=== PATIENT | female | born 1945 | race Hispanic/Latino ===

== ENCOUNTER 2016-10-04 01:47 | Inpatient (IN) | payer MEDICARE ==
[2016-10-04 01:48] VITALS: BMI 47.2
[2016-10-04] MEDS ORDERED: Aspirin 325 mg EC Tablets PO STA (02:29)
[2016-10-04 02:43] LABS: BASO % 0.3 % (0.0-2.0); EOS # 0.1 K/uL (0.0-0.7); EOS % 0.4 % (0.0-4.0); HEMATOCRIT 43.8 % (34.0-47.0); LYMPH # 3.6 K/uL (1.0-4.3); LYMPH % 29.1 % (20.0-40.0); MEAN CORPUSCULAR HEMOGLOBIN 26.1 pg (27.0-31.0); MEAN CORPUSCULAR HGB CONC 31.1 g/dL (33.0-37.0); MONO # 1.3 K/uL (0.0-0.8); MONO % 10.6 % (0.0-10.0); NRBC % 0.7 % (0.0-2.0); WHITE BLOOD COUNT 12.4 K/uL (4.8-10.8)
[2016-10-04] MEDS ORDERED: Midazolam 2 MG/2 ML VIAL ONE (02:49)
[2016-10-04] MEDS ORDERED: Iodixanol 320 MG/ML 100 ML BOTTLE IV ONE (02:50)
[2016-10-04 02:52] LABS: POTASSIUM 4.1 mmol/L (3.6-5.2)
[2016-10-04 02:54] LABS: BILIRUBIN,TOTAL 1.2 mg/dL (0.2-1.3); TOTAL PROTEIN 6.6 g/dL (6.3-8.3)
[2016-10-04 02:58] LABS: ALB/GLOB RATIO 1.1 (1.0-2.1)
[2016-10-04] MEDS ORDERED: Amiodarone 150mg/3 ml vial ONE ×2 (03:03→03:22)
[2016-10-04 03:16] LABS: CALCIUM 14.7 mg/dl (8.6-10.4)
[2016-10-04 03:26] LABS: INR 1.1
--- NOTE | 2016-10-04 03:47 | CP.PCM.PN ---
<Ciara Tidwell DO - Last Filed: 10/04/16 03:40> Subjective - Date & Time of Evaluation Date of Evaluation: 10/04/16 Time of Evaluation: 03:41 - Subjective Subjective: CODE HEART: Patient is a 71 year old female with PMHx of uterine cancer, left breast tumor, hypercalcemia on sensipar, DM, CHF, A.fib, HTN, HLD, DVT/ PE s/p IVC filter placement sent from [facility] for altered mental status and low BP. Patient was brought by ALS to [facility] where Code Heart was activated. Patient received 150mg amiodarone over 10 minutes and was cardioverted twice due to reported a.flutter on EKG in the field. EKG in the ER showed new LBBB compared to prior. Patient was recently hospitalized at [facility] in 08/2016 and had catheterization with bare metal stent placement on 09/01/16. Last echo 08/12/16 showed EF 53%, moderate LVH, normal LV function. Patient was brought to hoisting laborer with director rehabilitation program Dr. Santana. Non-obstructive coronaries were seen on cath. Patient was given additional 150mg amiodarone in hoisting laborer. Patient transferred to ICU s/p cath. ROS unobtainable. PE prior to cath: diaphoretic, shallow breathing with O2 sat 99-100% on non- rebreather, rales heard bilaterally on pulmonary exam, left breast tumor noted, AICD left chest, heart tachycardic, +S1, S2, normal bowel sounds, mild bilateral lower extremity edema Meds per custodial record: losartan 100mg, effient 100mg, sensipar 30mg, metformin 500mg BID, lasix 20mg BID, sotalol 80mg BID, diltiazem 240mg ER, ASA 81mg daily, duoneb q6, atorvastatin 40mg, mucinex, pulmicort q12, omeprazole 20mg, meclizine 25mg q8, promethazine, Eliquis 5mg Objective - Vital Signs/Intake and Output Vital Signs (last 24 hours): Temp Pulse Resp BP Pulse Ox 98 F 127 H 26 H 109/75 100 10/04/16 01:57 10/04/16 03:34 10/04/16 03:34 10/04/16 03:34 10/04/16 03:34 - Medications Medications: Current Medications Heparin Sodium/Sodium Chloride (Heparin 31342 Units/250ml 1/2 Normal Saline) 250 mls @ 9.072 mls/hr IV .Q0M STA; 10 UNITS/KG/HR PRN Reason: Protocol Stop: 10/05/16 06:02 - Labs Labs: 10/04/16 02:39 10/04/16 02:39 PT 12.7 SECONDS (9.7-12.2) H 10/04/16 02:39 INR 1.1 10/04/16 02:39 APTT 122 SECONDS (21-34) H* 10/04/16 02:39 <Ascencion Mederos P - Last Filed: 10/17/16 20:12> Objective - Vital Signs/Intake and Output Vital Signs (last 24 hours): Temp Pulse Resp BP Pulse Ox 97.9 F 88 42 H 93/61 L 94 L 10/06/16 16:00 10/06/16 19:02 10/06/16 19:02 10/06/16 19:02 10/06/16 15:35 - Labs Labs: 10/06/16 06:06 10/06/16 06:06 PT 11.9 SECONDS (9.7-12.2) 10/04/16 08:26 INR 1.1 10/04/16 08:26 APTT 36 SECONDS (21-34) H D 10/04/16 17:33 Attending/Attestation - Attestation I have personally seen and examined this patient.: Yes I have fully participated in the care of the patient.: Yes I have reviewed all pertinent clinical information, including history, physical exam and plan: Yes
[2016-10-04] MEDS: Sodium Chloride 0.9% 1,000 ML IV SCH ×3 (04:33→17:18)
[2016-10-04] MEDS ORDERED: Sodium Chloride 0.9% 500 ML IV ONE (04:41)
[2016-10-04] MEDS: Heparin25000 units/250ml 1/2NS 250 ML IV STA ×2 (05:02→10:55)
[2016-10-04 05:35] LABS: ABG ALLEN TEST POS; CARBOXYHEMOGLOBIN 1.9 % (0.5-1.5); DRAW SITE RT RDIAL; METHEMOGLOBIN 1.1 % (0.0-3.0)
--- NOTE | 2016-10-04 06:24 | C.PDOC ---
History Of Present Illness 71 year old female patient presents to the ED via ALS from her [facility] after being found to have a change in mental status today. ALS notes patient was cardioverted twice and was gave patient 150 mg Amiodarone. Pt denies fever, chills, nausea, headaches, dizziness, or any other complaints. Chief Complaint (Nursing): Chest Pain History/Exam Limitations: None Onset/Duration Of Symptoms: Hrs Current Symptoms Are (Timing): Still Present Severity: Mild Recent travel outside of the [place]: No Associated Symptoms: denies: Fever, Chills Past Medical History Reviewed: Historical Data, Nursing Documentation, Vital Signs Vital Signs: Last Vital Signs Temp 97.5 F L 10/06/16 08:00 Pulse 111 H 10/06/16 08:13 Resp 42 H 10/06/16 08:13 BP 108/57 L 10/06/16 09:08 Pulse Ox 93 L 10/06/16 08:13 - Medical History PMH: Arthritis (knees), Atrial Fibrillation, CAD, Cardia Arrhythmia, CHF, HTN, Hypercholesterolemia, Peripheral Edema (ble +1) Denies: Depression, Chronic Kidney Disease Surgical History: Pacemaker (10 yrs ago [email or web address]) - [employer] Procedures ASSISTANCE WITH RESPIRATORY VENTILATION, <24 HRS, CPAP (01/08/16) AUTOMATIC IMPLANT CARDIOVERTER/DEFIBRILLATOR (AICD) CHECK (11/20/13) DILATION OF 1 COR ART WITH INTRALUM DEV, PERC APPROACH (08/25/16) EXCISION OF LEFT BREAST, PERCUTANEOUS APPROACH, DIAGNOSTIC (08/13/16) EXCISION OF LUMBAR VERTEBRA, PERCUTANEOUS APPROACH, DIAGN (08/25/16) FLUOROSCOPY OF LEFT HEART USING LOW OSMOLAR CONTRAST (08/25/16) FLUOROSCOPY OF MULT COR ART USING L OSM CONTRAST (08/25/16) INJECT ANTICOAGULANT (06/14/14) INTRODUCE OF OTH THERAP SUBST INTO RESP TRACT, VIA OPENING (08/25/16) INTRODUCE OTH THERAP SUBST IN PERIPH VEIN, PERC (01/08/16) INTRODUCE PLATELET INHIBITOR IN PERIPH VEIN, PERC (08/25/16) MEASURE OF CARDIAC SAMPL & PRESSURE, L HEART, PERC APPROACH (08/25/16) OCCUPATIONAL THERAPY (06/18/14) PACKED CELL TRANSFUSION (12/01/14) PHYSICAL THERAPY NEC (06/18/14) SERUM TRANSFUSION NEC (12/01/14) Family History: States: Unknown Family Hx - Social History Hx Tobacco Use: No Hx Alcohol Use: No Hx Substance Use: No - Immunization History Hx Tetanus Toxoid Vaccination: No Hx Influenza Vaccination: Yes Hx Pneumococcal Vaccination: Yes Review Of Systems Except As Marked, All Systems Reviewed And Found Negative. Constitutional: Negative for: Fever, Chills Gastrointestinal: Negative for: Nausea Neurological: Positive for: Altered Mental Status. Negative for: Headache, Dizziness Physical Exam - Physical Exam Appears: Non-toxic, No Acute Distress, Other (Minimal respondant) Skin: No Warm (Cold to touch), Dry, Diaphoretic Head: Atraumatic, Normacephalic Eye(s): bilateral: Normal Inspection Cardiovascular: Rhythm Regular, No Murmur Respiratory: Rales (Rales at the bases) Extremity: Pedal Edema (Lower extremity edema) ED Course And Treatment - Laboratory Results Result Diagrams: 10/06/16 06:06 10/06/16 06:06 ECG: Interpreted By Me, Viewed By Me ECG Rhythm: L BBB (130) Interpretation Of ECG: Questionable ST elevation in V1 V2 O2 Sat by Pulse Oximetry: 91 (O2 mask) Pulse Ox Interpretation: Abnormal Critical Care Time - Critical Care Note Total Time (in mins): 45 Documented critical care: time excludes all time spent performing seperately billable procedures. Medical Decision Making Medical Decision Making: Plans: -Blood work -EKG -Catheterization -Labs -Betapace -Cardizem -Ecotrin -Effient -Eliquis -[place] -Heparin -Protoninix -Budesonide -IV fluids -Reassess and disposition Intervention powderman called for possible STEMI and code heart was called. Disposition - Disposition Disposition: HOSPITALIZED Disposition Time: 02:50 Condition: CRITICAL - Clinical Impression Clinical Impression: Acute myocardial infarction, Congestive heart failure, Altered mental status - Scribe Statement The provider has reviewed the documentation as recorded by the Scribalexandria Beavers All medical record entries made by the Scribe were at my direction and personally dictated by me. I have reviewed the chart and agree that the record accurately reflects my personal performance of the history, physical exam, medical decision making, and the department course for this patient. I have also personally directed, reviewed, and agree with the discharge instructions and disposition.[email or web address] sanders
[2016-10-04 07:00] LABS: RBC URINE 236 /hpf (0-3); URINE BILIRUBIN NEGATIVE (NEGATIVE); URINE BLOOD NEGATIVE (NEGATIVE); URINE COLOR Amber (YELLOW); URINE GLUCOSE (UA) NORMAL (Normal); URINE KETONE NEGATIVE (NEGATIVE); URINE LEUKOCYTE ESTERASE 3+ Leu/uL (Negative); URINE PROTEIN 2+ mg/dL (NEGATIVE); URINE UROBILINOGEN NORMAL mg/dL (0.2-1.0); WBC CLUMPS MANY /hpf; WBC URINE 1619 /hpf (0-5)
[2016-10-04 07:02] LABS: URINE BACTERIA MOD (<OCC)
[2016-10-04] MEDS: (Novolin R) Insulin Human Regular 100 units/ml vial SC SCH ×3 (07:17→18:21)
--- NOTE | 2016-10-04 08:07 | CARDCATH ---
PROCEDURE DATE: 10/04/2016 The patient is a 71-year-old that presents with altered mental status, hypotension with reported vent ricular tachycardia on the field which may have required shock. She has a history of coronary artery disease and most recently on 09/01/2016, underwent cardiac catheterization which revealed nonobstruct calixto disease elsewhere, but an 80% lesion in the obtuse marginal #1 branch which was treated with a ba re-metal stent. EKG on arrival showed left bundle branch block with reciprocal greater than [address] elevations in all leads and, given the history and presentation acute SC was suspected and patient was brought to the cardiac roofing laborer for angiography and possible intervention. The patient was prepped and draped in the usual sterile fashion for right femoral artery access. Usi ng local lidocaine the right femoral artery was accessed and a 6-Afghan sheath was placed. Standard diagnostic catheters were used to visualize the coronary anatomy with the following results: 1. The left main coronary artery was widely patent. 2. The left anterior descending artery showed diffuse luminal irregularities with no significant obs truction and was normal caliber. 3. The left circumflex artery was a normal caliber vessel and all branches were patent and again see n was a stent in the obtuse marginal artery, which is widely patent. 4. The right coronary artery showed mild to moderate diffuse luminal irregularities and was a small caliber vessel. IMPRESSION: 1. No acute obstruction seen in the coronary vessels. 2. Patent obtuse marginal stent. The patient's rhythm remains in atrial fibrillation with rapid ventricular response and wide complex for which amiodarone boluses were given. Also, noted were multiple device leads in the right ventric le and the right atrium on fluoroscopy. PLAN: The patient will be transferred to ICU for hemodynamic monitoring and ongoing care. Saulo Santana MD cc: [id number] TT: 10/04/2016 08:07:01 nhi
--- NOTE | 2016-10-04 08:29 | HP ---
I saw her in the intensive care unit at [facility]. I was called in the middle the night that s he was in the Emergency Room at [facility] and that she was having difficulty with change in men jacob status and the blood pressure was up and down. She was cardioverted twice, was given amiodarone. She is a little bit confused as I talk to her now. She also went to a code heart where they found the coronaries to be open, and she did very well. Now, she is presently in the intensive care unit w ith change in mentation with an elevated calcium which we know she has. PAST MEDICAL HISTORY: CHF; uterine cancer, status post radiation with lumbar metastasis; pulmonary e mbolus, DVT, status post IVC filter; morbid obesity, atrial fibrillation; cardiomyopathy, status post AICD; hypertension, high cholesterol, nephrolithiasis, NSTEMI, recently discharged from [facility] on 08/24/2016. She was also here in [facility] on 08/25/2016 with chest pain, generalized weakness and shortness of breath. Then I sent her from the senior care to the hospital for issues. She has NSTEMIs in the past, pneumonias, kidney stones. She already had biopsy for siva ast mass. In the past, she has had elevated LFTs with lipase of 4000 and higher. BNP is 3700. She h as multiple issues as described. Also cardiomyopathy. PAST SURGICAL HISTORY: Hysterectomy, oophorectomy, AICD, placement of an IVC filter. MEDICATIONS: She is on nystatin, Lasix, Lipitor, valsartan, Eliquis, DuoNeb, sotalol, aspirin, Cardi zem, Pulmicort, clonidine, fentanyl patch. ALLERGIES: SHE IS ALLERGIC TO FISH AND PENICILLIN. SOCIAL HISTORY: She is a former smoker, quit 40 years ago. No alcohol, no drugs. FAMILY HISTORY: Hypertension, diabetes in the family. REVIEW OF SYSTEMS: She is a little bit out of it at this time. It is difficult to get much pertinen t information, but no acute change in vision or hearing. At this present time, no chest pain or shor tness of breath, no abdominal pain. She is uncomfortable in the intensive care unit. No extremity i ssues. No discussion of numbness or tingling or dizziness or vertigo. PHYSICAL EXAMINATION: VITAL SIGNS: Range from 98 temp, 127 pulse, 26 respiratory rate, 109/75 blood pressure, 100 pulse ox . HEENT: Head is atraumatic, normocephalic. Extraocular muscles are intact. Pupils equal, round, marleny ctive to light. Throat is dry. NECK: Supple. HEART: Regular rate and quite tachycardic. LUNGS: Decreased breath sounds, poor inspiration, but clear to auscultation. No wheezes, no rhonchi , no rales. ABDOMEN: Morbidly obese, soft, nontender, positive bowel sounds. She is status post cardiac cathete rization, has to lie flat. EXTREMITIES: With trace edema. SKIN: For the most part is intact. She has groin bandage on secondary to the catheterization. NEUROLOGIC: She is alert, but not oriented x 3. LABORATORY DATA: We have a 142 sodium, potassium 4.1, BUN is 55, creatinine 2.1, GFR is 23, sugar is 91, calcium is up to 14.7. She is on Sensipar. I will call in renal for her elevated BUN and creat inine and elevated calcium. AST is 71, ALT is 143, alkaline phosphatase 132. Troponin is 0.36; I wi ll call in cardiology. Total protein 6.6. She has a 1.1 INR, a 12.4 white count; I called in infect ious disease to make sure we are not missing an infection. Hemoglobin is 13.6, hematocrit is 43.8 an d platelets are 239. Chest x-ray is pending. She is in the intensive care unit, status post cardiac code heart called, cardiac catheterization wit h open coronaries. She has widened V1, V2 on electrocardiogram. She is on multiple medications at t his time: Dextrose, lactobacillus, sotalol, diltiazem, aspirin, Effient, Eliquis, heparin, Miacalcin , Novolin, Protonix. She was given amiodarone or earlier. I called in cardiology, renal and infecti ous disease. Will check her labs tomorrow. Continue with aggressive intensive care unit care. Morro Polanco DO cc: [id number] TT: 10/04/2016 08:29:26 mn
[2016-10-04 08:31] LABS: BASO # 0.1 K/uL (0.0-0.2); BASO % 0.7 % (0.0-2.0); EOS % 0.2 % (0.0-4.0); HEMATOCRIT 43.9 % (34.0-47.0); LYMPH # 3.5 K/uL (1.0-4.3); LYMPH % 28.2 % (20.0-40.0); MEAN CELL VOLUME 83.7 fL (81.0-99.0); MEAN CORPUSCULAR HEMOGLOBIN 26.4 pg (27.0-31.0); MEAN CORPUSCULAR HGB CONC 31.5 g/dL (33.0-37.0); MONO # 1.4 K/uL (0.0-0.8); MONO % 11.6 % (0.0-10.0); NRBC % 0.8 % (0.0-2.0); RED CELL DISTRIBUTION WIDTH 18.7 % (11.5-14.5); WHITE BLOOD COUNT 12.3 K/uL (4.8-10.8)
[2016-10-04 08:39] LABS: INR 1.1
[2016-10-04 08:40] LABS: POTASSIUM 4.2 mmol/L (3.6-5.2)
[2016-10-04 08:42] LABS: BILIRUBIN,TOTAL 1.3 mg/dL (0.2-1.3); PHOSPHOROUS 5.5 mg/dL (2.5-4.5); TOTAL PROTEIN 6.8 g/dL (6.3-8.3)
[2016-10-04 08:43] LABS: MAGNESIUM 2.5 mg/dL (1.6-2.3)
[2016-10-04 09:16] LABS: CALCIUM 14.9 mg/dl (8.6-10.4); TROPONIN I 0.842 ng/mL (0.00-0.120)
[2016-10-04] MEDS ORDERED: diltiaZEM 240 mg/24 Hours CD Cap PO SCH (10:00)
[2016-10-04] MEDS ORDERED: Pantoprazole 40 mg EC Tab PO SCH (10:00)
[2016-10-04] MEDS: Calcitonin 200 Int Units/Inh Nasal Spray (3.7 ml) NS SCH (10:15)
--- NOTE | 2016-10-04 10:44 | CP.PCM.HP ---
Past Patient History - Infectious Disease Hx of Infectious Diseases: None - Tetanus Immunizations Tetanus Immunization: Up to Date - Past Social History Smoking Status: Never Smoked - CARDIAC Hx Atrial Fibrillation: Yes Hx Cardia Arrhythmia: Yes Hx Congestive Heart Failure: Yes Hx Hypercholesterolemia: Yes Hx Hypertension: Yes Hx Pacemaker: Yes (10 yrs ago [employer]) Hx Peripheral Edema: Yes (ble +1) - PULMONARY Hx Respiratory Disorders: Yes (PE) - NEUROLOGICAL Hx Neurological Disorder: No - HEENT Hx HEENT Problems: No - RENAL Hx Chronic Kidney Disease: No - ENDOCRINE/METABOLIC Hx Endocrine Disorders: No - HEMATOLOGICAL/ONCOLOGICAL Hx Blood Transfusions: No Hx Blood Transfusion Reaction: No Other/Comment: LEFT BREAST CA - INTEGUMENTARY Hx Dermatological Problems: No - MUSCULOSKELETAL/RHEUMATOLOGICAL Hx Arthritis: Yes (knees) - GASTROINTESTINAL Hx Gastrointestinal Disorders: No Hx Liver Failure: Yes - GENITOURINARY/GYNECOLOGICAL Hx Genitourinary Disorders: No Hx Uterine Cancer: Yes Other/Comment: LEFT BREAST CA ,, - PSYCHIATRIC Hx Depression: No Hx Substance Use: No - SURGICAL HISTORY Hx Surgeries: Yes - ANESTHESIA Hx Anesthesia: Yes Hx Anesthesia Reactions: Yes Hx Malignant Hyperthermia: No Meds Allergies/Adverse Reactions: Allergies Allergy/AdvReac Type Severity Reaction Status Date / Time FISH Allergy Severe ANAPHYLAXIS Verified 10/04/16 01:55 Penicillins Allergy ANAPHYLAXIS Verified 10/04/16 01:55 Results - Vital Signs Recent Vital Signs: Last Vital Signs Temp 97.5 F L 10/04/16 04:00 Pulse 100 H 10/04/16 07:00 Resp 26 H 10/04/16 07:00 BP 110/69 10/04/16 07:00 Pulse Ox 91 L 10/04/16 06:48 - Labs Result Diagrams: 10/04/16 08:26 10/04/16 08:26 Labs: Laboratory Results - last 24 hr 10/04/16 10/04/16 10/04/16 02:39 05:14 06:40 WBC 12.4 H RBC 5.22 H Hgb 13.6 Hct 43.8 MCV 84.0 MCH 26.1 L MCHC 31.1 L RDW 18.0 H Plt Count 239 MPV 10.0 Neut % (Auto) 59.6 Lymph % (Auto) 29.1 [place] % (Auto) 10.6 H Eos % (Auto) 0.4 Baso % (Auto) 0.3 Neut # 7.4 H Lymph # 3.6 [place] # 1.3 H Eos # 0.1 Baso # 0.0 PT 12.7 H INR 1.1 APTT 122 H* Puncture Site Rt rdial pCO2 41 pO2 85 HCO3 25.3 ABG pH 7.40 ABG Total CO2 26.7 ABG O2 Saturation 97.9 ABG Base Excess 0.5 ABG Hemoglobin 12.5 ABG Carboxyhemoglobin 1.9 H POC ABG HHb (Measured) 2.0 ABG Methemoglobin 1.1 Yoan Test Pos A-a O2 Difference 113.0 Respiratory Index 1.3 Hgb O2 Saturation 95.0 Liter Flow 8.0 FiO2 35.0 Crit Value Called To Devon kemp md Crit Value Called By R alert Crit Value Read Back Y Blood Gas Notified Time 538 Sodium 142 Potassium 4.1 Chloride 100 Carbon Dioxide 25 Anion Gap 21 H BUN 55 H Creatinine 2.1 H Est GFR ( Amer) 28 Est GFR (Non-Af Amer) 23 POC Glucose (mg/dL) Random Glucose 91 Lactic Acid Calcium 14.7 H* Phosphorus Magnesium Total Bilirubin 1.2 AST 71 H ALT 143 H Alkaline Phosphatase 132 H Total Creatine Kinase 47 CK-MB (Mass) 4.90 H Troponin I Troponin I, Quant 0.3610 H* NT-Pro-B Natriuret Pep 5010 H Total Protein 6.6 Albumin 3.4 L Globulin 3.2 Albumin/Globulin Ratio 1.1 Urine Color Becky Urine Clarity Turbid Urine pH 7.0 Ur Specific [place] 1.027 Urine Protein 2+ H Urine Glucose (UA) Normal Urine Ketones Negative Urine Blood Negative Urine Nitrate Negative Urine Bilirubin Negative Urine Urobilinogen Normal Ur Leukocyte Esterase 3+ H Urine WBC (Auto) 1619 H Urine RBC (Auto) 236 H Urine WBC Clumps (Auto) Many H Ur Squamous Epith Cells 4 Amorphous Sediment Moderate H Urine Bacteria Mod H 10/04/16 10/04/16 07:11 08:26 WBC 12.3 H RBC 5.24 H Hgb 13.8 Hct 43.9 MCV 83.7 MCH 26.4 L MCHC 31.5 L RDW 18.7 H Plt Count 243 MPV 10.0 Neut % (Auto) 59.3 Lymph % (Auto) 28.2 [place] % (Auto) 11.6 H Eos % (Auto) 0.2 Baso % (Auto) 0.7 Neut # 7.3 H Lymph # 3.5 [place] # 1.4 H Eos # 0.0 Baso # 0.1 PT 11.9 INR 1.1 APTT 26 D Puncture Site pCO2 pO2 HCO3 ABG pH ABG Total CO2 ABG O2 Saturation ABG Base Excess ABG Hemoglobin ABG Carboxyhemoglobin POC ABG HHb (Measured) ABG Methemoglobin Yoan Test A-a O2 Difference Respiratory Index Hgb O2 Saturation Liter Flow FiO2 Crit Value Called To Crit Value Called By Crit Value Read Back Blood Gas Notified Time Sodium 141 Potassium 4.2 Chloride 99 Carbon Dioxide 27 Anion Gap 19 BUN 55 H Creatinine 2.2 H Est GFR ( Amer) 26 Est GFR (Non-Af Amer) 22 POC Glucose (mg/dL) 92 Random Glucose 81 Lactic Acid 2.5 H Calcium 14.9 H* Phosphorus 5.5 H Magnesium 2.5 H Total Bilirubin 1.3 AST 72 H ALT 137 H Alkaline Phosphatase 136 H Total Creatine Kinase CK-MB (Mass) Troponin I 0.8420 H* Troponin I, Quant NT-Pro-B Natriuret Pep Total Protein 6.8 Albumin 3.4 L Globulin 3.4 Albumin/Globulin Ratio 1.0 Urine Color Urine Clarity Urine pH Ur Specific [place] Urine Protein Urine Glucose (UA) Urine Ketones Urine Blood Urine Nitrate Urine Bilirubin Urine Urobilinogen Ur Leukocyte Esterase Urine WBC (Auto) Urine RBC (Auto) Urine WBC Clumps (Auto) Ur Squamous Epith Cells Amorphous Sediment Urine Bacteria
[2016-10-04] MEDS: Lactobacillus Acidophilus 500 MU Cap PO SCH (10:46)
--- NOTE | 2016-10-04 10:58 | RAD ---
HISTORY: CARDIAC ARRYTHMIA . Technique: Single view portable semi erect @ 02:13. COMPARISON: No prior. FINDINGS: LUNGS: Bilateral infiltrates right greater than left etiology uncertain but likely cardiogenic pulmonary edema. PLEURA: No significant pleural effusion identified, no pneumothorax apparent. CARDIOVASCULAR: Cardiomegaly, CHF. Position/ configuration of pacemaker Satisfactory. OSSEOUS STRUCTURES: No significant abnormalities. VISUALIZED UPPER ABDOMEN: Normal. OTHER FINDINGS: None. IMPRESSION: Cardiomegaly/mild CHF.
--- NOTE | 2016-10-04 12:00 | CP.PCM.CON ---
History of Present Illness - History of Present Illness History of Present Illness: 71 year old female sent from [facility] for altered mental status and low BP. Patient was brought by ALS to [facility] where Code Heart was activated. Patient was cardioverted twice due to reported a.flutter on EKG in the field. Patient was recently hospitalized at [facility] in 08/2016 and had catheterization with bare metal stent placement on 09/01/16. Last echo 08/12/16 showed EF 53%, moderate LVH, normal LV function. Patient was brought to slab tripper with assembling machine operator Dr. Santana. Non-obstructive coronaries were seen on cath. Patient was given additional 150mg amiodarone in slab tripper. Patient transferred to ICU s/p cath. ID CONSULT CALLED FOR LEUKOCYTOSIS SEPTIC WORK UP ORDERED PT HAS ABNORMAL U/A ELEVATED TROPONINS ALLERGIC TO PCN PMH :uterine cancer, left breast tumor, hypercalcemia on sensipar, DM, CHF, A.fib, HTN, HLD, DVT/ PE s/p IVC filter placement Meds per [facility] record: losartan 100mg, effient 100mg, sensipar 30mg, metformin 500mg BID, lasix 20mg BID, sotalol 80mg BID, diltiazem 240mg ER, ASA 81mg daily, duoneb q6, atorvastatin 40mg, mucinex, pulmicort q12, omeprazole 20mg, meclizine 25mg q8, promethazine, Eliquis 5mg Review of Systems - Review of Systems Systems not reviewed;Unavailable: Altered Mental Status Past Patient History - Infectious Disease Hx of Infectious Diseases: None - Tetanus Immunizations Tetanus Immunization: Up to Date - Past Social History Smoking Status: Never Smoked - CARDIAC Hx Atrial Fibrillation: Yes Hx Cardia Arrhythmia: Yes Hx Congestive Heart Failure: Yes Hx Hypercholesterolemia: Yes Hx Hypertension: Yes Hx Pacemaker: Yes (10 yrs ago medtronic) Hx Peripheral Edema: Yes (ble +1) - PULMONARY Hx Respiratory Disorders: Yes (PE) - NEUROLOGICAL Hx Neurological Disorder: No - HEENT Hx HEENT Problems: No - RENAL Hx Chronic Kidney Disease: No - ENDOCRINE/METABOLIC Hx Endocrine Disorders: No - HEMATOLOGICAL/ONCOLOGICAL Hx Blood Transfusions: No Hx Blood Transfusion Reaction: No Other/Comment: LEFT BREAST CA - INTEGUMENTARY Hx Dermatological Problems: No - MUSCULOSKELETAL/RHEUMATOLOGICAL Hx Arthritis: Yes (knees) - GASTROINTESTINAL Hx Gastrointestinal Disorders: No Hx Liver Failure: Yes - GENITOURINARY/GYNECOLOGICAL Hx Genitourinary Disorders: No Hx Uterine Cancer: Yes Other/Comment: LEFT BREAST CA ,, - PSYCHIATRIC Hx Depression: No Hx Substance Use: No - SURGICAL HISTORY Hx Surgeries: Yes - ANESTHESIA Hx Anesthesia: Yes Hx Anesthesia Reactions: Yes Hx Malignant Hyperthermia: No Meds Allergies/Adverse Reactions: Allergies Allergy/AdvReac Type Severity Reaction Status Date / Time FISH Allergy Severe ANAPHYLAXIS Verified 10/04/16 01:55 Penicillins Allergy ANAPHYLAXIS Verified 10/04/16 01:55 - Medications Medications: Current Medications Apixaban (Eliquis) 5 mg PO BID [facility] Aspirin (Ecotrin) 81 mg PO DAILY [facility] Budesonide (Pulmicort Respules) 0.5 mg IH RQ12 [facility] Calcitonin [place] (Miacalcin) 200 iu NS DAILY [facility] Last Admin: 10/04/16 10:15 Dose: 1 spr Diltiazem HCl (Cardizem Cd) 240 mg PO DAILY [facility] Last Admin: 10/04/16 10:47 Dose: Not Given Heparin Sodium/Sodium Chloride (Heparin 14896 Units/250ml 1/2 Normal Saline) 250 mls @ 9.072 mls/hr IV .Q0M STA; 10 UNITS/KG/HR PRN Reason: Protocol Stop: 10/05/16 06:02 Last Admin: 10/04/16 10:55 Dose: 9.072 mls/hr Sodium Chloride (Sodium Chloride 0.9%) 1,000 mls @ 150 mls/hr IV .Q6H40M NIK Last Admin: 10/04/16 10:54 Dose: 150 mls/hr Amiodarone HCl 900 mg/ (Dextrose) 500 mls @ 16.66 mls/hr IV .Q24H NIK; 0.5 MG/ MIN PRN Reason: Protocol Stop: 10/05/16 04:30 Last Admin: 10/04/16 11:01 Dose: 16.66 mls/hr Insulin Human Regular (Novolin R) 0 unit SC ACHS NIK PRN Reason: Protocol Last Admin: 10/04/16 07:17 Dose: Not Given Lactobacillus Acidophilus (Bacid Acidophilus) 1 cap PO DAILY [facility] Last Admin: 10/04/16 10:46 Dose: Not Given Pantoprazole Sodium (Protonix Ec Tab) 40 mg PO DAILY [facility] Prasugrel (Effient) 10 mg PO DAILY [facility] Last Admin: 10/04/16 10:47 Dose: Not Given Sotalol HCl (Betapace) 80 mg PO BID [facility] Last Admin: 10/04/16 10:47 Dose: Not Given Physical Exam - Constitutional Appears: Confused, Chronically Ill - Head Exam Head Exam: NORMOCEPHALIC - Eye Exam Eye Exam: absent: Scleral icterus - ENT Exam ENT Exam: Mucous Membranes Dry - Neck Exam Neck exam: Negative for: Lymphadenopathy - Respiratory Exam Respiratory Exam: Decreased Breath Sounds, Rhonchi - Cardiovascular Exam Cardiovascular Exam: REGULAR RHYTHM, +S1, +S2 - GI/Abdominal Exam GI & Abdominal Exam: Diminished Bowel Sounds, Distended, Soft. absent: Tenderness - Rectal Exam Rectal Exam: Deferred - Exam Exam: NORMAL INSPECTION - Extremities Exam Extremities exam: Positive for: pedal edema, pedal pulses present. Negative for : calf tenderness, tenderness - Back Exam Back exam: absent: CVA tenderness (L), CVA tenderness (R) - Neurological Exam Neurological exam: Altered - Psychiatric Exam Psychiatric exam: Depressed - Skin Skin Exam: Dry Results - Vital Signs Recent Vital Signs: Last Vital Signs Temp 97.5 F L 10/04/16 04:00 Pulse 114 H 10/04/16 11:01 Resp 24 10/04/16 11:01 BP 111/66 10/04/16 11:01 Pulse Ox 94 L 10/04/16 11:01 - Labs Result Diagrams: 10/04/16 08:26 10/04/16 08:26 Labs: Laboratory Results - last 24 hr 10/04/16 10/04/16 10/04/16 02:39 05:14 06:40 WBC 12.4 H RBC 5.22 H Hgb 13.6 Hct 43.8 MCV 84.0 MCH 26.1 L MCHC 31.1 L RDW 18.0 H Plt Count 239 MPV 10.0 Neut % (Auto) 59.6 Lymph % (Auto) 29.1 [place] % (Auto) 10.6 H Eos % (Auto) 0.4 Baso % (Auto) 0.3 Neut # 7.4 H Lymph # 3.6 [place] # 1.3 H Eos # 0.1 Baso # 0.0 PT 12.7 H INR 1.1 APTT 122 H* Puncture Site Rt rdial pCO2 41 pO2 85 HCO3 25.3 ABG pH 7.40 ABG Total CO2 26.7 ABG O2 Saturation 97.9 ABG Base Excess 0.5 ABG Hemoglobin 12.5 ABG Carboxyhemoglobin 1.9 H POC ABG HHb (Measured) 2.0 ABG Methemoglobin 1.1 Yoan Test Pos A-a O2 Difference 113.0 Respiratory Index 1.3 Hgb O2 Saturation 95.0 Liter Flow 8.0 FiO2 35.0 Crit Value Called To Devon kemp md Crit Value Called By R alert Crit Value Read Back Y Blood Gas Notified Time 538 Sodium 142 Potassium 4.1 Chloride 100 Carbon Dioxide 25 Anion Gap 21 H BUN 55 H Creatinine 2.1 H Est GFR ( Amer) 28 Est GFR (Non-Af Amer) 23 POC Glucose (mg/dL) Random Glucose 91 Lactic Acid Calcium 14.7 H* Phosphorus Magnesium Total Bilirubin 1.2 AST 71 H ALT 143 H Alkaline Phosphatase 132 H Total Creatine Kinase 47 CK-MB (Mass) 4.90 H Troponin I Troponin I, Quant 0.3610 H* NT-Pro-B Natriuret Pep 5010 H Total Protein 6.6 Albumin 3.4 L Globulin 3.2 Albumin/Globulin Ratio 1.1 Urine Color Becky Urine Clarity Turbid Urine pH 7.0 Ur Specific [place] 1.027 Urine Protein 2+ H Urine Glucose (UA) Normal Urine Ketones Negative Urine Blood Negative Urine Nitrate Negative Urine Bilirubin Negative Urine Urobilinogen Normal Ur Leukocyte Esterase 3+ H Urine WBC (Auto) 1619 H Urine RBC (Auto) 236 H Urine WBC Clumps (Auto) Many H Ur Squamous Epith Cells 4 Amorphous Sediment Moderate H Urine Bacteria Mod H 10/04/16 10/04/16 07:11 08:26 WBC 12.3 H RBC 5.24 H Hgb 13.8 Hct 43.9 MCV 83.7 MCH 26.4 L MCHC 31.5 L RDW 18.7 H Plt Count 243 MPV 10.0 Neut % (Auto) 59.3 Lymph % (Auto) 28.2 [place] % (Auto) 11.6 H Eos % (Auto) 0.2 Baso % (Auto) 0.7 Neut # 7.3 H Lymph # 3.5 [place] # 1.4 H Eos # 0.0 Baso # 0.1 PT 11.9 INR 1.1 APTT 26 D Puncture Site pCO2 pO2 HCO3 ABG pH ABG Total CO2 ABG O2 Saturation ABG Base Excess ABG Hemoglobin ABG Carboxyhemoglobin POC ABG HHb (Measured) ABG Methemoglobin Yoan Test A-a O2 Difference Respiratory Index Hgb O2 Saturation Liter Flow FiO2 Crit Value Called To Crit Value Called By Crit Value Read Back Blood Gas Notified Time Sodium 141 Potassium 4.2 Chloride 99 Carbon Dioxide 27 Anion Gap 19 BUN 55 H Creatinine 2.2 H Est GFR ( Amer) 26 Est GFR (Non-Af Amer) 22 POC Glucose (mg/dL) 92 Random Glucose 81 Lactic Acid 2.5 H Calcium 14.9 H* Phosphorus 5.5 H Magnesium 2.5 H Total Bilirubin 1.3 AST 72 H ALT 137 H Alkaline Phosphatase 136 H Total Creatine Kinase CK-MB (Mass) Troponin I 0.8420 H* Troponin I, Quant NT-Pro-B Natriuret Pep Total Protein 6.8 Albumin 3.4 L Globulin 3.4 Albumin/Globulin Ratio 1.0 Urine Color Urine Clarity Urine pH Ur Specific [place] Urine Protein Urine Glucose (UA) Urine Ketones Urine Blood Urine Nitrate Urine Bilirubin Urine Urobilinogen Ur Leukocyte Esterase Urine WBC (Auto) Urine RBC (Auto) Urine WBC Clumps (Auto) Ur Squamous Epith Cells Amorphous Sediment Urine Bacteria Assessment & Plan (1) Congestive heart failure Status: Acute (2) Hypercalcemia Status: Acute (3) Primary hyperparathyroidism Status: Acute (4) UTI (urinary tract infection) Status: Acute - Assessment and Plan (Free Text) Assessment: UTI R/O SYSTEMIC INFECTION CHF NSTEMI ALLERGY TO PCN START AVELOX AWAIT CULTURES Plan: START AZACTAM AND GIVE ONE DOSE VANCO PENDING CULTURES
[2016-10-04] MEDS ORDERED: Vancomycin 1 gm/NS 200 ml 200 ML IVPB STA (12:15)
--- NOTE | 2016-10-04 12:50 | CARD ---
APPROVED REPORT EKG Measurement Heart [id number] <Conclusion> Wide-complex tachycardia, cannot rule out V. tach. "slow V. tach" Left bundle branch block Abnormal ECG
--- NOTE | 2016-10-04 12:58 | CP.PCM.CON ---
History of Present Illness - History of Present Illness History of Present Illness: pt seen and examined, full consult is dictated # 1. jenny 2. hypercalcemia 3. AMS 4. UTI 5. left breast CA 6. NSTEMI, s/p cardiac cath c/w non obstructiv coronaries continue ivf ns at 150 ml/hr continue calcitonin iv abx a sper ID check u/s of RUQ r/o acue blake add lasix 40 mg ivp bid after well hydration over all prognosis is guarded Past Patient History - Infectious Disease Hx of Infectious Diseases: None - Tetanus Immunizations Tetanus Immunization: Up to Date - Past Social History Smoking Status: Never Smoked - CARDIAC Hx Atrial Fibrillation: Yes Hx Cardia Arrhythmia: Yes Hx Congestive Heart Failure: Yes Hx Hypercholesterolemia: Yes Hx Hypertension: Yes Hx Pacemaker: Yes (10 yrs ago medtronic) Hx Peripheral Edema: Yes (ble +1) - PULMONARY Hx Respiratory Disorders: Yes (PE) - NEUROLOGICAL Hx Neurological Disorder: No - HEENT Hx HEENT Problems: No - RENAL Hx Chronic Kidney Disease: No - ENDOCRINE/METABOLIC Hx Endocrine Disorders: No - HEMATOLOGICAL/ONCOLOGICAL Hx Blood Transfusions: No Hx Blood Transfusion Reaction: No Other/Comment: LEFT BREAST CA - INTEGUMENTARY Hx Dermatological Problems: No - MUSCULOSKELETAL/RHEUMATOLOGICAL Hx Arthritis: Yes (knees) - GASTROINTESTINAL Hx Gastrointestinal Disorders: No Hx Liver Failure: Yes - GENITOURINARY/GYNECOLOGICAL Hx Genitourinary Disorders: No Hx Uterine Cancer: Yes Other/Comment: LEFT BREAST CA ,, - PSYCHIATRIC Hx Depression: No Hx Substance Use: No - SURGICAL HISTORY Hx Surgeries: Yes - ANESTHESIA Hx Anesthesia: Yes Hx Anesthesia Reactions: Yes Hx Malignant Hyperthermia: No Meds Allergies/Adverse Reactions: Allergies Allergy/AdvReac Type Severity Reaction Status Date / Time FISH Allergy Severe ANAPHYLAXIS Verified 10/04/16 01:55 Penicillins Allergy ANAPHYLAXIS Verified 10/04/16 01:55 - Medications Medications: Current Medications Apixaban (Eliquis) 5 mg PO BID [facility] Last Admin: 10/04/16 12:18 Dose: Not Given Aspirin (Ecotrin) 81 mg PO DAILY [facility] Last Admin: 10/04/16 12:17 Dose: Not Given Budesonide (Pulmicort Respules) 0.5 mg IH RQ12 [facility] Calcitonin [place] (Miacalcin) 200 iu NS DAILY [facility] Last Admin: 10/04/16 10:15 Dose: 1 spr Diltiazem HCl (Cardizem Cd) 240 mg PO DAILY [facility] Last Admin: 10/04/16 10:47 Dose: Not Given Heparin Sodium/Sodium Chloride (Heparin 94619 Units/250ml 1/2 Normal Saline) 250 mls @ 9.072 mls/hr IV .Q0M STA; 10 UNITS/KG/HR PRN Reason: Protocol Stop: 10/05/16 06:02 Last Admin: 10/04/16 10:55 Dose: 9.072 mls/hr Sodium Chloride (Sodium Chloride 0.9%) 1,000 mls @ 150 mls/hr IV .Q6H40M NIK Last Admin: 10/04/16 10:54 Dose: 150 mls/hr Amiodarone HCl 900 mg/ (Dextrose) 500 mls @ 16.66 mls/hr IV .Q24H NIK; 0.5 MG/ MIN PRN Reason: Protocol Stop: 10/05/16 04:30 Last Admin: 10/04/16 11:01 Dose: 16.66 mls/hr Aztreonam 1 gm/ Sodium (Chloride) 100 mls @ 200 mls/hr IVPB Q8H NIK Vancomycin/Sodium Chloride (Vancocin) 200 mls @ 133.333 mls/hr IVPB STAT STA Stop: 10/04/16 13:44 Insulin Human Regular (Novolin R) 0 unit SC ACHS NIK PRN Reason: Protocol Last Admin: 10/04/16 07:17 Dose: Not Given Lactobacillus Acidophilus (Bacid Acidophilus) 1 cap PO DAILY [facility] Last Admin: 10/04/16 10:46 Dose: Not Given Pantoprazole Sodium (Protonix Ec Tab) 40 mg PO DAILY [facility] Last Admin: 10/04/16 12:18 Dose: Not Given Prasugrel (Effient) 10 mg PO DAILY [facility] Last Admin: 10/04/16 10:47 Dose: Not Given Sotalol HCl (Betapace) 80 mg PO BID [facility] Last Admin: 10/04/16 10:47 Dose: Not Given Results - Vital Signs Recent Vital Signs: Last Vital Signs Temp 97.5 F L 10/04/16 04:00 Pulse 114 H 10/04/16 11:01 Resp 24 10/04/16 11:01 BP 111/66 10/04/16 11:01 Pulse Ox 94 L 10/04/16 11:01 - Labs Result Diagrams: 10/04/16 08:26 10/04/16 08:26 Labs: Laboratory Results - last 24 hr 10/04/16 10/04/16 10/04/16 02:39 05:14 06:40 WBC 12.4 H RBC 5.22 H Hgb 13.6 Hct 43.8 MCV 84.0 MCH 26.1 L MCHC 31.1 L RDW 18.0 H Plt Count 239 MPV 10.0 Neut % (Auto) 59.6 Lymph % (Auto) 29.1 [place] % (Auto) 10.6 H Eos % (Auto) 0.4 Baso % (Auto) 0.3 Neut # 7.4 H Lymph # 3.6 [place] # 1.3 H Eos # 0.1 Baso # 0.0 PT 12.7 H INR 1.1 APTT 122 H* Puncture Site Rt rdial pCO2 41 pO2 85 HCO3 25.3 ABG pH 7.40 ABG Total CO2 26.7 ABG O2 Saturation 97.9 ABG Base Excess 0.5 ABG Hemoglobin 12.5 ABG Carboxyhemoglobin 1.9 H POC ABG HHb (Measured) 2.0 ABG Methemoglobin 1.1 Yoan Test Pos A-a O2 Difference 113.0 Respiratory Index 1.3 Hgb O2 Saturation 95.0 Liter Flow 8.0 FiO2 35.0 Crit Value Called To Devon kemp md Crit Value Called By R alert Crit Value Read Back Y Blood Gas Notified Time 538 Sodium 142 Potassium 4.1 Chloride 100 Carbon Dioxide 25 Anion Gap 21 H BUN 55 H Creatinine 2.1 H Est GFR ( Amer) 28 Est GFR (Non-Af Amer) 23 POC Glucose (mg/dL) Random Glucose 91 Lactic Acid Calcium 14.7 H* Phosphorus Magnesium Total Bilirubin 1.2 AST 71 H ALT 143 H Alkaline Phosphatase 132 H Total Creatine Kinase 47 CK-MB (Mass) 4.90 H Troponin I Troponin I, Quant 0.3610 H* NT-Pro-B Natriuret Pep 5010 H Total Protein 6.6 Albumin 3.4 L Globulin 3.2 Albumin/Globulin Ratio 1.1 Urine Color Becky Urine Clarity Turbid Urine pH 7.0 Ur Specific [place] 1.027 Urine Protein 2+ H Urine Glucose (UA) Normal Urine Ketones Negative Urine Blood Negative Urine Nitrate Negative Urine Bilirubin Negative Urine Urobilinogen Normal Ur Leukocyte Esterase 3+ H Urine WBC (Auto) 1619 H Urine RBC (Auto) 236 H Urine WBC Clumps (Auto) Many H Ur Squamous Epith Cells 4 Amorphous Sediment Moderate H Urine Bacteria Mod H 10/04/16 10/04/16 10/04/16 07:11 08:26 11:31 WBC 12.3 H RBC 5.24 H Hgb 13.8 Hct 43.9 MCV 83.7 MCH 26.4 L MCHC 31.5 L RDW 18.7 H Plt Count 243 MPV 10.0 Neut % (Auto) 59.3 Lymph % (Auto) 28.2 [place] % (Auto) 11.6 H Eos % (Auto) 0.2 Baso % (Auto) 0.7 Neut # 7.3 H Lymph # 3.5 [place] # 1.4 H Eos # 0.0 Baso # 0.1 PT 11.9 INR 1.1 APTT 26 D Puncture Site pCO2 pO2 HCO3 ABG pH ABG Total CO2 ABG O2 Saturation ABG Base Excess ABG Hemoglobin ABG Carboxyhemoglobin POC ABG HHb (Measured) ABG Methemoglobin Yoan Test A-a O2 Difference Respiratory Index Hgb O2 Saturation Liter Flow FiO2 Crit Value Called To Crit Value Called By Crit Value Read Back Blood Gas Notified Time Sodium 141 Potassium 4.2 Chloride 99 Carbon Dioxide 27 Anion Gap 19 BUN 55 H Creatinine 2.2 H Est GFR ( Amer) 26 Est GFR (Non-Af Amer) 22 POC Glucose (mg/dL) 92 86 Random Glucose 81 Lactic Acid 2.5 H Calcium 14.9 H* Phosphorus 5.5 H Magnesium 2.5 H Total Bilirubin 1.3 AST 72 H ALT 137 H Alkaline Phosphatase 136 H Total Creatine Kinase CK-MB (Mass) Troponin I 0.8420 H* Troponin I, Quant NT-Pro-B Natriuret Pep Total Protein 6.8 Albumin 3.4 L Globulin 3.4 Albumin/Globulin Ratio 1.0 Urine Color Urine Clarity Urine pH Ur Specific [place] Urine Protein Urine Glucose (UA) Urine Ketones Urine Blood Urine Nitrate Urine Bilirubin Urine Urobilinogen Ur Leukocyte Esterase Urine WBC (Auto) Urine RBC (Auto) Urine WBC Clumps (Auto) Ur Squamous Epith Cells Amorphous Sediment Urine Bacteria
[2016-10-04] MEDS: Budesonide 0.5 mg/2 ml Inhal Susp UD IH SCH ×2 (13:35→19:26)
[2016-10-04] MEDS ORDERED: Aztreonam 1 GM in Sodium Chloride 0.9% 100 ML IVPB SCH (14:00)
[2016-10-04 15:37] LABS: BASO # 0.1 K/uL (0.0-0.2); EOS % 0.1 % (0.0-4.0); HEMATOCRIT 40.1 % (34.0-47.0); LYMPH # 3.6 K/uL (1.0-4.3); LYMPH % 29.4 % (20.0-40.0); MEAN CELL VOLUME 84.9 fL (81.0-99.0); MEAN CORPUSCULAR HEMOGLOBIN 26.3 pg (27.0-31.0); MEAN PLATELET VOLUME 9.9 fL (7.2-11.7); MONO # 1.6 K/uL (0.0-0.8); NRBC % 0.8 % (0.0-2.0); RED CELL DISTRIBUTION WIDTH 17.9 % (11.5-14.5); WHITE BLOOD COUNT 12.4 K/uL (4.8-10.8)
--- NOTE | 2016-10-04 15:40 | CP.PCM.CON ---
History of Present Illness - History of Present Illness History of Present Illness: PGY-1 consult for ICU, Dr. Long CC: AMS/Hypotension HPI: Patient is a 71 year old female with PMHx of uterine cancer, left breast tumor, hypercalcemia on sensipar, DM, CHF, A.fib, HTN, HLD, DVT/ PE s/p IVC filter placement, morbid obesity, sent from [facility] for altered mental status and hypotension. Patient was brought by ALS to [facility] where Code Heart was activated. Patient EKG in the field showed a-flutter and pt was given 150mg amiodarone over 10 minutes and was cardioverted twice. EKG in the ER showed new LBBB compared to prior. Patient was recently hospitalized at [facility] in 08/2016 and had catheterization with bare metal stent placement on 09/01/16. Patient was brought to laboratory veterinarian with apiculture teacher Dr. Santana. Non-obstructive coronaries were seen on cath. Patient was given additional 150mg amiodarone in laboratory veterinarian. Patient transferred to ICU s/p cath. ROS unobtainable. Last echo performed on 08/12/16 showed EF 53%, moderate LVH, normal LV function. PMD: Dr. Morro Polanco PMHx: see above PSHx: Hysterectomy, oopherectomy, AICD, IVC filter Meds per [facility] record: Losartan 100mg, effient 100mg, sensipar 30mg, metformin 500mg BID, lasix 20mg BID, sotalol 80mg BID, diltiazem 240mg ER, ASA 81mg daily, duoneb q6h, atorvastatin 40mg, mucinex, pulmicort q12, omeprazole 20mg, meclizine 25mg q8, Promethazine, Eliquis 5mg Allergies: Fish, Penicillin (Anaphylaxis) SHx: Quit smoking 40 years ago. Family denies alcohol, drug abuse Family hx: HTN, DM Review of Systems - Review of Systems Systems not reviewed;Unavailable: Altered Mental Status Past Patient History - Infectious Disease Hx of Infectious Diseases: None - Tetanus Immunizations Tetanus Immunization: Up to Date - Past Social History Smoking Status: Former Smoker Alcohol: None Drugs: Denies - CARDIAC Hx Atrial Fibrillation: Yes Hx Cardia Arrhythmia: Yes Hx Congestive Heart Failure: Yes Hx Hypercholesterolemia: Yes Hx Hypertension: Yes Hx Pacemaker: Yes (10 yrs ago medtronic) Hx Peripheral Edema: Yes (ble +1) - PULMONARY Hx Respiratory Disorders: Yes (PE) - NEUROLOGICAL Hx Neurological Disorder: No - HEENT Hx HEENT Problems: No - RENAL Hx Chronic Kidney Disease: No - ENDOCRINE/METABOLIC Hx Endocrine Disorders: No - HEMATOLOGICAL/ONCOLOGICAL Hx Blood Transfusions: No Hx Blood Transfusion Reaction: No Other/Comment: LEFT BREAST CA - INTEGUMENTARY Hx Dermatological Problems: No - MUSCULOSKELETAL/RHEUMATOLOGICAL Hx Arthritis: Yes (knees) - GASTROINTESTINAL Hx Gastrointestinal Disorders: No Hx Liver Failure: Yes - GENITOURINARY/GYNECOLOGICAL Hx Genitourinary Disorders: No Hx Uterine Cancer: Yes Other/Comment: LEFT BREAST CA ,, - PSYCHIATRIC Hx Depression: No Hx Substance Use: No - SURGICAL HISTORY Hx Surgeries: Yes - ANESTHESIA Hx Anesthesia: Yes Hx Anesthesia Reactions: Yes Hx Malignant Hyperthermia: No Meds Allergies/Adverse Reactions: Allergies Allergy/AdvReac Type Severity Reaction Status Date / Time FISH Allergy Severe ANAPHYLAXIS Verified 10/04/16 01:55 Penicillins Allergy ANAPHYLAXIS Verified 10/04/16 01:55 - Medications Medications: Current Medications Apixaban (Eliquis) 5 mg PO BID [facility] Last Admin: 10/04/16 12:18 Dose: Not Given Aspirin (Ecotrin) 81 mg PO DAILY [facility] Last Admin: 10/04/16 12:17 Dose: Not Given Budesonide (Pulmicort Respules) 0.5 mg IH RQ12 [facility] Last Admin: 10/04/16 13:35 Dose: 0.5 mg Calcitonin [place] (Miacalcin) 200 iu NS DAILY [facility] Last Admin: 10/04/16 10:15 Dose: 1 spr Diltiazem HCl (Cardizem Cd) 240 mg PO DAILY [facility] Last Admin: 10/04/16 10:47 Dose: Not Given Heparin Sodium/Sodium Chloride (Heparin 76625 Units/250ml 1/2 Normal Saline) 250 mls @ 9.072 mls/hr IV .Q0M STA; 10 UNITS/KG/HR PRN Reason: Protocol Stop: 10/05/16 06:02 Last Admin: 10/04/16 10:55 Dose: 9.072 mls/hr Sodium Chloride (Sodium Chloride 0.9%) 1,000 mls @ 150 mls/hr IV .Q6H40M [facility] Last Admin: 10/04/16 10:54 Dose: 150 mls/hr Amiodarone HCl 900 mg/ (Dextrose) 500 mls @ 16.66 mls/hr IV .Q24H NIK; 0.5 MG/ MIN PRN Reason: Protocol Stop: 10/05/16 04:30 Last Admin: 10/04/16 11:01 Dose: 16.66 mls/hr Aztreonam 1 gm/ Sodium (Chloride) 100 mls @ 200 mls/hr IVPB Q8H [facility] Insulin Human Regular (Novolin R) 0 unit SC ACHS NIK PRN Reason: Protocol Last Admin: 10/04/16 13:50 Dose: Not Given Lactobacillus Acidophilus (Bacid Acidophilus) 1 cap PO DAILY [facility] Last Admin: 10/04/16 10:46 Dose: Not Given Pantoprazole Sodium (Protonix Ec Tab) 40 mg PO DAILY [facility] Last Admin: 10/04/16 12:18 Dose: Not Given Prasugrel (Effient) 10 mg PO DAILY [facility] Last Admin: 10/04/16 10:47 Dose: Not Given Sotalol HCl (Betapace) 80 mg PO BID [facility] Last Admin: 10/04/16 10:47 Dose: Not Given Physical Exam - Constitutional Appears: Confused, Chronically Ill - Head Exam Head Exam: ATRAUMATIC, NORMAL INSPECTION, NORMOCEPHALIC - Eye Exam Eye Exam: EOMI. absent: Scleral icterus Pupil Exam: PERRL - ENT Exam ENT Exam: Mucous Membranes Dry - Neck Exam Neck exam: Negative for: Lymphadenopathy - Respiratory Exam Respiratory Exam: Decreased Breath Sounds, Rhonchi - Cardiovascular Exam Cardiovascular Exam: REGULAR RHYTHM, +S1, +S2 - GI/Abdominal Exam GI & Abdominal Exam: Diminished Bowel Sounds, Distended, Soft. absent: Rigid - Extremities Exam Extremities exam: Positive for: pedal edema, pedal pulses present - Neurological Exam Neurological exam: Alert - Skin Skin Exam: Dry, Normal Color, Warm Results - Vital Signs Recent Vital Signs: Last Vital Signs Temp 98.0 F 10/04/16 12:00 Pulse 123 H 10/04/16 13:34 Resp 33 H 10/04/16 13:34 BP 116/77 10/04/16 13:34 Pulse Ox 94 L 10/04/16 13:34 - Labs Result Diagrams: 10/04/16 15:34 10/04/16 15:34 Labs: Laboratory Results - last 24 hr 10/04/16 10/04/16 10/04/16 02:39 05:14 06:40 WBC 12.4 H RBC 5.22 H Hgb 13.6 Hct 43.8 MCV 84.0 MCH 26.1 L MCHC 31.1 L RDW 18.0 H Plt Count 239 MPV 10.0 Neut % (Auto) 59.6 Lymph % (Auto) 29.1 Craven % (Auto) 10.6 H Eos % (Auto) 0.4 Baso % (Auto) 0.3 Neut # 7.4 H Lymph # 3.6 Craven # 1.3 H Eos # 0.1 Baso # 0.0 PT 12.7 H INR 1.1 APTT 122 H* Puncture Site Rt rdial pCO2 41 pO2 85 HCO3 25.3 ABG pH 7.40 ABG Total CO2 26.7 ABG O2 Saturation 97.9 ABG Base Excess 0.5 ABG Hemoglobin 12.5 ABG Carboxyhemoglobin 1.9 H POC ABG HHb (Measured) 2.0 ABG Methemoglobin 1.1 Yoan Test Pos A-a O2 Difference 113.0 Respiratory Index 1.3 Hgb O2 Saturation 95.0 Liter Flow 8.0 FiO2 35.0 Crit Value Called To Devon kemp md Crit Value Called By R alert Crit Value Read Back Y Blood Gas Notified Time 538 Sodium 142 Potassium 4.1 Chloride 100 Carbon Dioxide 25 Anion Gap 21 H BUN 55 H Creatinine 2.1 H Est GFR ( Amer) 28 Est GFR (Non-Af Amer) 23 POC Glucose (mg/dL) Random Glucose 91 Lactic Acid Calcium 14.7 H* Phosphorus Magnesium Total Bilirubin 1.2 AST 71 H ALT 143 H Alkaline Phosphatase 132 H Total Creatine Kinase 47 CK-MB (Mass) 4.90 H Troponin I Troponin I, Quant 0.3610 H* NT-Pro-B Natriuret Pep 5010 H Total Protein 6.6 Albumin 3.4 L Globulin 3.2 Albumin/Globulin Ratio 1.1 Urine Color Becky Urine Clarity Turbid Urine pH 7.0 Ur Specific [place] 1.027 Urine Protein 2+ H Urine Glucose (UA) Normal Urine Ketones Negative Urine Blood Negative Urine Nitrate Negative Urine Bilirubin Negative Urine Urobilinogen Normal Ur Leukocyte Esterase 3+ H Urine WBC (Auto) 1619 H Urine RBC (Auto) 236 H Urine WBC Clumps (Auto) Many H Ur Squamous Epith Cells 4 Amorphous Sediment Moderate H Urine Bacteria Mod H 10/04/16 10/04/16 10/04/16 07:11 08:26 11:31 WBC 12.3 H RBC 5.24 H Hgb 13.8 Hct 43.9 MCV 83.7 MCH 26.4 L MCHC 31.5 L RDW 18.7 H Plt Count 243 MPV 10.0 Neut % (Auto) 59.3 Lymph % (Auto) 28.2 Craven % (Auto) 11.6 H Eos % (Auto) 0.2 Baso % (Auto) 0.7 Neut # 7.3 H Lymph # 3.5 Craven # 1.4 H Eos # 0.0 Baso # 0.1 PT 11.9 INR 1.1 APTT 26 D Puncture Site pCO2 pO2 HCO3 ABG pH ABG Total CO2 ABG O2 Saturation ABG Base Excess ABG Hemoglobin ABG Carboxyhemoglobin POC ABG HHb (Measured) ABG Methemoglobin Yoan Test A-a O2 Difference Respiratory Index Hgb O2 Saturation Liter Flow FiO2 Crit Value Called To Crit Value Called By Crit Value Read Back Blood Gas Notified Time Sodium 141 Potassium 4.2 Chloride 99 Carbon Dioxide 27 Anion Gap 19 BUN 55 H Creatinine 2.2 H Est GFR ( Amer) 26 Est GFR (Non-Af Amer) 22 POC Glucose (mg/dL) 92 86 Random Glucose 81 Lactic Acid 2.5 H Calcium 14.9 H* Phosphorus 5.5 H Magnesium 2.5 H Total Bilirubin 1.3 AST 72 H ALT 137 H Alkaline Phosphatase 136 H Total Creatine Kinase CK-MB (Mass) Troponin I 0.8420 H* Troponin I, Quant NT-Pro-B Natriuret Pep Total Protein 6.8 Albumin 3.4 L Globulin 3.4 Albumin/Globulin Ratio 1.0 Urine Color Urine Clarity Urine pH Ur Specific [place] Urine Protein Urine Glucose (UA) Urine Ketones Urine Blood Urine Nitrate Urine Bilirubin Urine Urobilinogen Ur Leukocyte Esterase Urine WBC (Auto) Urine RBC (Auto) Urine WBC Clumps (Auto) Ur Squamous Epith Cells Amorphous Sediment Urine Bacteria Assessment & Plan - Assessment and Plan (Free Text) Assessment: 71 F female with PMHx significant for uterine CA, mets to left breast/ bone, hypercalcemia, DM CHF, Afib, HTN, HLD, DVT/PE, who is s/p cardiac cath. Cath showed no coronary blockages. Plan: Neuro: Altered mental status - son reports as of noon yesterday pt was AAO x 3 Now pt oriented to person only Neurochecks q6H f/u CT head to eval for mets Cardio: Consulted Dr Tenorio - f/u reccs Consulted Dr. Francois - will interrogate device Cardiac Cath, by Dr. Rocha, showed no coronary blockages Troponin I & II - elevated but downtrending (0.361, 0.842, 0.4970) EKG: (field: aflutter - 150mg amiodarone; cardioverted twice). EKG in ED: new LBBB compared to prior. Recently hospitalization at [facility] (08/2016). Cardiac catheterization with bare metal stent placement on 09/01/16. Currently Afib w. RVR Hx of NSTEMIs per PMD Dr. Polanco AICD in left chest BNP: 5010 Eliquis 5mg PO BID ASA 81mg PO Daily Amiodarone drip Heparin Drip discontinued Cardizem 240mg PO daily Pulm: Pt on 7L O2; O2 sat 95% Pulmicort capsules 0.5 mg IH RQ12 Endo: Diabetes Sliding scale - Novolin R Accucheck q6H Maintain Euglycemia GI: NPO diet For NG tube @ 8pm oon 10/04 Transaminitis: LFTs 71/143, Alk phos 132 on presentation - decreased on PM labs: 65/119, Alk phos decreased to 120 - f/u US abdomen to r/o cholecystitis : UTI: UA (10/04/16) 2+ protein, 3+ LE, 1619 WBC, RBC 236, WBC clumps Many, Amorphous sediment, Bacteria Moderate Monitor I/Os Renal: Acute Renal failure Dr. Cabrera consulted - IVF @ 150 mls/hr - recommend RUQ US r/o acute blake - Lasix 40mg IVP BID after hydration BUN/Cr: 55/2.2 Monitor I/Os Daily CMP Hem/Onc: Pt with hx of uterine CA w. mets to Left breast, bone, lung - Pt recently had biopsy for breast mass - Breast CA: hormone positive, her [address] Schultz consulted - Start Pamidronate Hypercalcemia: 14.9 @ presentation, 13.9 on PM labs - Pt on sensipar 30mg PO BID as OPDX - Calcitonin 200 iu NS Daily Leukocytosis: WBC 12.4 on admission BRYAN Guzmán, consulted - Start Azactam 1 gm IV Q12H (renally dosed) - Vancomycin 1 gm IV ONE TIME DOSE - f/u Random Vanco level H&H stable - Type and screen Abnormal Coag PT 12.7, INR 1.1. APTT 122 Daily CBC ID: Leukocytosis: WBC: 12.4 on admission, 12.6 on afternoon labs BRYAN Guzmán, consulted - Start Azactam 1 gm IV Q12H (renally dosed) - Vancomycin 1 gm IV ONE TIME DOSE - f/u Random Vanco level - f/u blood and urine cx Daily CBC Prophylaxis: GI: Protonix 40mg IV Daily DVT: contraindicated due to previous placement of IVC filter
[2016-10-04 15:46] LABS: POTASSIUM 3.8 mmol/L (3.6-5.2)
[2016-10-04 15:48] LABS: BILIRUBIN,TOTAL 1.3 mg/dL (0.2-1.3)
[2016-10-04 15:49] LABS: PHOSPHOROUS 4.6 mg/dL (2.5-4.5); TOTAL PROTEIN 6.2 g/dL (6.3-8.3)
[2016-10-04 15:50] LABS: MAGNESIUM 2.3 mg/dL (1.6-2.3)
[2016-10-04 16:10] LABS: CALCIUM 13.9 mg/dl (8.6-10.4)
[2016-10-04 16:11] LABS: TROPONIN I 0.497 ng/mL (0.00-0.120)
--- NOTE | 2016-10-04 16:38 | RAD ---
HISTORY: Central line placement. Technique: Single view portable semi erect @ 15:50. COMPARISON: October 04, 2016. Study performed 02:13. FINDINGS: LUNGS: Stable infiltrates PLEURA: No significant pleural effusion identified, no pneumothorax apparent. CARDIOVASCULAR: Cardiomegaly. No evidence of acute, significant cardiovascular disease. Position/ configuration of pacemaker Satisfactory. OSSEOUS STRUCTURES: No significant abnormalities. VISUALIZED UPPER ABDOMEN: Normal. OTHER FINDINGS: Venous access catheter inserted via a left internal jugular approach identified. The tip is at the confluence of the left subclavian vein and the SVC. No pneumothorax identified. IMPRESSION: Satisfactory position of recently placed venous access catheter. No adverse findings/no pneumothorax. Otherwise no interval change.
[2016-10-04] MEDS ORDERED: Zoledronic Acid 4 mg/100 ml Inj(Zometa) IV ONE ×2 (16:58→17:00)
--- NOTE | 2016-10-04 17:12 | CON ---
DATE: 10/04/2016 The patient is located in ICU bed 9. Requested by Dr[address] Morro Polanco. REASON FOR RENAL CONSULTATION: Acute renal failure, hypercalcemia. The patient is an 71-year-old obese female with a past medical history significant for hypertension, questionable diabetes, CAD, cardiac arrhythmia, CHF, cardiomyopathy with LV function about 35%, and DVT, PE status post IVC filter, and arthritis, and status post AICD placement, who was recently discharged from the [facility]. The patient was also found to have a left breast mass status post biopsy of the mass consistent with breast cancer, recently [facility]. From there, the patient was sent to the Emergency Room, for, altered mental status. The patient was cardioverted twice and also received amiodarone 150 mg. This patient underwent cardiac catheterization. code heart was activated and the patient underwent cardiac cath, and found to have nonobstructive coronary disease. The patient is very drowsy. Opens eyes to deep painful stimuli. Not in distress, on nasal cannula. Unable to get much history from the patient. Chart reviewed and history obtained from the review of the medical record and the EMR. PAST MEDICAL HISTORY: significant for osteoarthritis of knees, AFib, CAD, cardiac arrhythmia, CHF, poor LV function, ejection fraction about 35%; status post stent placement and CHF, hypertension, hypercholesterolemia, bilateral lower extremity edema, a DVT, and PE, and also history of uterine CA, and mets to the spine. PAST SURGICAL HISTORY: Status post pacemaker placement about 10 years ago. ALLERGIES: TO FISH AND PENICILLIN. FAMILY HISTORY: Not significant. SOCIAL HISTORY: No smoking, no alcohol, or drug abuse. IMMUNIZATION HISTORY: Tetanus Vaccine -- no, and influenza vaccine -- yes. Pneumococcal Vaccine: Yes. CURRENT MEDICATIONS: Include as follows: Amiodarone 900 mg in 500 mL at 16.6 mL per hour, Azactam 1 g q. 8 hours, Bacid 1 capsule p.o. daily, and sotalol 80 mg p.o. b.i.d., Cardizem 240 mg p.o. daily, and Ecotrin 81 mg daily, and Effient 10 mg p.o. daily, and Eliquis 5 mg p.o. b.i.d., and IV heparin at 9 mL per hour, and Miacalcin 200 international units subQ, and Novolin R for sliding scale, and Protonix 40 mg p.o. daily, and Pulmicort inhaler q. 12 hours, and IV fluids of normal saline at 150 mL per hour, and vancomycin 1 g IV piggyback x 1 dose. FAMILY HISTORY: Not significant. REVIEW OF SYSTEMS: Significant for altered mental status, AFib with rapid ventricular response, and all other review of systems are reviewed and are negative. VITAL SIGNS ON PHYSICAL EXAMINATION: As far as blood pressure, 111/66; pulse 114, respirations 24, and saturation 94%, and temperature is 97.5. HENT AND PHYSICAL EXAMINATION: The patient apparently is a 71-year-old obese female, well built, well nourished, not in acute distress. HENT: Pupils normal, reactive to light and accommodation. Conjunctivae pink, sclerae anicteric. Tongue is dry, and trachea is midline. LUNGS: Symmetric on both sides. Bilateral breath sounds present. CARDIOVASCULAR: [place] in the 5th intercostal space midclavicular line. S1, S2 audible. Irregularly irregular, tachycardic. Left breast lump present. ABDOMEN: Normal in appearance. Soft, tympanic. [id number]-hl-[id number] right upper quadrant tenderness present. No guarding, no rigidity. Bowel sounds present. No hepatosplenomegaly. No abdominal bruits. CENTRAL NERVOUS SYSTEM: The patient is drowsy. Opens eyes to painful stimuli. EXTREMITIES: No cyanosis, no clubbing, no edema. I'S AND O'S SINCE ADMISSION: Intake is 1049 and output is 130 mL, and positive 900 mL. LABORATORY DATA: Includes as follows as of 10/04/2016: WBC 12.3, hemoglobin 13.8, hematocrit is 43.9, platelets 243. PT 11.9 and PTT 26. Sodium 141, potassium 4.2, chloride 99, CO2 of 27, BUN 55, creatinine 2.2, glucose 81, calcium of 14.9, the lactic acid is 2.5. Phosphorus 5.5, magnesium 2.0, total bili 1.3. AST 72, ALT 137, alkaline phos is 136, and CPK of 47. Troponin 0.0361 and 0.842, and proBNP 5010, and total protein 6.8, albumin is 3.4. Urine Analysis: Becky, turbid; pH 7, specific gravity 1.027, protein 2+, glucose normal, ketones negative, blood negative, nitrites negative, bilirubin negative, urobilinogen normal, leukocyte esterase 3+, WBCs 1619, RBC 236, bacteria moderate, amorphous sediment moderate, and WBC clumps moderate. THE OTHER LABORATORY DATA: Chest x-ray as of 10/04/2016: Cardiomegaly, mild CHF. Cardiac Cath Report Impression: No acute obstruction seen in the coronary vessels, and patent obtuse marginal stent. REVIEW OF THE OTHER REPORTS FROM THE PREVIOUS ADMISSION, [facility]: Surgical pathology report from 09/03/2016: The biopsy of lytic L4 vertebral body mass: Metastatic carcinoma compatible with breast primary. Left breast mass trocar needle biopsy as of 08/13/2016: Impression: Invasive ductal carcinoma. In summary, the patient is a 71-year-old very obese female with a history of multiple medical problems: Hypertension, coronary artery disease, history of uterine CA, left breast tumor, diabetes, CHF, AFib, hypertension, hyperlipidemia, DVT, PE status post IVC filter, status post AICD in the left subclavian region, status post biopsy of the L4 lytic lesion consistent with metastatic carcinoma, and left breast biopsy consistent with invasive ductal carcinoma, with an ejection fraction about 53% from the last echo on 08/12/2016 , status post CAD and stent placement on 09/11/2016, was [facility] with altered mental status, and status post cardioversion x 2, and status post cardiac cath this morning consistent with nonobstructive coronary disease and elevated troponins, with increased serum calcium, and increased BUN and creatinine. 1. Nonoliguric acute renal failure most likely secondary to intravascular volume depletion. Cannot rule secondary to hypercalcemia and intrarenal vasoconstriction. 2. Hypercalcemia most likely secondary to malignancy. Continue Miacalcin, and continue IV fluids normal saline at 150 mL per hour, and may need to increase Miacalcin. Consider endocrinology or oncology evaluation for better control of the hypercalcemia. 3. Urinary tract infection. 4. Coronary artery disease status post cardiac catheterization, consistent with nonobstructive coronary disease. 5. Atrial fibrillation with rapid ventricular response. Continue IV antibiotics as per the ID recommendations. Will follow with you. Thank you for allowing me to participate in your patient's care, and avoid nephrotoxic agent at this time. Avoid metformin. Augusta Kelley MD cc: [id number] TT: 10/04/2016 17:11:41 Confirmation # [id number] Dictation # [id number]
--- NOTE | 2016-10-04 17:12 | CP.PCM.CON ---
History of Present Illness - History of Present Illness History of Present Illness: Chart reviewed. 71 yo woman admitted from [facility], with AMS, hypotension, found to be hyperccalcemic. She has several comorbidities including CHF, H/O P.E, s/p IVC filter, h/o uterine cancer, recently diagnosed with metastatic hormone positive, [id number] negative breast cancer to the bones, unclear if hormonal therapy or bisphosphonate treatment initiated. Patient currently in ICU Past Patient History - Infectious Disease Hx of Infectious Diseases: None - Tetanus Immunizations Tetanus Immunization: Up to Date - Past Social History Smoking Status: Former Smoker Alcohol: None Drugs: Denies - CARDIAC Hx Atrial Fibrillation: Yes Hx Cardia Arrhythmia: Yes Hx Congestive Heart Failure: Yes Hx Hypercholesterolemia: Yes Hx Hypertension: Yes Hx Pacemaker: Yes (10 yrs ago medtronic) Hx Peripheral Edema: Yes (ble +1) - PULMONARY Hx Respiratory Disorders: Yes (PE) - NEUROLOGICAL Hx Neurological Disorder: No - HEENT Hx HEENT Problems: No - RENAL Hx Chronic Kidney Disease: No - ENDOCRINE/METABOLIC Hx Endocrine Disorders: No - HEMATOLOGICAL/ONCOLOGICAL Hx Blood Transfusions: No Hx Blood Transfusion Reaction: No Other/Comment: LEFT BREAST CA - INTEGUMENTARY Hx Dermatological Problems: No - MUSCULOSKELETAL/RHEUMATOLOGICAL Hx Arthritis: Yes (knees) - GASTROINTESTINAL Hx Gastrointestinal Disorders: No Hx Liver Failure: Yes - GENITOURINARY/GYNECOLOGICAL Hx Genitourinary Disorders: No Hx Uterine Cancer: Yes Other/Comment: LEFT BREAST CA ,, - PSYCHIATRIC Hx Depression: No Hx Substance Use: No - SURGICAL HISTORY Hx Surgeries: Yes - ANESTHESIA Hx Anesthesia: Yes Hx Anesthesia Reactions: Yes Hx Malignant Hyperthermia: No Meds Allergies/Adverse Reactions: Allergies Allergy/AdvReac Type Severity Reaction Status Date / Time FISH Allergy Severe ANAPHYLAXIS Verified 10/04/16 01:55 Penicillins Allergy ANAPHYLAXIS Verified 10/04/16 01:55 - Medications Medications: Current Medications Apixaban (Eliquis) 5 mg PO BID [facility] Last Admin: 10/04/16 12:18 Dose: Not Given Aspirin (Ecotrin) 81 mg PO DAILY [facility] Last Admin: 10/04/16 12:17 Dose: Not Given Budesonide (Pulmicort Respules) 0.5 mg IH RQ12 [facility] Last Admin: 10/04/16 13:35 Dose: 0.5 mg Calcitonin [place] (Miacalcin) 200 iu NS DAILY [facility] Last Admin: 10/04/16 10:15 Dose: 1 spr Diltiazem HCl (Cardizem Cd) 240 mg PO DAILY [facility] Last Admin: 10/04/16 10:47 Dose: Not Given Heparin Sodium/Sodium Chloride (Heparin 49044 Units/250ml 1/2 Normal Saline) 250 mls @ 9.072 mls/hr IV .Q0M STA; 10 UNITS/KG/HR PRN Reason: Protocol Stop: 10/05/16 06:02 Last Admin: 10/04/16 10:55 Dose: 9.072 mls/hr Sodium Chloride (Sodium Chloride 0.9%) 1,000 mls @ 150 mls/hr IV .Q6H40M NIK Last Admin: 10/04/16 10:54 Dose: 150 mls/hr Amiodarone HCl 900 mg/ (Dextrose) 500 mls @ 16.66 mls/hr IV .Q24H NIK; 0.5 MG/ MIN PRN Reason: Protocol Stop: 10/05/16 04:30 Last Admin: 10/04/16 11:01 Dose: 16.66 mls/hr Aztreonam 1 gm/ Sodium (Chloride) 100 mls @ 200 mls/hr IVPB Q12H [facility] Insulin Human Regular (Novolin R) 0 unit SC Q6H NIK PRN Reason: Protocol Lactobacillus Acidophilus (Bacid Acidophilus) 1 cap PO DAILY [facility] Last Admin: 10/04/16 10:46 Dose: Not Given Pantoprazole Sodium (Protonix Inj) 40 mg IVP DAILY [facility] Prasugrel (Effient) 10 mg PO DAILY [facility] Last Admin: 10/04/16 10:47 Dose: Not Given Sotalol HCl (Betapace) 80 mg PO BID [facility] Last Admin: 10/04/16 10:47 Dose: Not Given Zoledronic Acid (Zometa) 4 mg IV ONCE ONE Stop: 10/04/16 17:01 Results - Vital Signs Recent Vital Signs: Last Vital Signs Temp 98.0 F 10/04/16 16:00 Pulse 123 H 10/04/16 13:34 Resp 24 10/04/16 16:00 BP 116/77 10/04/16 13:34 Pulse Ox 96 10/04/16 16:00 - Labs Result Diagrams: 10/04/16 15:34 10/04/16 15:34 Labs: Laboratory Results - last 24 hr 10/04/16 10/04/16 10/04/16 02:39 05:14 06:40 WBC 12.4 H RBC 5.22 H Hgb 13.6 Hct 43.8 MCV 84.0 MCH 26.1 L MCHC 31.1 L RDW 18.0 H Plt Count 239 MPV 10.0 Neut % (Auto) 59.6 Lymph % (Auto) 29.1 [place] % (Auto) 10.6 H Eos % (Auto) 0.4 Baso % (Auto) 0.3 Neut # 7.4 H Lymph # 3.6 [place] # 1.3 H Eos # 0.1 Baso # 0.0 PT 12.7 H INR 1.1 APTT 122 H* Puncture Site Rt rdial pCO2 41 pO2 85 HCO3 25.3 ABG pH 7.40 ABG Total CO2 26.7 ABG O2 Saturation 97.9 ABG Base Excess 0.5 ABG Hemoglobin 12.5 ABG Carboxyhemoglobin 1.9 H POC ABG HHb (Measured) 2.0 ABG Methemoglobin 1.1 Yoan Test Pos A-a O2 Difference 113.0 Respiratory Index 1.3 Hgb O2 Saturation 95.0 Liter Flow 8.0 FiO2 35.0 Crit Value Called To Devon kemp md Crit Value Called By R alert Crit Value Read Back Y Blood Gas Notified Time 538 Sodium 142 Potassium 4.1 Chloride 100 Carbon Dioxide 25 Anion Gap 21 H BUN 55 H Creatinine 2.1 H Est GFR ( Amer) 28 Est GFR (Non-Af Amer) 23 POC Glucose (mg/dL) Random Glucose 91 Lactic Acid Calcium 14.7 H* Phosphorus Magnesium Total Bilirubin 1.2 AST 71 H ALT 143 H Alkaline Phosphatase 132 H Total Creatine Kinase 47 CK-MB (Mass) 4.90 H Troponin I Troponin I, Quant 0.3610 H* NT-Pro-B Natriuret Pep 5010 H Total Protein 6.6 Albumin 3.4 L Globulin 3.2 Albumin/Globulin Ratio 1.1 Procalcitonin Urine Color Becky Urine Clarity Turbid Urine pH 7.0 Ur Specific [place] 1.027 Urine Protein 2+ H Urine Glucose (UA) Normal Urine Ketones Negative Urine Blood Negative Urine Nitrate Negative Urine Bilirubin Negative Urine Urobilinogen Normal Ur Leukocyte Esterase 3+ H Urine WBC (Auto) 1619 H Urine RBC (Auto) 236 H Urine WBC Clumps (Auto) Many H Ur Squamous Epith Cells 4 Amorphous Sediment Moderate H Urine Bacteria Mod H 10/04/16 10/04/16 10/04/16 07:11 08:26 11:31 WBC 12.3 H RBC 5.24 H Hgb 13.8 Hct 43.9 MCV 83.7 MCH 26.4 L MCHC 31.5 L RDW 18.7 H Plt Count 243 MPV 10.0 Neut % (Auto) 59.3 Lymph % (Auto) 28.2 [place] % (Auto) 11.6 H Eos % (Auto) 0.2 Baso % (Auto) 0.7 Neut # 7.3 H Lymph # 3.5 [place] # 1.4 H Eos # 0.0 Baso # 0.1 PT 11.9 INR 1.1 APTT 26 D Puncture Site pCO2 pO2 HCO3 ABG pH ABG Total CO2 ABG O2 Saturation ABG Base Excess ABG Hemoglobin ABG Carboxyhemoglobin POC ABG HHb (Measured) ABG Methemoglobin Yoan Test A-a O2 Difference Respiratory Index Hgb O2 Saturation Liter Flow FiO2 Crit Value Called To Crit Value Called By Crit Value Read Back Blood Gas Notified Time Sodium 141 Potassium 4.2 Chloride 99 Carbon Dioxide 27 Anion Gap 19 BUN 55 H Creatinine 2.2 H Est GFR ( Amer) 26 Est GFR (Non-Af Amer) 22 POC Glucose (mg/dL) 92 86 Random Glucose 81 Lactic Acid 2.5 H Calcium 14.9 H* Phosphorus 5.5 H Magnesium 2.5 H Total Bilirubin 1.3 AST 72 H ALT 137 H Alkaline Phosphatase 136 H Total Creatine Kinase CK-MB (Mass) Troponin I 0.8420 H* Troponin I, Quant NT-Pro-B Natriuret Pep Total Protein 6.8 Albumin 3.4 L Globulin 3.4 Albumin/Globulin Ratio 1.0 Procalcitonin Urine Color Urine Clarity Urine pH Ur Specific [place] Urine Protein Urine Glucose (UA) Urine Ketones Urine Blood Urine Nitrate Urine Bilirubin Urine Urobilinogen Ur Leukocyte Esterase Urine WBC (Auto) Urine RBC (Auto) Urine WBC Clumps (Auto) Ur Squamous Epith Cells Amorphous Sediment Urine Bacteria 10/04/16 15:34 WBC 12.4 H RBC 4.72 Hgb 12.4 Hct 40.1 MCV 84.9 MCH 26.3 L MCHC 31.0 L RDW 17.9 H Plt Count 212 MPV 9.9 Neut % (Auto) 56.5 Lymph % (Auto) 29.4 [place] % (Auto) 13.0 H Eos % (Auto) 0.1 Baso % (Auto) 1.0 Neut # 7.0 Lymph # 3.6 [place] # 1.6 H Eos # 0.0 Baso # 0.1 PT INR APTT Puncture Site pCO2 pO2 HCO3 ABG pH ABG Total CO2 ABG O2 Saturation ABG Base Excess ABG Hemoglobin ABG Carboxyhemoglobin POC ABG HHb (Measured) ABG Methemoglobin Yoan Test A-a O2 Difference Respiratory Index Hgb O2 Saturation Liter Flow FiO2 Crit Value Called To Crit Value Called By Crit Value Read Back Blood Gas Notified Time Sodium 142 Potassium 3.8 Chloride 102 Carbon Dioxide 25 Anion Gap 19 BUN 51 H Creatinine 1.9 H Est GFR ( Amer) 31 Est GFR (Non-Af Amer) 26 POC Glucose (mg/dL) Random Glucose 86 Lactic Acid Calcium 13.9 H* Phosphorus 4.6 H Magnesium 2.3 Total Bilirubin 1.3 AST 65 H ALT 119 H Alkaline Phosphatase 120 Total Creatine Kinase CK-MB (Mass) Troponin I 0.4970 H* Troponin I, Quant NT-Pro-B Natriuret Pep Total Protein 6.2 L Albumin 3.1 L Globulin 3.1 Albumin/Globulin Ratio 1.0 Procalcitonin 0.37 Urine Color Urine Clarity Urine pH Ur Specific [place] Urine Protein Urine Glucose (UA) Urine Ketones Urine Blood Urine Nitrate Urine Bilirubin Urine Urobilinogen Ur Leukocyte Esterase Urine WBC (Auto) Urine RBC (Auto) Urine WBC Clumps (Auto) Ur Squamous Epith Cells Amorphous Sediment Urine Bacteria Assessment & Plan - Assessment and Plan (Free Text) Assessment: Metastatic hormone positive breast cancer to the bones, recently diagnosed, ? treatment not begun yet, new hypercalcemia most likely multifactorial, related to cancer, relative immobility, ?dehydration. Currently on IVF, Calcitonin,. Will add bisphosphonates. When patient improves, discussion regarding hormonal therapy needs to be made( Faslodex versus PO aromatase inhibitor) - Date & Time Date: 10/04/16 Time: 17:21
[2016-10-04] MEDS: Aztreonam 1 GM in Sodium Chloride 0.9% 100 ML IVPB SCH (17:15)
[2016-10-04] MEDS ORDERED: (Novolin R) Insulin Human Regular 100 units/ml vial SC SCH (18:00)
--- NOTE | 2016-10-04 18:25 | CON ---
DATE: 10/04/2016 REASON FOR CONSULTATION: Wide complex tachycardia, as well as paroxysmal atrial fibrillation. The patient is a 71-year-old female who has a history of a uterine cancer with lumbar metastasis, acc ording to the primary physician, and also recent diagnosis with breast cancer. The patient has a his tory of coronary artery disease; underwent stenting to obtuse marginal branch last month at [facility]. She does carry the diagnosis of cardiomyopathy, has an ICD placement. However, her ejectio n fraction was normal at the time of the cardiac catheterization last month. The patient has chronic renal insufficiency. She has an ICD and dual chamber pacemaker placement, and suffers from paroxysm al atrial fibrillation. The patient initially presented because of altered mental status. The patie nt was in rapid atrial fibrillation that required defibrillation twice, and was placed on amiodarone therapy. Code heart was activated and the patient was found to have patent stent in obtuse marginal branch with otherwise unremarkable coronary circulation. The patient does have a history of DVT and pulmonary embolism in the past. The patient has no reported respiratory failure so far. CURRENT MEDICATIONS: Amiodarone infusion, Azactam 1 g intravenous q. 12, Betapace 80 mg twice a day, Cardizem CD 240 mg once a day, Effient 10 mg once a day, Eliquis 5 mg twice a day, intravenous hepar in infusion in a therapeutic regimen, Lasix 20 mg intravenous twice a day, Protonix 40 mg intravenous once a day, normal saline 150 mL an hour. PAST MEDICAL HISTORY: Uterine cancer with lumbar metastasis, breast cancer, paroxysmal atrial fibril lation, ICD placement, chronic renal insufficiency. PHYSICAL EXAMINATION: The patient is an elderly female who is currently lethargic, tachypneic. VITAL SIGNS: Blood pressure 116/77, heart rate 123, temperature 98, respirations 24. HENT: Normocephalic. NECK: No JVD. CHEST: Bilateral rhonchi. HEART: S1, S2, irregular. ABDOMEN: Soft. EXTREMITIES: 1+ pitting edema. LABORATORY DATA: Today's BUN and creatinine are 51 and 1.9 respectively. There is within norm al limits. Calcium is elevated at 13.9. Troponins were 0.842 and 0.497. Both are mildly elevated. Today's PT, PTT, and INR are within normal limits. CBC: WBC is 12.4, hemoglobin 12.4, hematocrit 4 0.1, platelet count 212,000. EKG revealed wide complex tachycardia with left bundle branch block pattern as a rate of 131, possibl e slow ventricular tachycardia. Chest x-ray could not be opened on the [place] database. The offic ial report stated cardiomegaly, mild CHF. ASSESSMENT: 1. Rapid atrial fibrillation. 2. Consider ventricular tachycardia. 3. Coronary artery disease status post coronary stenting last month at [facility]. 4. Paroxysmal atrial fibrillation. 5. Metastatic uterine cancer, and newly diagnosed breast cancer. 6. Hypercalcemia. 7. History of pulmonary embolism and deep vein thrombosis with IVC filter placement. RECOMMENDATIONS: Continue current IV amiodarone. Continue IV Azactam. Continue oral Eliquis, Rand nt, Tracye CD, Betapace . The case was discussed with , the information security risk analyst, who would evaluate the patient now. I recommend obtaining CT scan of the head to rule out cerebral metastasis that may limit the option o f full anticoagulation. The patient will likely need interrogation and reprogramming of the ICD. Ranjith Dougherty MD cc: [id number] TT: 10/04/2016 18:25:08 Confirmation # [id number] Dictation # [id number] nadeem
--- NOTE | 2016-10-04 18:32 | CARD ---
APPROVED REPORT EXAM: Two-dimensional and M-mode echocardiogram with Doppler and color Doppler. Other Information Quality : GoodPoorRhythm : INDICATION Atrial Fibrillation Pulmonary Embolism Congestive Heart Failure RISK FACTORS Hypertension Obesity M-Mode DIMENSIONS Left Atrium (MM)3.50 (2.5-4.0cm)Aortic Root3.30 (2.2-3.7cm) Aortic Cusp Exc.1.98 (1.5-2.0cm) Mitral Valve MV E [id number]/sE/A ratio0.0 TDI E/Lateral E'0.0E/Medial E'0.0 LEFT VENTRICLE The Left Ventricle is moderately dilated. Probable mild to moderate concentric left ventricular hypertrophy. Grossly normal contractility. Undetermined Undetermined RIGHT VENTRICLE The right ventricular systolic function is normal. Linear density anterior to right ventricular free wall of unclear etiology. ATRIA Probably normal size to borderline dilated. The right atrium is not well visualized. AORTIC VALVE The aortic valve is not well visualized. MITRAL VALVE The mitral valve is normal in structure. TRICUSPID VALVE The tricuspid valve is not well visualized. PULMONIC VALVE The pulmonic valve is not well visualized. GREAT VESSELS The IVC is normal in size and collapses >50% with inspiration. <Conclusion> TECHNICALLY VERY DIFFICULT STUDY DUE TO POOR ACOUSTIC WINDOWS. Probable mild to moderate concentric left ventricular hypertrophy. Grossly preserved contractility. The right ventricular systolic function is grossly normal. Linear density anterior to right ventricular free wall of unclear etiology. The mitral valve is normal in structure.
[2016-10-04] MEDS ORDERED: diltiaZEM 240 mg/24 Hours CD Cap PO STA (20:14)
[2016-10-04] MEDS ORDERED: Sotalol 40 mg Tab PO STA (20:14)
[2016-10-05] MEDS: (Novolin R) Insulin Human Regular 100 units/ml vial SC SCH ×4 (00:17→18:09)
[2016-10-05] MEDS: Sodium Chloride 0.9% 1,000 ML IV SCH ×5 (00:20→19:40)
[2016-10-05] MEDS: Aztreonam 1 GM in Sodium Chloride 0.9% 100 ML IVPB SCH ×2 (05:09→17:43)
[2016-10-05 06:25] LABS: HEMATOCRIT 37.7 % (34.0-47.0); MEAN CELL VOLUME 85.1 fL (81.0-99.0); MEAN CORPUSCULAR HEMOGLOBIN 26.4 pg (27.0-31.0); MEAN PLATELET VOLUME 9.5 fL (7.2-11.7); RED CELL DISTRIBUTION WIDTH 18.4 % (11.5-14.5); WHITE BLOOD COUNT 12.3 K/uL (4.8-10.8)
[2016-10-05 06:37] LABS: POTASSIUM 3.6 mmol/L (3.6-5.2)
[2016-10-05 06:39] LABS: BILIRUBIN,TOTAL 0.7 mg/dL (0.2-1.3); TOTAL PROTEIN 5.9 g/dL (6.3-8.3)
[2016-10-05 06:40] LABS: MAGNESIUM 2.2 mg/dL (1.6-2.3); PHOSPHOROUS 4.4 mg/dL (2.5-4.5)
[2016-10-05 06:56] LABS: CALCIUM 14.4 mg/dl (8.6-10.4)
--- NOTE | 2016-10-05 07:31 | PN ---
DATE: 10/05/2016 I saw the patient in the intensive care unit, room 3, with the nurse. She is alert. She is talking. She is still confused. There is an NG tube in her nose. Both her wrists are restrained with mitts. She has multiple issues. When you ask her if she is in any pain, she denies it, so she is in and out of coherence. PHYSICAL EXAMINATION: VITAL SIGNS: 98.7 temp, 66 pulse, 151/65 blood pressure, 27 respiratory rate, 94% O2 sat. HEENT: Head is atraumatic, normocephalic. NG tube in place. Throat is moist. NECK: Supple. HEART: r rate, a little tachy, and irregular. LUNGS: Decreased breath sounds, poor inspiration, fairly clear to auscultation. ABDOMEN: Soft, morbidly obese, nontender, positive bowel sounds. EXTREMITIES: Trace edema. Upper extremities are wrist restrained. MEDICATIONS: She is currently on aztreonam, lactobacillus, Betapace, Cardizem, Ecotrin, Effient, Eliquis, Lasix IV, Miacalcin, Novolin, Protonix, Pulmicort and IV fluids at 150 mL an hour. LABORATORY DATA: She has a 12.4 white count (still elevated), 12.4 hemoglobin, 40.1 hematocrit with 212 platelets. Sodium 142, potassium 3.8, BUN 51, creatinine 1.9 (it is a little bit better than when she came in), sugar was 86, calcium is 13.9 (still quite elevated; it was 14.9 so it is coming down a little bit), phosphorus 4.6, magnesium 2.3. Total bilirubin is 1.3, AST is 65, ALT is 119, alkaline phosphatase 120. Troponin is 0.4, total protein 6.2, procalcitonin 0.37. Urine is moderate bacteria, many white count. She is being seen by numerous physicians: Infectious disease, renal, oncology and cardiac. 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 Will continue with aggressive treatment and care. Check her labs tomorrow. Hopefully, get her off of the wrist restraints. The NG tube to come out when possible, but she is critical with multiple issues. Hopefully, she will respond to treatment and pull through. Morro Polanco DO cc: [id number] TT: 10/05/2016 07:11:58 Confirmation # [id number] Dictation # [id number] nhi NATARAJAN
[2016-10-05] MEDS: Budesonide 0.5 mg/2 ml Inhal Susp UD IH SCH ×2 (07:48→19:37)
[2016-10-05] MEDS: Calcitonin 200 Int Units/Inh Nasal Spray (3.7 ml) NS SCH (10:24)
[2016-10-05] MEDS: Lactobacillus Acidophilus 500 MU Cap PO SCH (10:26)
--- NOTE | 2016-10-05 11:02 | US ---
HISTORY: increased lfts, alk phos; eval for blake COMPARISON: None available TECHNIQUE: Sonographic evaluation of the abdomen. FINDINGS: Incidental note is made of small right pleural effusion. LIVER: Measures 14.9 cm in sagittal dimension. Echogenic liver may be seen in setting of hepatic parenchymal disease or fatty infiltration. No focal hepatic mass identified. The main portal vein appears patent with normal directional flow. No intrahepatic bile duct dilatation. GALLBLADDER: No gallstones. No gallbladder wall thickening. Negative sonographic Patel's sign as assessed by the hearing aid technician. COMMON BILE DUCT: Measures 6 mm. PANCREAS: Not well visualized. RIGHT KIDNEY: Measures 10.3 x 4.9 x 5.0 cm. 2.3 x 1.9 x 1.8 cm cyst. No obstructing calculus or hydronephrosis identified. LEFT KIDNEY: Measures 10.4 x 4.6 x 5.2 cm. 2.0 x 1.3 x 1.5 cm cyst. 1.4 x 1.1 x 1.3 cm non shadowing echogenic lesion within the lower pole left kidney suspected to reflect an angiomyolipoma. No obstructing calculus or hydronephrosis identified. SPLEEN: Not well-visualized. The splenic measurement could not be obtained. AORTA: Limited views appear unremarkable. IVC: Limited views appear unremarkable. OTHER FINDINGS: None. IMPRESSION: Limited study as above. Bilateral upper pole renal cysts. 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 No hydronephrosis or obstructing calculus evident. Echogenic liver may be seen in setting of hepatic parenchymal disease or fatty infiltration. Incidental note is made of small right pleural effusion.
--- NOTE | 2016-10-05 11:29 | CP.CCUPN ---
<Talon Waggoner - Last Filed: 10/05/16 17:07> CCU Subjective - Physician Review Subjective (Free Text): 10/05/16 11:00 Pt seen and examined at bedside. She has improved arousability today, and is able to follow commands. Pt oriented to person only. Because pt still somnolent swallow eval was not performed today. Tube feedings initiated. ROS limited due to pt clinical condition. Palliative consult was called and family meeting resulted in family accepting DNR/DNI. Critical Care Time Spent (in minutes): 40 CCU Objective - Vital Signs / Intake & Output Vital Signs (Last 4 hours): Vital Signs Temp Pulse Resp BP Pulse Ox 10/05/16 10:00 70 28 H 95 10/05/16 09:58 70 34 H 135/61 95 10/05/16 09:43 69 25 H 132/58 L 95 10/05/16 09:24 67 27 H 94/42 L 94 L 10/05/16 09:05 70 26 H 95 10/05/16 09:00 71 25 H 94 L 10/05/16 08:24 80 12 151/80 H 95 10/05/16 08:00 97.7 F 80 13 96 10/05/16 07:24 74 22 143/77 92 L 10/05/16 07:10 75 18 94 L 10/05/16 07:04 77 15 144/63 95 Intake and Output (Last 8hrs): Intake & Output 10/04/16 10/05/16 10/05/16 22:59 06:59 14:59 Intake Total 2270.0 1416.9 630 Output Total 585 495 235 Balance 1685.0 921.9 395 Weight 233 lb 3.2 oz Intake: Intake, IV Amount 2170.0 1416.9 600 Right Hand 36.4 Left Hand 150 Left Proximal Port Hand 16.7 Left Medial Port Internal 116.9 116.9 Jugular Left Proximal Port 1350 1200 600 Internal Jugular Left Distal Port 500 100 LH #18 0 Oral 0 30 Tube Feeding 100 Output: Urine 585 495 235 Urethral ([place]) 585 495 235 Other: # Bowel Movements 0 0 0 - Physical Exam Physical Exam Limitations: Positive for: Altered Mental Status Head: Positive for: Atraumatic, Normocephalic. Negative for: Abrasion, Laceration Pupils: Positive for: PERRL Extroacular Muscles: Positive for: EOMI Conjunctiva: Positive for: Normal Mouth: Positive for: Dry Pharnyx: Positive for: Normal Respiratory/Chest: Positive for: Good Air Exchange, Decreased Breath Sounds. Negative for: Respiratory Distress, Accessory Muscle Use Cardiovascular: Positive for: Irregular Rhythm. Negative for: Murmurs Abdomen: Positive for: Normal Bowel Sounds, Other (morbidly obese). Negative for: Tenderness (no grimacing present), Peritoneal Signs Upper Extremity: Positive for: Normal Inspection, Capillary Refill < 2s. Negative for: Cyanosis, Edema Lower Extremity: Positive for: Edema (Trace, non-pitting) Neurological: Positive for: Other (Pt oriented only to person, aware in hospital , unaware context) Skin: Positive for: Warm, Dry Psychiatric: Positive for: Alert, Oriented x 3 - Medications Active Medications: Active Medications Generic Name Dose Route Start Last Admin Trade Name Freq PRN Reason Stop Dose Admin Amiodarone HCl 200 mg 10/05/16 10:00 10/05/16 10:30 Cordarone PO 200 mg BID NIK Administration Apixaban 5 mg 10/04/16 20:30 10/05/16 10:26 Eliquis PO 5 mg BID NIK Administration Aspirin 81 mg 10/05/16 10:15 10/05/16 10:36 Aspirin Chewable PO 81 mg DAILY NIK Administration Budesonide 0.5 mg 10/04/16 08:00 10/05/16 07:48 Pulmicort Respules IH 0.5 mg RQ12 NIK Administration Calcitonin Mcmillan 200 iu 10/04/16 10:00 10/05/16 10:24 Miacalcin NS 1 spr DAILY NIK Administration Diltiazem HCl 60 mg 10/05/16 10:00 10/05/16 10:27 Cardizem PO 60 mg Q6 NIK Administration Furosemide 20 mg 10/04/16 18:00 10/04/16 18:11 Lasix IVP 20 mg BID NIK Administration Sodium Chloride 1,000 mls @ 150 mls/hr 10/04/16 04:15 10/05/16 07:14 Sodium Chloride 0.9% IV Not Given .Q6H40M NIK Aztreonam 1 gm/ Sodium 100 mls @ 200 mls/hr 10/04/16 18:00 10/05/16 05:09 Chloride IVPB 200 mls/hr Q12H NIK Administration Insulin Human Regular 0 unit 10/04/16 18:00 10/05/16 05:11 Novolin R SC Not Given Q6H [facility] Protocol Lactobacillus Acidophilus 1 cap 10/04/16 10:00 10/05/16 10:26 Bacid Acidophilus PO 1 cap DAILY NIK Administration Pantoprazole Sodium 40 mg 10/04/16 16:45 10/04/16 17:15 Protonix Inj IVP 40 mg DAILY NIK Administration Prasugrel 10 mg 10/04/16 10:00 10/05/16 10:27 Effient PO 10 mg DAILY NIK Administration Sotalol HCl 80 mg 10/04/16 10:00 10/05/16 10:28 Betapace PO 80 mg BID NIK Administration - Patient Studies Lab Studies: Microbiology Studies 10/04/16 Unknown Urine Culture - Preliminary Urine,[place] Gram Negative Solo Lab Studies 10/05/16 10/05/16 10/04/16 Range/Units 06:15 05:08 23:54 WBC 12.3 H (4.8-10.8) K/uL RBC 4.43 (3.80-5.20) Mil/uL Hgb 11.7 (11.0-16.0) g/dL Hct 37.7 (34.0-47.0) % MCV 85.1 (81.0-99.0) fL MCH 26.4 L (27.0-31.0) pg MCHC 31.0 L (33.0-37.0) g/dL RDW 18.4 H (11.5-14.5) % Plt Count 178 (130-400) K/uL MPV 9.5 (7.2-11.7) fL Neut % (Auto) (50.0-75.0) % Lymph % (Auto) (20.0-40.0) % [place] % (Auto) (0.0-10.0) % Eos % (Auto) (0.0-4.0) % Baso % (Auto) (0.0-2.0) % Neut # (1.8-7.0) K/uL Lymph # (1.0-4.3) K/uL [place] # (0.0-0.8) K/uL Eos # (0.0-0.7) K/uL Baso # (0.0-0.2) K/uL APTT (21-34) SECONDS Sodium 145 (132-148) mmol/L Potassium 3.6 (3.6-5.2) mmol/L Chloride 106 (98-107) mmol/L Carbon Dioxide 28 (22-30) mmol/L Anion Gap 15 (10-20) BUN 45 H (7-17) mg/dL Creatinine 1.6 H (0.7-1.2) MG/DL Est GFR ( Amer) 38 Est GFR (Non-Af Amer) 32 POC Glucose (mg/dL) 121 H 79 (65-110) mg/dL Random Glucose 71 (65-105) mg/dL Calcium 14.4 H* (8.6-10.4) mg/dl Phosphorus 4.4 (2.5-4.5) mg/dL Magnesium 2.2 (1.6-2.3) mg/dL Total Bilirubin 0.7 (0.2-1.3) mg/dL AST 67 H (14-36) U/L ALT 107 H (9-52) U/L Alkaline Phosphatase 118 (38-126) U/L Troponin I (0.00-0.120) ng/mL Total Protein 5.9 L (6.3-8.3) g/dL Albumin 2.9 L (3.5-5.0) g/dL Globulin 2.9 (2.2-3.9) gm/dL Albumin/Globulin Ratio 1.0 (1.0-2.1) Procalcitonin (0.19-0.49) NG/ML Random Vancomycin 10.35 ug/mL 10/04/16 10/04/16 10/04/16 Range/Units 18:12 17:33 15:34 WBC 12.4 H (4.8-10.8) K/uL RBC 4.72 (3.80-5.20) Mil/uL Hgb 12.4 (11.0-16.0) g/dL Hct 40.1 (34.0-47.0) % MCV 84.9 (81.0-99.0) fL MCH 26.3 L (27.0-31.0) pg MCHC 31.0 L (33.0-37.0) g/dL RDW 17.9 H (11.5-14.5) % Plt Count 212 (130-400) K/uL MPV 9.9 (7.2-11.7) fL Neut % (Auto) 56.5 (50.0-75.0) % Lymph % (Auto) 29.4 (20.0-40.0) % [place] % (Auto) 13.0 H (0.0-10.0) % Eos % (Auto) 0.1 (0.0-4.0) % Baso % (Auto) 1.0 (0.0-2.0) % Neut # 7.0 (1.8-7.0) K/uL Lymph # 3.6 (1.0-4.3) K/uL [place] # 1.6 H (0.0-0.8) K/uL Eos # 0.0 (0.0-0.7) K/uL Baso # 0.1 (0.0-0.2) K/uL APTT 36 H D (21-34) SECONDS Sodium 142 (132-148) mmol/L Potassium 3.8 (3.6-5.2) mmol/L Chloride 102 (98-107) mmol/L Carbon Dioxide 25 (22-30) mmol/L Anion Gap 19 (10-20) BUN 51 H (7-17) mg/dL Creatinine 1.9 H (0.7-1.2) MG/DL Est GFR ( Amer) 31 Est GFR (Non-Af Amer) 26 POC Glucose (mg/dL) 80 (65-110) mg/dL Random Glucose 86 (65-105) mg/dL Calcium 13.9 H* (8.6-10.4) mg/dl Phosphorus 4.6 H (2.5-4.5) mg/dL Magnesium 2.3 (1.6-2.3) mg/dL Total Bilirubin 1.3 (0.2-1.3) mg/dL AST 65 H (14-36) U/L ALT 119 H (9-52) U/L Alkaline Phosphatase 120 (38-126) U/L Troponin I 0.4970 H* (0.00-0.120) ng/mL Total Protein 6.2 L (6.3-8.3) g/dL Albumin 3.1 L (3.5-5.0) g/dL Globulin 3.1 (2.2-3.9) gm/dL Albumin/Globulin Ratio 1.0 (1.0-2.1) Procalcitonin 0.37 (0.19-0.49) NG/ML Random Vancomycin ug/mL 10/04/16 Range/Units 11:31 WBC (4.8-10.8) K/uL RBC (3.80-5.20) Mil/uL Hgb (11.0-16.0) g/dL Hct (34.0-47.0) % MCV (81.0-99.0) fL MCH (27.0-31.0) pg MCHC (33.0-37.0) g/dL RDW (11.5-14.5) % Plt Count (130-400) K/uL MPV (7.2-11.7) fL Neut % (Auto) (50.0-75.0) % Lymph % (Auto) (20.0-40.0) % [place] % (Auto) (0.0-10.0) % Eos % (Auto) (0.0-4.0) % Baso % (Auto) (0.0-2.0) % Neut # (1.8-7.0) K/uL Lymph # (1.0-4.3) K/uL [place] # (0.0-0.8) K/uL Eos # (0.0-0.7) K/uL Baso # (0.0-0.2) K/uL APTT (21-34) SECONDS Sodium (132-148) mmol/L Potassium (3.6-5.2) mmol/L Chloride (98-107) mmol/L Carbon Dioxide (22-30) mmol/L Anion Gap (10-20) BUN (7-17) mg/dL Creatinine (0.7-1.2) MG/DL Est GFR ( Amer) Est GFR (Non-Af Amer) POC Glucose (mg/dL) 86 (65-110) mg/dL Random Glucose (65-105) mg/dL Calcium (8.6-10.4) mg/dl Phosphorus (2.5-4.5) mg/dL Magnesium (1.6-2.3) mg/dL Total Bilirubin (0.2-1.3) mg/dL AST (14-36) U/L ALT (9-52) U/L Alkaline Phosphatase (38-126) U/L Troponin I (0.00-0.120) ng/mL Total Protein (6.3-8.3) g/dL Albumin (3.5-5.0) g/dL Globulin (2.2-3.9) gm/dL Albumin/Globulin Ratio (1.0-2.1) Procalcitonin (0.19-0.49) NG/ML Random Vancomycin ug/mL Laboratory Results - last 24 hr 10/04/16 10/04/16 10/04/16 11:31 15:34 17:33 WBC 12.4 H RBC 4.72 Hgb 12.4 Hct 40.1 MCV 84.9 MCH 26.3 L MCHC 31.0 L RDW 17.9 H Plt Count 212 MPV 9.9 Neut % (Auto) 56.5 Lymph % (Auto) 29.4 [place] % (Auto) 13.0 H Eos % (Auto) 0.1 Baso % (Auto) 1.0 Neut # 7.0 Lymph # 3.6 [place] # 1.6 H Eos # 0.0 Baso # 0.1 APTT 36 H D Sodium 142 Potassium 3.8 Chloride 102 Carbon Dioxide 25 Anion Gap 19 BUN 51 H Creatinine 1.9 H Est GFR ( Amer) 31 Est GFR (Non-Af Amer) 26 POC Glucose (mg/dL) 86 Random Glucose 86 Calcium 13.9 H* Phosphorus 4.6 H Magnesium 2.3 Total Bilirubin 1.3 AST 65 H ALT 119 H Alkaline Phosphatase 120 Troponin I 0.4970 H* Total Protein 6.2 L Albumin 3.1 L Globulin 3.1 Albumin/Globulin Ratio 1.0 Procalcitonin 0.37 Random Vancomycin 10/04/16 10/04/16 10/05/16 18:12 23:54 05:08 WBC RBC Hgb Hct MCV MCH MCHC RDW Plt Count MPV Neut % (Auto) Lymph % (Auto) [place] % (Auto) Eos % (Auto) Baso % (Auto) Neut # Lymph # [place] # Eos # Baso # APTT Sodium Potassium Chloride Carbon Dioxide Anion Gap BUN Creatinine Est GFR ( Amer) Est GFR (Non-Af Amer) POC Glucose (mg/dL) 80 79 121 H Random Glucose Calcium Phosphorus Magnesium Total Bilirubin AST ALT Alkaline Phosphatase Troponin I Total Protein Albumin Globulin Albumin/Globulin Ratio Procalcitonin Random Vancomycin 10/05/16 06:15 WBC 12.3 H RBC 4.43 Hgb 11.7 Hct 37.7 MCV 85.1 MCH 26.4 L MCHC 31.0 L RDW 18.4 H Plt Count 178 MPV 9.5 Neut % (Auto) Lymph % (Auto) [place] % (Auto) Eos % (Auto) Baso % (Auto) Neut # Lymph # [place] # Eos # Baso # APTT Sodium 145 Potassium 3.6 Chloride 106 Carbon Dioxide 28 Anion Gap 15 BUN 45 H Creatinine 1.6 H Est GFR ( Amer) 38 Est GFR (Non-Af Amer) 32 POC Glucose (mg/dL) Random Glucose 71 Calcium 14.4 H* Phosphorus 4.4 Magnesium 2.2 Total Bilirubin 0.7 AST 67 H ALT 107 H Alkaline Phosphatase 118 Troponin I Total Protein 5.9 L Albumin 2.9 L Globulin 2.9 Albumin/Globulin Ratio 1.0 Procalcitonin Random Vancomycin 10.35 Fingerstick Blood Sugar Results: 79 Review of Systems - Review of Systems Systems not reviewed;Unavailable: Altered Mental Status Assessment/Plan - Assessment and Plan (Free Text) Assessment: 71 F female with PMHx significant for uterine CA, mets to left breast/ bone, hypercalcemia, DM CHF, Afib, HTN, HLD, DVT/PE, who is s/p cardiac cath. Cath showed no coronary blockages. CT head showed questionable mets to brain. Plan: Neuro: Altered mental status - son reports as of noon 10/03 pt was AAO x 3 Now pt oriented to person only, unaware of context of admission Neurochecks q6H CT head (10/04/16): Questionable mets to brain (wet read, f/u official read) Cardio: Consulted Dr Tenorio - Continue Amiodarone, Eliquis, Effient, Cardizem, Betaspace Consulted Dr. Francois - will interrogate device and reprogram if needed Cardiac Cath, by Dr. Rocha, showed no coronary blockages Troponin I, II, III - elevated but downtrending (0.361, 0.842, 0.4970) EKG: (field: aflutter - 150mg amiodarone; cardioverted twice). EKG in ED: new LBBB compared to prior. Recently hospitalization at [facility] (08/2016). Cardiac catheterization with bare metal stent placement on 09/01/16. Hx of Afib - CHADS2 score: 3 pts (CHF, HTN, DM; High risk ~6% risk of event per year if no coumadin) - HAS-BLED score: 2pts (Age >65, Antiplatelet agents, Risk of major bleed ~ 5.8% ) Hx of NSTEMIs per PMD Dr. Polanco AICD in left chest BNP: 5010 Eliquis 5mg PO BID Effient 10mg PO daily ASA 81mg PO Daily Amiodarone 200mg PO BID Cardizem 60mg PO q6h Pulm: Pt on 7L O2; O2 sat 95% Pulmicort capsules 0.5 mg IH RQ12 Endo: Diabetes Sliding scale - Novolin R Accucheck q6H Maintain Euglycemia GI: NG tube placed - start tube feedings Diabetisource Transaminitis: LFTs/Alk phos, elevated but stable - US abdomen (10/05/16): B/l renal cysts. 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 No hydro or obstructing calculus. Echogenic liver. Incidental small right pleural effusion (see full report) : UTI: UA (10/04/16) 2+ protein, 3+ LE, 1619 WBC, RBC 236, WBC clumps Many, Amorphous sediment, Bacteria Moderate Monitor I/Os Renal: Acute Renal failure Dr. Cabrera consulted - NS @ 150 mls/hr - continue IVF and Lasix BUN/Cr: 51/1.9 today, improved from presentation Monitor I/Os Daily CMP Hem/Onc: Pt with hx of uterine CA w. mets to Left breast, bone, lung - Pt recently had biopsy for breast mass - Breast CA: hormone positive, her [address] Schultz consulted Hypercalcemia: 14.9 @ presentation, 14.4 this AM - Continue Pamidronate - Continue Calcitonin 200 iu NS Daily Leukocytosis: WBC 12.3, stable but elevated Dr. Mack, ID, consulted - Continue Azactam 1 gm IV Q12H (renally dosed) - Vancomycin 1 gm IV ONE TIME DOSE - Random Vanco level: 10.35 H&H stable - Type and screen Abnormal Coag - improved today PT 11.9, INR 1.1, PTT 26 Daily CBC ID: Leukocytosis: WBC: 12.4 on admission, 12.[address] Mack, ID, consulted - Start Azactam 1 gm IV Q12H (renally dosed) - Vancomycin 1 gm IV ONE TIME DOSE - Random Vanco level 10.35 - urine cx: Gram negative solo - f/u blood cx Daily CBC Prophylaxis: GI: Protonix 40mg IV Daily DVT: contraindicated due to previous placement of IVC filter Palliative consult: POLST form signed DNR/DNI <Bertin Woodruff - Last Filed: 10/05/16 18:49> CCU Objective - Vital Signs / Intake & Output Vital Signs (Last 4 hours): Vital Signs Temp Pulse Resp BP Pulse Ox 10/05/16 18:00 68 33 H 96 10/05/16 17:43 115/56 L 10/05/16 17:38 115/56 L 10/05/16 17:12 65 33 H 129/60 95 10/05/16 17:00 69 30 H 96 10/05/16 16:49 67 36 H 95 10/05/16 16:12 63 32 H 128/52 L 97 10/05/16 16:00 97.6 F 62 32 H 95 10/05/16 15:49 64 32 H 97 10/05/16 15:13 65 19 132/49 L 95 10/05/16 15:00 65 27 H 94 L Intake and Output (Last 8hrs): Intake & Output 10/05/16 10/05/16 10/05/16 06:59 14:59 22:59 Intake Total 1416.9 1510 870 Output Total 495 395 400 Balance 921.9 1115 470 Weight 233 lb 3.2 oz Intake: Intake, IV Amount 1416.9 1200 600 Left Medial Port Internal 116.9 Jugular Left Proximal Port 1200 1200 600 Internal Jugular Left Distal Port 100 Oral 280 150 Tube Feeding 30 120 Output: Urine 495 395 400 Urethral ([place]) 495 395 400 Other: # Bowel Movements 0 0 0 - Medications Active Medications: Active Medications Generic Name Dose Route Start Last Admin Trade Name Freq PRN Reason Stop Dose Admin Amiodarone HCl 200 mg 10/05/16 10:00 10/05/16 17:44 Cordarone PO 200 mg BID NIK Administration Apixaban 5 mg 10/04/16 20:30 10/05/16 17:45 Eliquis PO 5 mg BID NIK Administration Aspirin 81 mg 10/05/16 10:15 10/05/16 10:36 Aspirin Chewable PO 81 mg DAILY NIK Administration Budesonide 0.5 mg 10/04/16 08:00 10/05/16 07:48 Pulmicort Respules IH 0.5 mg RQ12 NIK Administration Calcitonin Mcmillan 200 iu 10/04/16 10:00 10/05/16 10:24 Miacalcin NS 1 spr DAILY NIK Administration Diltiazem HCl 60 mg 10/05/16 10:00 10/05/16 17:44 Cardizem PO 60 mg Q6 NIK Administration Furosemide 40 mg 10/05/16 18:19 Lasix IVP BID NIK Sodium Chloride 1,000 mls @ 150 mls/hr 10/04/16 04:15 10/05/16 13:38 Sodium Chloride 0.9% IV Not Given .Q6H40M NIK Aztreonam 1 gm/ Sodium 100 mls @ 200 mls/hr 10/04/16 18:00 10/05/16 17:43 Chloride IVPB 200 mls/hr Q12H NIK Administration Insulin Human Regular 0 unit 10/04/16 18:00 10/05/16 18:09 Novolin R SC Not Given Q6H [facility] Protocol Lactobacillus Acidophilus 1 cap 10/04/16 10:00 10/05/16 10:26 Bacid Acidophilus PO 1 cap DAILY NIK Administration Pantoprazole Sodium 40 mg 10/04/16 16:45 10/05/16 09:55 Protonix Inj IVP 40 mg DAILY NIK Administration Prasugrel 10 mg 10/04/16 10:00 10/05/16 10:27 Effient PO 10 mg DAILY NIK Administration Sotalol HCl 80 mg 10/04/16 10:00 10/05/16 17:44 Betapace PO 80 mg BID NIK Administration - Patient Studies Lab Studies: Microbiology Studies 10/04/16 10:45 Blood Culture - Preliminary Blood NO GROWTH AFTER 24 HOURS 10/04/16 Unknown Urine Culture - Preliminary Urine,[place] Gram Negative Solo Lab Studies 10/05/16 10/05/16 10/05/16 Range/Units 17:47 12:23 11:58 WBC (4.8-10.8) K/uL RBC (3.80-5.20) Mil/uL Hgb (11.0-16.0) g/dL Hct (34.0-47.0) % MCV (81.0-99.0) fL MCH (27.0-31.0) pg MCHC (33.0-37.0) g/dL RDW (11.5-14.5) % Plt Count (130-400) K/uL MPV (7.2-11.7) fL Sodium (132-148) mmol/L Potassium (3.6-5.2) mmol/L Chloride (98-107) mmol/L Carbon Dioxide (22-30) mmol/L Anion Gap (10-20) BUN (7-17) mg/dL Creatinine (0.7-1.2) MG/DL Est GFR ( Amer) Est GFR (Non-Af Amer) POC Glucose (mg/dL) 76 213 H 65 (65-110) mg/dL Random Glucose (65-105) mg/dL Calcium (8.6-10.4) mg/dl Phosphorus (2.5-4.5) mg/dL Magnesium (1.6-2.3) mg/dL Total Bilirubin (0.2-1.3) mg/dL AST (14-36) U/L ALT (9-52) U/L Alkaline Phosphatase (38-126) U/L Total Protein (6.3-8.3) g/dL Albumin (3.5-5.0) g/dL Globulin (2.2-3.9) gm/dL Albumin/Globulin Ratio (1.0-2.1) Random Vancomycin ug/mL 10/05/16 10/05/16 10/04/16 Range/Units 06:15 05:08 23:54 WBC 12.3 H (4.8-10.8) K/uL RBC 4.43 (3.80-5.20) Mil/uL Hgb 11.7 (11.0-16.0) g/dL Hct 37.7 (34.0-47.0) % MCV 85.1 (81.0-99.0) fL MCH 26.4 L (27.0-31.0) pg MCHC 31.0 L (33.0-37.0) g/dL RDW 18.4 H (11.5-14.5) % Plt Count 178 (130-400) K/uL MPV 9.5 (7.2-11.7) fL Sodium 145 (132-148) mmol/L Potassium 3.6 (3.6-5.2) mmol/L Chloride 106 (98-107) mmol/L Carbon Dioxide 28 (22-30) mmol/L Anion Gap 15 (10-20) BUN 45 H (7-17) mg/dL Creatinine 1.6 H (0.7-1.2) MG/DL Est GFR ( Amer) 38 Est GFR (Non-Af Amer) 32 POC Glucose (mg/dL) 121 H 79 (65-110) mg/dL Random Glucose 71 (65-105) mg/dL Calcium 14.4 H* (8.6-10.4) mg/dl Phosphorus 4.4 (2.5-4.5) mg/dL Magnesium 2.2 (1.6-2.3) mg/dL Total Bilirubin 0.7 (0.2-1.3) mg/dL AST 67 H (14-36) U/L ALT 107 H (9-52) U/L Alkaline Phosphatase 118 (38-126) U/L Total Protein 5.9 L (6.3-8.3) g/dL Albumin 2.9 L (3.5-5.0) g/dL Globulin 2.9 (2.2-3.9) gm/dL Albumin/Globulin Ratio 1.0 (1.0-2.1) Random Vancomycin 10.35 ug/mL Laboratory Results - last 24 hr 10/04/16 10/05/16 10/05/16 23:54 05:08 06:15 WBC 12.3 H RBC 4.43 Hgb 11.7 Hct 37.7 MCV 85.1 MCH 26.4 L MCHC 31.0 L RDW 18.4 H Plt Count 178 MPV 9.5 Sodium 145 Potassium 3.6 Chloride 106 Carbon Dioxide 28 Anion Gap 15 BUN 45 H Creatinine 1.6 H Est GFR ( Amer) 38 Est GFR (Non-Af Amer) 32 POC Glucose (mg/dL) 79 121 H Random Glucose 71 Calcium 14.4 H* Phosphorus 4.4 Magnesium 2.2 Total Bilirubin 0.7 AST 67 H ALT 107 H Alkaline Phosphatase 118 Total Protein 5.9 L Albumin 2.9 L Globulin 2.9 Albumin/Globulin Ratio 1.0 Random Vancomycin 10.35 10/05/16 10/05/16 10/05/16 11:58 12:23 17:47 WBC RBC Hgb Hct MCV MCH MCHC RDW Plt Count MPV Sodium Potassium Chloride Carbon Dioxide Anion Gap BUN Creatinine Est GFR ( Amer) Est GFR (Non-Af Amer) POC Glucose (mg/dL) 65 213 H 76 Random Glucose Calcium Phosphorus Magnesium Total Bilirubin AST ALT Alkaline Phosphatase Total Protein Albumin Globulin Albumin/Globulin Ratio Random Vancomycin Attending/Attestation - Attestation I have personally seen and examined this patient.: Yes I have fully participated in the care of the patient.: Yes I have reviewed all pertinent clinical information: Yes Notes (Text): 10/05/16 18:48 Patient seen and examined in the intensive care unit. Case discussed with staff in the morning rounds. family signed DNR/DNI Continue present treatment for now
[2016-10-05] MEDS ORDERED: Dextrose 50% SYRINGE Inj (50 ml) IV ONE (11:59)
[2016-10-05] MEDS ORDERED: Dextrose 50% SYRINGE Inj (50 ml) ONE (12:06)
--- NOTE | 2016-10-05 12:15 | CP.PCM.PN ---
Subjective - Date & Time of Evaluation Date of Evaluation: 10/05/16 Time of Evaluation: 12:13 - Subjective Subjective: pt seen and examined, follow up consult is dictated #[id number] 1. uti 2. jenny 3. hypercalcemia 4. cad s/p cath 5. AMS, improving 6. Sterrett static breast ca s/p Aredia 60 mg ivpb continue ivf NS and lasix continue iv abx Objective - Vital Signs/Intake and Output Vital Signs (last 24 hours): Temp Pulse Resp BP Pulse Ox 97.7 F 70 28 H 135/61 95 10/05/16 08:00 10/05/16 10:00 10/05/16 10:00 10/05/16 09:58 10/05/16 10:00 Intake and Output: 10/05/16 10/05/16 06:59 18:59 Intake Total 2183.7 630 Output Total 810 235 Balance 1373.7 395 - Medications Medications: Current Medications Amiodarone HCl (Cordarone) 200 mg PO BID [facility] Last Admin: 10/05/16 10:30 Dose: 200 mg Apixaban (Eliquis) 5 mg PO BID [facility] Last Admin: 10/05/16 10:26 Dose: 5 mg Aspirin (Aspirin Chewable) 81 mg PO DAILY [facility] Last Admin: 10/05/16 10:36 Dose: 81 mg Budesonide (Pulmicort Respules) 0.5 mg IH RQ12 [facility] Last Admin: 10/05/16 07:48 Dose: 0.5 mg Calcitonin [place] (Miacalcin) 200 iu NS DAILY [facility] Last Admin: 10/05/16 10:24 Dose: 1 spr Diltiazem HCl (Cardizem) 60 mg PO Q6 [facility] Last Admin: 10/05/16 10:27 Dose: 60 mg Furosemide (Lasix) 20 mg IVP BID [facility] Last Admin: 10/05/16 09:55 Dose: 20 mg Sodium Chloride (Sodium Chloride 0.9%) 1,000 mls @ 150 mls/hr IV .Q6H40M [facility] Last Admin: 10/05/16 07:14 Dose: Not Given Aztreonam 1 gm/ Sodium (Chloride) 100 mls @ 200 mls/hr IVPB Q12H [facility] Last Admin: 10/05/16 05:09 Dose: 200 mls/hr Insulin Human Regular (Novolin R) 0 unit SC Q6H [facility] PRN Reason: Protocol Last Admin: 10/05/16 05:11 Dose: Not Given Lactobacillus Acidophilus (Bacid Acidophilus) 1 cap PO DAILY [facility] Last Admin: 10/05/16 10:26 Dose: 1 cap Pantoprazole Sodium (Protonix Inj) 40 mg IVP DAILY [facility] Last Admin: 10/05/16 09:55 Dose: 40 mg Prasugrel (Effient) 10 mg PO DAILY [facility] Last Admin: 10/05/16 10:27 Dose: 10 mg Sotalol HCl (Betapace) 80 mg PO BID [facility] Last Admin: 10/05/16 10:28 Dose: 80 mg - Labs Labs: 10/05/16 06:15 10/05/16 06:15 PT 11.9 SECONDS (9.7-12.2) 10/04/16 08:26 INR 1.1 10/04/16 08:26 APTT 36 SECONDS (21-34) H D 10/04/16 17:33
--- NOTE | 2016-10-05 12:40 | CP.PCM.CON ---
History of Present Illness - History of Present Illness History of Present Illness: Palliative consult requested by Rosaline Lilly reason; Goals of care, metastatic disease Patient is a 71 yo female admitted from [place] with AMS and unsteady BP. Cardioversion was performed X 2 and Amiodorone was given on the field. Patient was admitted to the hospital for further treatment. Hypercalcemia was detected, Ca > 15, and Calcitonin Tx initiated. troponin was elevated at 0.4970, cardioloy consult called.The Ct head for suspension of brain mets was done and result is pending. Patient is S/P Code heart admitted to ICU. 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 Hx: , lives at home , has two sons, admitted from [facility]. Hx: unknown Review of Systems - Review of Systems Systems not reviewed;Unavailable: Altered Mental Status Past Patient History - Infectious Disease Hx of Infectious Diseases: None - Tetanus Immunizations Tetanus Immunization: Up to Date - Past Social History Smoking Status: Former Smoker Alcohol: None Drugs: Denies - CARDIAC Hx Atrial Fibrillation: Yes Hx Cardia Arrhythmia: Yes Hx Congestive Heart Failure: Yes Hx Hypercholesterolemia: Yes Hx Hypertension: Yes Hx Pacemaker: Yes (10 yrs ago medtronic) Hx Peripheral Edema: Yes (ble +1) - PULMONARY Hx Respiratory Disorders: Yes (PE) - NEUROLOGICAL Hx Neurological Disorder: No - HEENT Hx HEENT Problems: No - RENAL Hx Chronic Kidney Disease: No - ENDOCRINE/METABOLIC Hx Endocrine Disorders: No - HEMATOLOGICAL/ONCOLOGICAL Hx Blood Transfusions: No Hx Blood Transfusion Reaction: No Other/Comment: LEFT BREAST CA - INTEGUMENTARY Hx Dermatological Problems: No - MUSCULOSKELETAL/RHEUMATOLOGICAL Hx Arthritis: Yes (knees) - GASTROINTESTINAL Hx Gastrointestinal Disorders: No Hx Liver Failure: Yes - GENITOURINARY/GYNECOLOGICAL Hx Genitourinary Disorders: No Hx Uterine Cancer: Yes Other/Comment: LEFT BREAST CA ,, - PSYCHIATRIC Hx Depression: No Hx Substance Use: No - SURGICAL HISTORY Hx Surgeries: Yes - ANESTHESIA Hx Anesthesia: Yes Hx Anesthesia Reactions: Yes Hx Malignant Hyperthermia: No Meds Allergies/Adverse Reactions: Allergies Allergy/AdvReac Type Severity Reaction Status Date / Time FISH Allergy Severe ANAPHYLAXIS Verified 10/04/16 01:55 Penicillins Allergy ANAPHYLAXIS Verified 10/04/16 01:55 - Medications Medications: Current Medications Amiodarone HCl (Cordarone) 200 mg PO BID [facility] Last Admin: 10/05/16 10:30 Dose: 200 mg Apixaban (Eliquis) 5 mg PO BID [facility] Last Admin: 10/05/16 10:26 Dose: 5 mg Aspirin (Aspirin Chewable) 81 mg PO DAILY [facility] Last Admin: 10/05/16 10:36 Dose: 81 mg Budesonide (Pulmicort Respules) 0.5 mg IH RQ12 [facility] Last Admin: 10/05/16 07:48 Dose: 0.5 mg Calcitonin [place] (Miacalcin) 200 iu NS DAILY [facility] Last Admin: 10/05/16 10:24 Dose: 1 spr Diltiazem HCl (Cardizem) 60 mg PO Q6 [facility] Last Admin: 10/05/16 12:16 Dose: 60 mg Furosemide (Lasix) 20 mg IVP BID [facility] Last Admin: 10/05/16 09:55 Dose: 20 mg Sodium Chloride (Sodium Chloride 0.9%) 1,000 mls @ 150 mls/hr IV .Q6H40M [facility] Last Admin: 10/05/16 12:17 Dose: 150 mls/hr Aztreonam 1 gm/ Sodium (Chloride) 100 mls @ 200 mls/hr IVPB Q12H [facility] Last Admin: 10/05/16 05:09 Dose: 200 mls/hr Insulin Human Regular (Novolin R) 0 unit SC Q6H [facility] PRN Reason: Protocol Last Admin: 10/05/16 12:13 Dose: Not Given Lactobacillus Acidophilus (Bacid Acidophilus) 1 cap PO DAILY [facility] Last Admin: 10/05/16 10:26 Dose: 1 cap Pantoprazole Sodium (Protonix Inj) 40 mg IVP DAILY [facility] Last Admin: 10/05/16 09:55 Dose: 40 mg Prasugrel (Effient) 10 mg PO DAILY [facility] Last Admin: 10/05/16 10:27 Dose: 10 mg Sotalol HCl (Betapace) 80 mg PO BID [facility] Last Admin: 10/05/16 10:28 Dose: 80 mg Physical Exam - Constitutional Appears: Chronically Ill - Head Exam Head Exam: ATRAUMATIC - Eye Exam Eye Exam: Normal appearance Pupil Exam: NORMAL ACCOMODATION - ENT Exam ENT Exam: Mucous Membranes Dry - Neck Exam Neck exam: Positive for: Normal Inspection Additional comments: NGT, off suction - Respiratory Exam Respiratory Exam: Decreased Breath Sounds - Cardiovascular Exam Cardiovascular Exam: Tachycardia - GI/Abdominal Exam GI & Abdominal Exam: Normal Bowel Sounds - Rectal Exam Rectal Exam: Deferred - Exam Additional comments: [place] - Extremities Exam Extremities exam: Positive for: normal inspection - Back Exam Back exam: NORMAL INSPECTION - Neurological Exam Neurological exam: Alert, Altered - Psychiatric Exam Psychiatric exam: Flat Affect - Skin Skin Exam: Normal Color Results - Vital Signs Recent Vital Signs: Last Vital Signs Temp 97.7 F 10/05/16 08:00 Pulse 70 10/05/16 10:00 Resp 28 H 10/05/16 10:00 BP 135/61 10/05/16 09:58 Pulse Ox 95 10/05/16 10:00 - Labs Result Diagrams: 10/05/16 06:15 10/05/16 06:15 Labs: Laboratory Results - last 24 hr 10/04/16 10/04/16 10/04/16 15:34 17:33 18:12 WBC 12.4 H RBC 4.72 Hgb 12.4 Hct 40.1 MCV 84.9 MCH 26.3 L MCHC 31.0 L RDW 17.9 H Plt Count 212 MPV 9.9 Neut % (Auto) 56.5 Lymph % (Auto) 29.4 [place] % (Auto) 13.0 H Eos % (Auto) 0.1 Baso % (Auto) 1.0 Neut # 7.0 Lymph # 3.6 [place] # 1.6 H Eos # 0.0 Baso # 0.1 APTT 36 H D Sodium 142 Potassium 3.8 Chloride 102 Carbon Dioxide 25 Anion Gap 19 BUN 51 H Creatinine 1.9 H Est GFR ( Amer) 31 Est GFR (Non-Af Amer) 26 POC Glucose (mg/dL) 80 Random Glucose 86 Calcium 13.9 H* Phosphorus 4.6 H Magnesium 2.3 Total Bilirubin 1.3 AST 65 H ALT 119 H Alkaline Phosphatase 120 Troponin I 0.4970 H* Total Protein 6.2 L Albumin 3.1 L Globulin 3.1 Albumin/Globulin Ratio 1.0 Procalcitonin 0.37 Random Vancomycin 10/04/16 10/05/16 10/05/16 23:54 05:08 06:15 WBC 12.3 H RBC 4.43 Hgb 11.7 Hct 37.7 MCV 85.1 MCH 26.4 L MCHC 31.0 L RDW 18.4 H Plt Count 178 MPV 9.5 Neut % (Auto) Lymph % (Auto) [place] % (Auto) Eos % (Auto) Baso % (Auto) Neut # Lymph # [place] # Eos # Baso # APTT Sodium 145 Potassium 3.6 Chloride 106 Carbon Dioxide 28 Anion Gap 15 BUN 45 H Creatinine 1.6 H Est GFR ( Amer) 38 Est GFR (Non-Af Amer) 32 POC Glucose (mg/dL) 79 121 H Random Glucose 71 Calcium 14.4 H* Phosphorus 4.4 Magnesium 2.2 Total Bilirubin 0.7 AST 67 H ALT 107 H Alkaline Phosphatase 118 Troponin I Total Protein 5.9 L Albumin 2.9 L Globulin 2.9 Albumin/Globulin Ratio 1.0 Procalcitonin Random Vancomycin 10.35 10/05/16 11:58 WBC RBC Hgb Hct MCV MCH MCHC RDW Plt Count MPV Neut % (Auto) Lymph % (Auto) [place] % (Auto) Eos % (Auto) Baso % (Auto) Neut # Lymph # [place] # Eos # Baso # APTT Sodium Potassium Chloride Carbon Dioxide Anion Gap BUN Creatinine Est GFR ( Amer) Est GFR (Non-Af Amer) POC Glucose (mg/dL) 65 Random Glucose Calcium Phosphorus Magnesium Total Bilirubin AST ALT Alkaline Phosphatase Troponin I Total Protein Albumin Globulin Albumin/Globulin Ratio Procalcitonin Random Vancomycin Assessment & Plan - Assessment and Plan (Free Text) Plan: Palliative consult. Code status, Full Code. No advance directive on the chart. ROS unobtainable due to AMS. PS 10% I reviewed medical records, all diagnostic studies, examined and interviewed patient in the bed. Interview was limited due to AMS. Case was discussed with Doctor Waggoner and patient's son Sedrick, over the phone. Family meeting was scheduled for 1 pm today. Patient is alert, altered and lethargic. Patient opens her eyes to voice and tries to answer questions. Speech is unclear and slurred. Patient is unable to communicate her needs. Breath sounds are clear. Patient is a mouth breather. Oral mucousa very dry. Patient is tachypnic, RR 28. BP 135/61, HR 70. Patient is on cardiac management; Sotolol, cardizem, cardorone. The hypercalcemia, which is most likely due to bone mets, is treated with Calcitonin. Patient was found with UTI , gram - rods and Azactam IV is on board. BUN and [employer] are elevated. Patient is on IV hydration. NGT is clamped. Impression * This is a very sick lady with complex past medical hx requiring complex decision making * Patient is unable to participate in goals of care discussion due to AMS * Quality of life is very much negatively impacted by the metastatic disease Suggestion * Symptomatic treatment * Quality of life issues and aggressiveness of further treatment will be discussed today with patient's two sons. I will update my notes after the family meeting. Thank you for consulting palliative care.
--- NOTE | 2016-10-05 18:07 | CP.PCM.CON ---
<Sarabjit Ellis - Last Filed: 10/06/16 07:07> History of Present Illness - History of Present Illness History of Present Illness: Cardiology Consultation Note Dr. Francois CC: AMS/Hypotension HPI: This is a 71 year old female with PMH of uterine cancer, left breast tumor , hypercalcemia on sensipar, DM, CHF, A.fib, HTN, HLD, DVT/ PE s/p IVC filter placement, morbid obesity, presenting for cardiac evaluation from group home due to altered mental status and hypotension. Code heart was activated upon arrival to [facility]. Initial EKG by EMS showed a-flutter and pt was given 150mg amiodarone over 10 minutes and was cardioverted twice. Repeat EKG in the ER showed new LBBB compared to prior. Patient was recently hospitalized at [facility] in 08/2016 and had catheterization with bare metal stent placement on 09/01/16. Patient was brought to lab aide with wire mesh knitter Dr. Santana. Non-obstructive coronaries were seen on cath. Patient was given additional 150mg amiodarone in lab aide. Patient awake, but maintains incomprehensible speech. Unknown baseline. PMD: Dr. Morro Polanco PMH: uterine cancer, left breast tumor, hypercalcemia on sensipar, DM, CHF, A.fib, HTN, HLD, DVT/ PE s/p IVC filter placement, morbid obesity PSH: Hysterectomy, oopherectomy, AICD, IVC filter Allergies: Fish, Penicillin (Anaphylaxis) SHx: Quit smoking 40 years ago. Family denies alcohol, drug abuse Family hx: HTN, DM Review of Systems - Review of Systems Systems not reviewed;Unavailable: Altered Mental Status Past Patient History - Infectious Disease Hx of Infectious Diseases: None - Tetanus Immunizations Tetanus Immunization: Up to Date - Past Social History Smoking Status: Former Smoker Alcohol: None Drugs: Denies - CARDIAC Hx Atrial Fibrillation: Yes Hx Cardia Arrhythmia: Yes Hx Congestive Heart Failure: Yes Hx Hypercholesterolemia: Yes Hx Hypertension: Yes Hx Pacemaker: Yes (10 yrs ago medtronic) Hx Peripheral Edema: Yes (ble +1) - PULMONARY Hx Respiratory Disorders: Yes (PE) - NEUROLOGICAL Hx Neurological Disorder: No - HEENT Hx HEENT Problems: No - RENAL Hx Chronic Kidney Disease: No - ENDOCRINE/METABOLIC Hx Endocrine Disorders: No - HEMATOLOGICAL/ONCOLOGICAL Hx Blood Transfusions: No Hx Blood Transfusion Reaction: No Other/Comment: LEFT BREAST CA - INTEGUMENTARY Hx Dermatological Problems: No - MUSCULOSKELETAL/RHEUMATOLOGICAL Hx Arthritis: Yes (knees) - GASTROINTESTINAL Hx Gastrointestinal Disorders: No Hx Liver Failure: Yes - GENITOURINARY/GYNECOLOGICAL Hx Genitourinary Disorders: No Hx Uterine Cancer: Yes Other/Comment: LEFT BREAST CA ,, - PSYCHIATRIC Hx Depression: No Hx Substance Use: No - SURGICAL HISTORY Hx Surgeries: Yes - ANESTHESIA Hx Anesthesia: Yes Hx Anesthesia Reactions: Yes Hx Malignant Hyperthermia: No Meds Allergies/Adverse Reactions: Allergies Allergy/AdvReac Type Severity Reaction Status Date / Time FISH Allergy Severe ANAPHYLAXIS Verified 10/04/16 01:55 Penicillins Allergy ANAPHYLAXIS Verified 10/04/16 01:55 - Medications Medications: Current Medications Amiodarone HCl (Cordarone) 200 mg PO BID [facility] Last Admin: 10/05/16 17:44 Dose: 200 mg Apixaban (Eliquis) 5 mg PO BID [facility] Last Admin: 10/05/16 17:45 Dose: 5 mg Aspirin (Aspirin Chewable) 81 mg PO DAILY [facility] Last Admin: 10/05/16 10:36 Dose: 81 mg Budesonide (Pulmicort Respules) 0.5 mg IH RQ12 [facility] Last Admin: 10/05/16 07:48 Dose: 0.5 mg Calcitonin [place] (Miacalcin) 200 iu NS DAILY [facility] Last Admin: 10/05/16 10:24 Dose: 1 spr Diltiazem HCl (Cardizem) 60 mg PO Q6 [facility] Last Admin: 10/05/16 17:44 Dose: 60 mg Furosemide (Lasix) 20 mg IVP BID [facility] Last Admin: 10/05/16 17:43 Dose: 20 mg Sodium Chloride (Sodium Chloride 0.9%) 1,000 mls @ 150 mls/hr IV .Q6H40M [facility] Last Admin: 10/05/16 13:38 Dose: Not Given Aztreonam 1 gm/ Sodium (Chloride) 100 mls @ 200 mls/hr IVPB Q12H [facility] Last Admin: 10/05/16 17:43 Dose: 200 mls/hr Insulin Human Regular (Novolin R) 0 unit SC Q6H [facility] PRN Reason: Protocol Last Admin: 10/05/16 12:13 Dose: Not Given Lactobacillus Acidophilus (Bacid Acidophilus) 1 cap PO DAILY [facility] Last Admin: 10/05/16 10:26 Dose: 1 cap Pantoprazole Sodium (Protonix Inj) 40 mg IVP DAILY [facility] Last Admin: 10/05/16 09:55 Dose: 40 mg Prasugrel (Effient) 10 mg PO DAILY [facility] Last Admin: 10/05/16 10:27 Dose: 10 mg Sotalol HCl (Betapace) 80 mg PO BID [facility] Last Admin: 10/05/16 17:44 Dose: 80 mg Physical Exam - Constitutional Appears: Confused, Chronically Ill - Head Exam Head Exam: ATRAUMATIC, NORMAL INSPECTION, NORMOCEPHALIC - Eye Exam Eye Exam: EOMI - ENT Exam ENT Exam: Mucous Membranes Moist - Neck Exam Neck exam: Positive for: Normal Inspection. Negative for: Lymphadenopathy - Respiratory Exam Respiratory Exam: Clear to Auscultation Bilateral, NORMAL BREATHING PATTERN. absent: Rhonchi, Wheezes - Cardiovascular Exam Cardiovascular Exam: REGULAR RHYTHM, RRR, +S1, +S2. absent: Diastolic murmur, Systolic Murmur - GI/Abdominal Exam GI & Abdominal Exam: Normal Bowel Sounds, Soft. absent: Tenderness - Extremities Exam Extremities exam: Positive for: normal inspection - Neurological Exam Neurological exam: Alert, Altered - Skin Skin Exam: Dry, Intact, Normal Color, Warm Results - Vital Signs Recent Vital Signs: Last Vital Signs Temp 97.6 F 10/05/16 16:00 Pulse 63 10/05/16 16:12 Resp 32 H 10/05/16 16:12 BP 115/56 L 10/05/16 17:43 Pulse Ox 97 10/05/16 16:12 - Labs Result Diagrams: 10/06/16 06:06 10/06/16 06:06 Labs: Laboratory Results - last 24 hr 10/04/16 10/04/16 10/05/16 18:12 23:54 05:08 WBC RBC Hgb Hct MCV MCH MCHC RDW Plt Count MPV Sodium Potassium Chloride Carbon Dioxide Anion Gap BUN Creatinine Est GFR ( Amer) Est GFR (Non-Af Amer) POC Glucose (mg/dL) 80 79 121 H Random Glucose Calcium Phosphorus Magnesium Total Bilirubin AST ALT Alkaline Phosphatase Total Protein Albumin Globulin Albumin/Globulin Ratio Random Vancomycin 10/05/16 10/05/16 10/05/16 06:15 11:58 12:23 WBC 12.3 H RBC 4.43 Hgb 11.7 Hct 37.7 MCV 85.1 MCH 26.4 L MCHC 31.0 L RDW 18.4 H Plt Count 178 MPV 9.5 Sodium 145 Potassium 3.6 Chloride 106 Carbon Dioxide 28 Anion Gap 15 BUN 45 H Creatinine 1.6 H Est GFR ( Amer) 38 Est GFR (Non-Af Amer) 32 POC Glucose (mg/dL) 65 213 H Random Glucose 71 Calcium 14.4 H* Phosphorus 4.4 Magnesium 2.2 Total Bilirubin 0.7 AST 67 H ALT 107 H Alkaline Phosphatase 118 Total Protein 5.9 L Albumin 2.9 L Globulin 2.9 Albumin/Globulin Ratio 1.0 Random Vancomycin 10.35 10/05/16 17:47 WBC RBC Hgb Hct MCV MCH MCHC RDW Plt Count MPV Sodium Potassium Chloride Carbon Dioxide Anion Gap BUN Creatinine Est GFR ( Amer) Est GFR (Non-Af Amer) POC Glucose (mg/dL) 76 Random Glucose Calcium Phosphorus Magnesium Total Bilirubin AST ALT Alkaline Phosphatase Total Protein Albumin Globulin Albumin/Globulin Ratio Random Vancomycin Assessment & Plan (1) Congestive heart failure Status: h (2) Rapid atrial fibrillation Status: h (3) Primary hyperparathyroidism Status: h (4) AICD (automatic cardioverter/defibrillator) present Status: h - Assessment and Plan (Free Text) Plan: 1.) A-fib - ICD present- will interrogate device - continue amiodarone 200mg po bid - continue eliquis 5mg po bid - contoinue aspirin 81mg po daily - continue cardizem 60mg po q6 - continue lasix 20mg IV bid - continue prasugrel 10mg po daily - maintain supine posture for the first 4 hours s/p cath - cath site inspection q2 - hemodynamically stable currently - medical management per the intensive care team Case discussed with Dr. Alessandro Ellis PGY1 - Date & Time Date: 10/05/16 Time: 18:09 <Theo Francois - Last Filed: 11/08/16 10:25> Results - Vital Signs Recent Vital Signs: Last Vital Signs Temp 97.9 F 10/06/16 16:00 Pulse 88 10/06/16 19:02 Resp 42 H 10/06/16 19:02 BP 93/61 L 10/06/16 19:02 Pulse Ox 94 L 10/06/16 15:35 - Labs Result Diagrams: 10/06/16 06:06 10/06/16 06:06 Attending/Attestation - Attestation I have personally seen and examined this patient.: Yes I have fully participated in the care of the patient.: Yes I have reviewed all pertinent clinical information: Yes Notes (Text): 11/08/16 10:25 Pt will need icd interrogated continue amiodorone
--- NOTE | 2016-10-05 18:42 | PN ---
DATE: 10/05/2016 SUBJECTIVE: The patient is lethargic and tachypneic and she has converted to sinus rhythm. PHYSICAL EXAMINATION: VITAL SIGNS: Blood pressure 115/56, heart rate 68, temperature 97.6, respiration 32. HEENT: No icterus or pallor. NECK: No JVD. CHEST: Diffuse bilateral rhonchi. HEART: S1, S2 regular. EXTREMITIES: 2+ pitting edema. LABORATORIES: Today's SMA-7 is within normal limits, except for BUN and creatinine of 45 and 1.6. T daniel's calcium is 14.4, hemoglobin and hematocrit 11.7 and 37.7. White count 12.3, platelet count __ ___. Abdominal ultrasound: Bilateral upper renal cysts, no hydronephrosis or obstructing calc ulus, echogenic liver seen in the setting of hepatic parenchymal disease, incidentally a small right pleural effusion. Head CT scan report is still pending. ASSESSMENT: 1. Paroxysmal atrial fibrillation; however, slow V-tach cannot be completely ruled out. 2. Coronary artery disease with recent coronary stenting last month at [facility]. 3. Metastatic uterine cancer. 4. History of deep venous thrombosis and pulmonary embolism, status post inferior vena cava filter p lacement. 5. Chronic renal insufficiency. 6. Hypercalcemia. RECOMMENDATIONS: Continue aspirin 81 mg once a day, Betapace at 80 mg twice a day, Cardizem 60 mg q. 6 hours, amiodarone 200 mg twice a day, Eliquis 5 mg twice a day, normal saline 150 mL an hour. Inc rease Lasix to 40 mg intravenously twice a day. Ranjith Dougherty MD cc: [id number] TT: 10/05/2016 18:41:58 Confirmation # [id number] Dictation # [id number] mn
--- NOTE | 2016-10-05 22:53 | PN ---
DATE: 10/05/2016 LOCATION: The patient is located in ICU bed 9. REQUESTING PHYSICIAN: Dr. Morro Polanco. REASON FOR RENAL CONSULTATION: Acute renal failure, hyperkalemia and hypercalcemia. HISTORY OF PRESENT ILLNESS: The patient is a 71-year-old obese female with a history of longstanding hypertension, diabetes, uterine CA, CHF, AICD, status post stent placement, who was found to have a breast mass, status post biopsy of the lump and also biopsy of the vertebra consistent with metastatic carcinoma of the spine, mostly the breast as the primary source and biopsy of the breast consistent with invasive ductal carcinoma. The patient was recently admitted to the custodial from the [facility] and then brought to the [facility] with altered mental status and elevated troponins , status post cardiac catheterization, found to have nonobstructive coronary disease and altered mental status. The patient was monitored in ICU. The patient is also found to have severe hypercalcemia on admission, started on IV fluids and calcitonin. The patient is slightly better now, response to verbal stimuli, following simple commands and not in distress. PHYSICAL EXAMINATION: VITAL SIGNS: As follows: Blood pressure 132/58, pulse 69, respirations about 25, and temperature 97.7. Her I's and O's in the last 24 hours, intake is 5130 and output is 1415. GENERAL: The patient is a 71-year-old female, obese. HEENT: Pupils normal, reactive to light and accommodation. Conjunctivae are pink. Sclerae anicteric and tongue is not dry. NECK: No thyroid enlargement. LUNGS: Symmetric on both sides. Bilateral breath sounds present. No crackles. CARDIOVASCULAR: S1 apex in the fifth intercostal space midclavicular line. S1 and S2 audible. No murmur or gallop. The patient has a pacemaker in the left subclavian region. The patient has a left breast lump present. ABDOMEN: Normal in appearance, soft, tympanic. No guarding, no rigidity. No hepatosplenomegaly. CENTRAL NERVOUS SYSTEM: The patient is drowsy, arousable, following simple commands today and oriented x 2. Cranial nerves II-XII grossly intact. Sensory and motor system is within normal limits. EXTREMITIES: No cyanosis, no clubbing, no edema. CURRENT MEDICATIONS: Include as follows: Aspirin 81 mg daily, and Azactam 1 gram every 12 hours, Bacid 1 capsule p.o. daily and Sotalol 80 mg p.o. b.i.d., Cardizem 60 mg p.o. q. 6 hours and Effient 10 mg p.o. daily, Eliquis 5 mg p.o. b.i.d., Lasix 40 mg IV b.i.d. and Miacalcin 200 units subcutaneously daily, Protonix 40 mg IV daily, Pulmicort 0.5 mg inhaler q. 12 hours and IV fluids, normal saline at 150 mL per hour. LABORATORY DATA: Include as follows: As of 10/05/2016, WBC 12.3, hemoglobin 11.7, hematocrit 37.7, platelet 178. Sodium 145, potassium 3.6, chloride 106, CO2 28, BUN 45, creatinine 1.6, and glucose 71, calcium 14.4, phosphorus 4.4, magnesium 2.2, total bilirubin 0.7, AST 67, ALT 107, alkaline phosphatase is 118 , total protein 5.9, albumin is 2.9. Vancomycin 10.3 and blood culture x 2 negative day 1 and urine culture is positive for gram-negative rods. Identification and sensitivity is pending. SUMMARY: The patient is a 71-year-old elderly obese female with hypertension, diabetes, coronary artery disease status post pacemaker, uterine cancer and vertebral mass positive for metastatic disease and left breast cancer. Was admitted with altered mental status and elevated troponins, status post cardiac catheterization consistent with nonobstructive coronary disease with elevated calcium level and also increased BUN and creatinine. 1. Nonoliguric acute renal failure, most likely secondary to intravascular volume depletion and poor p.o. intake. 2. Dehydration. 3. Hypercalcemia, most likely secondary to metastatic breast cancer. 4. Urinary tract infection. 5. Altered mental status, improving, rule out metastasis to the brain. PLAN: Continue IV fluids at 150 mL per hour and consider Lasix once patient is well hydrated and status post ADD 60 mg IV piggyback x 1 yesterday. Continue to monitor calcium levels. Will follow with you. Thank you for allowing me to participate in your patient's care. Overall, prognosis is very poor. The patient is a DNR and DNI. Augusta Kelley MD cc: [id number] TT: 10/05/2016 22:52:36 Confirmation # [id number] Dictation # [id number] mn [id number]
[2016-10-06] MEDS: (Novolin R) Insulin Human Regular 100 units/ml vial SC SCH ×4 (00:20→18:05)
[2016-10-06] MEDS: Sodium Chloride 0.9% 1,000 ML IV SCH ×3 (01:55→10:25)
[2016-10-06] MEDS: Aztreonam 1 GM in Sodium Chloride 0.9% 100 ML IVPB SCH ×2 (05:50→18:01)
[2016-10-06 06:23] LABS: HEMATOCRIT 35.8 % (34.0-47.0); MEAN CORPUSCULAR HEMOGLOBIN 26.7 pg (27.0-31.0); RED CELL DISTRIBUTION WIDTH 18.9 % (11.5-14.5); WHITE BLOOD COUNT 10.8 K/uL (4.8-10.8)
[2016-10-06 06:42] LABS: POTASSIUM 3.4 mmol/L (3.6-5.2)
[2016-10-06 06:44] LABS: ALB/GLOB RATIO 0.9 (1.0-2.1); BILIRUBIN,TOTAL 0.3 mg/dL (0.2-1.3); TOTAL PROTEIN 5.6 g/dL (6.3-8.3)
[2016-10-06 06:45] LABS: CALCIUM 12.8 mg/dl (8.6-10.4); MAGNESIUM 1.9 mg/dL (1.6-2.3); PHOSPHOROUS 2.3 mg/dL (2.5-4.5)
[2016-10-06] MEDS ORDERED: Potassium Chloride 20 mEq 100 ML IVPB ONE (07:29)
[2016-10-06] MEDS: Budesonide 0.5 mg/2 ml Inhal Susp UD IH SCH (07:34)
--- NOTE | 2016-10-06 08:16 | PN ---
DATE: 10/06/2016 I saw the patient in the intensive care unit. Her hands are in mittens and she is sort of restrained a little bit from pulling out tubes. She is alert, a little incoherent. No apparent distress or pain. The monitor shows AFib in the 100s. She is on Cardizem p.o. for that. Will see what cardiology wants to do. PHYSICAL EXAMINATION: VITAL SIGNS: Right now are 106 pulse, 131/69 blood pressure, 97 temperature, 30 respiratory rate, 93% O2 sat on oxygen. HEENT: Head is atraumatic, normocephalic. She does not look at you when you talk to her; she is all over, definitely distracted. Maybe brain mets versus metabolic encephalopathy. Throat is dry. NECK: Supple. HEART: Irregular rate and tachycardic. LUNGS: Decreased breath sounds, poor inspiration, but clear for the most part. No wheezes, no rhonchi and rales. ABDOMEN: Morbidly obese. No apparent tenderness. Decreased bowel sounds. EXTREMITIES: Upper extremities are in mittens and restrained. Lower extremities have trace edema. MEDICATIONS: She is currently on aspirin, aztreonam, Bacid, Betapace, Cardizem , Cordarone, Effient, Eliquis, Lasix, Miacalcin, Novolin insulin, Protonix, Pulmicort and IV fluids. LABORATORY DATA: She has a 145 sodium, potassium 3.6, BUN 45, creatinine 1.6. Last sugar was 124, calcium 14.4, phosphorus 4.4, magnesium 2.2. AST is 67, ALT is 107, alkaline phosphatase 118. White count is down to 10.8 (this is the best it has been), 11.1 hemoglobin, 35.8 hematocrit with 165 platelets. She is being seen by numerous physicians: Renal, cardiology, oncology/ hematology and infectious disease. She has numerous problems. 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 Multiple treatments for her. A CAT scan of the head that was done 2 days ago has not been reported yet; I would like to get that result. Will check her labs tomorrow. I reached out to family; they did not call me back. She is now a DNR though, which is good. Will continue with aggressive treatment and care.She will stay in the Intensive care unit and has a very poor prognosis. Morro Polanco DO cc: [id number] TT: 10/06/2016 08:16:22 Confirmation # [id number] Dictation # [id number] mn [id number]
--- NOTE | 2016-10-06 08:23 | CP.CCUPN ---
Addendum entered and electronically signed by Talon Waggoner DO 10/06/16 12:04: TLC in place in left IJ. Kept in place for move to floor due to continued poor IV access. Original Note: <Talon Waggoner - Last Filed: 10/06/16 10:55> CCU Subjective - Physician Review Subjective (Free Text): 10/06/16 08:20 Pt seen and examined at bedside. Nursing reports pt returned to [facility] overnight. Pt oriented to person only, and is wearing mitten restraints. She is tolerating tube feedings. ROS limited due to pt clinical condition, but shakes head 'no' when asked if in any pain. She will be transferred to med/surg floor today. Critical Care Time Spent (in minutes): 45 CCU Objective - Vital Signs / Intake & Output Vital Signs (Last 4 hours): Vital Signs Pulse Resp BP Pulse Ox 10/06/16 07:13 95 H 17 118/59 L 93 L 10/06/16 06:12 106 H 30 H 131/69 93 L 10/06/16 05:13 122/66 Intake and Output (Last 8hrs): Intake & Output 10/05/16 10/06/16 10/06/16 22:59 06:59 14:59 Intake Total 1630 1840 200 Output Total 885 440 50 Balance 745 1400 150 Weight 241 lb 8 oz Intake: Intake, IV Amount 1200 1150 150 Left Proximal Port 1200 1150 150 Internal Jugular Oral 150 Tube Feeding 280 390 50 Other 300 Output: Urine 885 440 50 Urethral (Lobato) 885 440 50 Other: # Bowel Movements 0 - Physical Exam Head: Positive for: Atraumatic, Normocephalic. Negative for: Abrasion, Laceration Pupils: Positive for: PERRL Extroacular Muscles: Positive for: EOMI Conjunctiva: Positive for: Normal Mouth: Positive for: Dry Pharnyx: Positive for: Normal Respiratory/Chest: Positive for: Good Air Exchange, Decreased Breath Sounds. Negative for: Respiratory Distress, Accessory Muscle Use Cardiovascular: Positive for: Irregular Rhythm. Negative for: Murmurs Abdomen: Positive for: Normal Bowel Sounds, Other (morbidly obese). Negative for: Tenderness (no grimacing present), Peritoneal Signs Upper Extremity: Positive for: Normal Inspection, Capillary Refill < 2s. Negative for: Cyanosis, Edema Lower Extremity: Positive for: Edema (Trace, non-pitting) Neurological: Positive for: Other (Pt oriented only to person, aware in hospital , unaware context) Skin: Positive for: Warm, Dry Psychiatric: Positive for: Alert, Oriented x 3 - Medications Active Medications: Active Medications Generic Name Dose Route Start Last Admin Trade Name Freq PRN Reason Stop Dose Admin Amiodarone HCl 200 mg 10/05/16 10:00 10/05/16 17:44 Cordarone PO 200 mg BID NIK Administration Apixaban 5 mg 10/04/16 20:30 10/05/16 17:45 Eliquis PO 5 mg BID NIK Administration Aspirin 81 mg 10/05/16 10:15 10/05/16 10:36 Aspirin Chewable PO 81 mg DAILY NIK Administration Budesonide 0.5 mg 10/04/16 08:00 10/06/16 07:34 Pulmicort Respules IH 0.5 mg RQ12 NIK Administration Calcitonin [place] 200 iu 10/04/16 10:00 10/05/16 10:24 Miacalcin NS 1 spr DAILY NIK Administration Diltiazem HCl 60 mg 10/05/16 10:00 10/06/16 05:50 Cardizem PO 60 mg Q6 NIK Administration Furosemide 40 mg 10/05/16 18:19 Lasix IVP BID NIK Sodium Chloride 1,000 mls @ 150 mls/hr 10/04/16 04:15 10/06/16 07:55 Sodium Chloride 0.9% IV 150 mls/hr .Q6H40M NIK Administration Aztreonam 1 gm/ Sodium 100 mls @ 200 mls/hr 10/04/16 18:00 10/06/16 05:50 Chloride IVPB 200 mls/hr Q12H NIK Administration Potassium Chloride 100 mls @ 50 mls/hr 10/06/16 07:29 10/06/16 07:52 Potassium Chloride 20 Meq/100 Ml IVPB 10/06/16 09:28 50 mls/hr ONCE ONE Administration Insulin Human Regular 0 unit 10/04/16 18:00 10/06/16 05:51 Novolin R SC Not Given Q6H NIK Protocol Lactobacillus Acidophilus 1 cap 10/04/16 10:00 10/05/16 10:26 Bacid Acidophilus PO 1 cap DAILY NIK Administration Pantoprazole Sodium 40 mg 10/04/16 16:45 10/05/16 09:55 Protonix Inj IVP 40 mg DAILY NIK Administration Prasugrel 10 mg 10/04/16 10:00 10/05/16 10:27 Effient PO 10 mg DAILY NIK Administration Sotalol HCl 80 mg 10/04/16 10:00 10/05/16 17:44 Betapace PO 80 mg BID NIK Administration - Patient Studies Lab Studies: Microbiology Studies 10/04/16 10:45 Blood Culture - Preliminary Blood NO GROWTH AFTER 24 HOURS 10/04/16 Unknown Urine Culture - Preliminary Urine,Lobato Gram Negative Solo Lab Studies 10/06/16 10/06/16 10/06/16 Range/Units 06:06 05:33 00:05 WBC 10.8 (4.8-10.8) K/uL RBC 4.17 (3.80-5.20) Mil/uL Hgb 11.1 (11.0-16.0) g/dL Hct 35.8 (34.0-47.0) % MCV 86.0 (81.0-99.0) fL MCH 26.7 L (27.0-31.0) pg MCHC 31.0 L (33.0-37.0) g/dL RDW 18.9 H (11.5-14.5) % Plt Count 165 (130-400) K/uL MPV 10.0 (7.2-11.7) fL Sodium 148 (132-148) mmol/L Potassium 3.4 L (3.6-5.2) mmol/L Chloride 114 H (98-107) mmol/L Carbon Dioxide 27 (22-30) mmol/L Anion Gap 10 (10-20) BUN 34 H (7-17) mg/dL Creatinine 1.2 (0.7-1.2) MG/DL Est GFR ( Amer) 53 Est GFR (Non-Af Amer) 44 POC Glucose (mg/dL) 124 H 88 (65-110) mg/dL Random Glucose 94 (65-105) mg/dL Calcium 12.8 H (8.6-10.4) mg/dl Phosphorus 2.3 L (2.5-4.5) mg/dL Magnesium 1.9 (1.6-2.3) mg/dL Total Bilirubin 0.3 (0.2-1.3) mg/dL AST 63 H (14-36) U/L ALT 87 H (9-52) U/L Alkaline Phosphatase 135 H (38-126) U/L Total Protein 5.6 L (6.3-8.3) g/dL Albumin 2.6 L (3.5-5.0) g/dL Globulin 3.0 (2.2-3.9) gm/dL Albumin/Globulin Ratio 0.9 L (1.0-2.1) 10/05/16 10/05/16 10/05/16 Range/Units 17:47 12:23 11:58 WBC (4.8-10.8) K/uL RBC (3.80-5.20) Mil/uL Hgb (11.0-16.0) g/dL Hct (34.0-47.0) % MCV (81.0-99.0) fL MCH (27.0-31.0) pg MCHC (33.0-37.0) g/dL RDW (11.5-14.5) % Plt Count (130-400) K/uL MPV (7.2-11.7) fL Sodium (132-148) mmol/L Potassium (3.6-5.2) mmol/L Chloride (98-107) mmol/L Carbon Dioxide (22-30) mmol/L Anion Gap (10-20) BUN (7-17) mg/dL Creatinine (0.7-1.2) MG/DL Est GFR ( Amer) Est GFR (Non-Af Amer) POC Glucose (mg/dL) 76 213 H 65 (65-110) mg/dL Random Glucose (65-105) mg/dL Calcium (8.6-10.4) mg/dl Phosphorus (2.5-4.5) mg/dL Magnesium (1.6-2.3) mg/dL Total Bilirubin (0.2-1.3) mg/dL AST (14-36) U/L ALT (9-52) U/L Alkaline Phosphatase (38-126) U/L Total Protein (6.3-8.3) g/dL Albumin (3.5-5.0) g/dL Globulin (2.2-3.9) gm/dL Albumin/Globulin Ratio (1.0-2.1) Laboratory Results - last 24 hr 10/05/16 10/05/16 10/05/16 11:58 12:23 17:47 WBC RBC Hgb Hct MCV MCH MCHC RDW Plt Count MPV Sodium Potassium Chloride Carbon Dioxide Anion Gap BUN Creatinine Est GFR ( Amer) Est GFR (Non-Af Amer) POC Glucose (mg/dL) 65 213 H 76 Random Glucose Calcium Phosphorus Magnesium Total Bilirubin AST ALT Alkaline Phosphatase Total Protein Albumin Globulin Albumin/Globulin Ratio 10/06/16 10/06/16 10/06/16 00:05 05:33 06:06 WBC 10.8 RBC 4.17 Hgb 11.1 Hct 35.8 MCV 86.0 MCH 26.7 L MCHC 31.0 L RDW 18.9 H Plt Count 165 MPV 10.0 Sodium 148 Potassium 3.4 L Chloride 114 H Carbon Dioxide 27 Anion Gap 10 BUN 34 H Creatinine 1.2 Est GFR ( Amer) 53 Est GFR (Non-Af Amer) 44 POC Glucose (mg/dL) 88 124 H Random Glucose 94 Calcium 12.8 H Phosphorus 2.3 L Magnesium 1.9 Total Bilirubin 0.3 AST 63 H ALT 87 H Alkaline Phosphatase 135 H Total Protein 5.6 L Albumin 2.6 L Globulin 3.0 Albumin/Globulin Ratio 0.9 L Fingerstick Blood Sugar Results: 124 Review of Systems - Review of Systems Systems not reviewed;Unavailable: Altered Mental Status Assessment/Plan - Assessment and Plan (Free Text) Assessment: 71 F female with PMHx significant for uterine CA, mets to left breast/ bone, hypercalcemia, DM CHF, Afib, HTN, HLD, DVT/PE, who is s/p cardiac cath. Cath showed no coronary blockages. CT head showed questionable mets to brain. Plan: Neuro: Altered mental status - Pt oriented to person only, unaware of context of admission Neurochecks q6H CT head (10/04/16): Questionable mets to brain (wet read, f/u official read) Cardio: Troponin I, II, III - elevated but downtrended (0.361, 0.842, 0.4970) EKG (10/04): (field: aflutter - 150mg amiodarone; cardioverted twice). EKG in ED : new LBBB compared to prior. Recently hospitalization at [facility] (08/2016). Cardiac catheterization with bare metal stent placement on 09/01/16. Cardiac Cath (10/04/16): by Dr. Rocha, showed no coronary blockages Consulted Dr Tenorio - Continue Amiodarone, Eliquis, Effient, Cardizem, Betaspace Consulted Dr. Francois - will interrogate device and reprogram if needed ECHO (10/04/16): Technically limited. Mild to moderate concentric LVH. Preserved contractility. Right ventricular systolic fxn grossly normal. Linear density anterior to right ventricular free wall of unclear etiology. Mitral valve has normal structure (see full report). Rapid Afib overnight - CHADS2 score: 3 pts (CHF, HTN, DM; High risk ~6% risk of event per year if no coumadin) - HAS-BLED score: 2pts (Age >65, Antiplatelet agents, Risk of major bleed ~ 5.8% ) Hx of NSTEMIs per PMD Dr. Polanco AICD in left chest Eliquis 5mg PO BID Effient 10mg PO daily ASA 81mg PO Daily Amiodarone 200mg PO BID Cardizem 60mg PO q6h Pulm: Pt on 4L O2; O2 sat 94% Abdominal breathing with tachypnea Pulmicort capsules 0.5 mg IH RQ12 Endo: Diabetes Sliding scale - Novolin R Accucheck q6H Maintain Euglycemia GI: NG tube placed - start tube feedings Diabetisource, Goal: 50 - 150cc free water flush q6h Transaminitis: LFTs/Alk phos, elevated but stable - US abdomen (10/05/16): B/l renal cysts. 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 No hydro or obstructing calculus. Echogenic liver. Incidental small right pleural effusion (see full report) : UTI: UA (10/04/16) 2+ protein, 3+ LE, 1619 WBC, RBC 236, WBC clumps Many, Amorphous sediment, Bacteria Moderate Monitor I/Os Renal: Acute Renal failure Dr. Kelley consulted - NS decreased to 100 mls/hr - increase Lasix to 40mg IV BID BUN/Cr: 34/1.2, improving from admission Monitor I/Os Daily CMP Hem/Onc: Pt with hx of uterine CA w. mets to Left breast, bone, lung - Breast CA: hormone positive, her [address] Schultz consulted Hypercalcemia - believed secondary to metastatic breast CA - 14.9 @ presentation, improved this AM 12.8 - Continue Pamidronate - Continue Calcitonin [address] Mack, ID, consulted - Continue Azactam (Day 3, started 10/04/16) 1 gm IV Q12H (renally dosed) H&H stable - Type and screen Daily CBC ID: Leukocytosis: resolved Dr. Mack, ID, consulted - Continue Azactam 1 gm IV Q12H (renally dosed) - Random Vanco level 10.35 - urine cx (10/04/16): Gram negative solo, proteus mirabilis - sensitive to Azactam - blood cx (10/04/16): No Growth for 24 hrs x 2 Daily CBC Prophylaxis: GI: Protonix 40mg IV Daily DVT: contraindicated due to previous placement of IVC filter Palliative consult: POLST form signed DNR/DNI <Bertin Woodruff - Last Filed: 10/06/16 17:21> CCU Objective - Vital Signs / Intake & Output Vital Signs (Last 4 hours): Vital Signs Temp Pulse Resp BP Pulse Ox 10/06/16 16:49 99 H 10/06/16 15:35 97.9 F 99 H 24 137/76 94 L Intake and Output (Last 8hrs): Intake & Output 10/06/16 10/06/16 10/06/16 06:59 14:59 22:59 Intake Total 1840 1830 Output Total 440 140 Balance 1400 1690 Weight 241 lb 8 oz Intake: Intake, IV Amount 1150 1100 Left Proximal Port 1150 450 Internal Jugular Left Distal Port 100 Left Proximal Port 550 Oral 330 Tube Feeding 390 400 Other 300 Output: Urine 440 140 Urethral (Lobato) 440 140 Other: # Voids Urethral ([place]obato) 100 # Bowel Movements 0 - Medications Active Medications: Active Medications Generic Name Dose Route Start Last Admin Trade Name Freq PRN Reason Stop Dose Admin Amiodarone HCl 200 mg 10/05/16 10:00 10/06/16 09:23 Cordarone PO 200 mg BID NIK Administration Apixaban 5 mg 10/04/16 20:30 10/06/16 09:23 Eliquis PO 5 mg BID NIK Administration Aspirin 81 mg 10/05/16 10:15 10/06/16 09:23 Aspirin Chewable PO 81 mg DAILY NIK Administration Budesonide 0.5 mg 10/04/16 08:00 10/06/16 07:34 Pulmicort Respules IH 0.5 mg RQ12 NIK Administration Calcitonin [place] 200 iu 10/04/16 10:00 10/06/16 09:23 Miacalcin NS 1 spr DAILY NIK Administration Diltiazem HCl 60 mg 10/05/16 10:00 10/06/16 11:02 Cardizem PO 60 mg Q6 NIK Administration Furosemide 40 mg 10/05/16 18:19 10/06/16 09:08 Lasix IVP 40 mg BID NIK Administration Aztreonam 1 gm/ Sodium 100 mls @ 200 mls/hr 10/04/16 18:00 10/06/16 05:50 Chloride IVPB 200 mls/hr Q12H NIK Administration Sodium Chloride 1,000 mls @ 100 mls/hr 10/06/16 10:39 10/06/16 10:58 Sodium Chloride 0.9% IV 100 mls/hr .Q10H NIK Administration Insulin Human Regular 0 unit 10/04/16 18:00 10/06/16 11:41 Novolin R SC Not Given Q6H [facility] Protocol Lactobacillus Acidophilus 1 cap 10/04/16 10:00 10/06/16 09:21 Bacid Acidophilus PO 1 cap DAILY NIK Administration Metoprolol Tartrate 2.5 mg 10/06/16 16:34 Lopressor IVP 10/06/16 16:35 BID ONE Pantoprazole Sodium 40 mg 10/04/16 16:45 10/06/16 09:08 Protonix Inj IVP 40 mg DAILY NIK Administration Prasugrel 10 mg 10/04/16 10:00 10/06/16 09:22 Effient PO 10 mg DAILY NIK Administration Sotalol HCl 80 mg 10/04/16 10:00 10/06/16 09:23 Betapace PO 80 mg BID NIK Administration - Patient Studies Lab Studies: Microbiology Studies 10/04/16 10:45 Blood Culture - Preliminary Blood NO GROWTH AFTER 48 HOURS 10/04/16 Unknown Urine Culture - Final Urine,Lobato Proteus Mirabilis 10/04/16 04:43 MRSA Culture (Admit) - Final Nose MRSA NOT DETECTED Lab Studies 10/06/16 10/06/16 10/06/16 Range/Units 11:32 06:06 05:33 WBC 10.8 (4.8-10.8) K/uL RBC 4.17 (3.80-5.20) Mil/uL Hgb 11.1 (11.0-16.0) g/dL Hct 35.8 (34.0-47.0) % MCV 86.0 (81.0-99.0) fL MCH 26.7 L (27.0-31.0) pg MCHC 31.0 L (33.0-37.0) g/dL RDW 18.9 H (11.5-14.5) % Plt Count 165 (130-400) K/uL MPV 10.0 (7.2-11.7) fL Sodium 148 (132-148) mmol/L Potassium 3.4 L (3.6-5.2) mmol/L Chloride 114 H (98-107) mmol/L Carbon Dioxide 27 (22-30) mmol/L Anion Gap 10 (10-20) BUN 34 H (7-17) mg/dL Creatinine 1.2 (0.7-1.2) MG/DL Est GFR ( Amer) 53 Est GFR (Non-Af Amer) 44 POC Glucose (mg/dL) 117 H 124 H (65-110) mg/dL Random Glucose 94 (65-105) mg/dL Calcium 12.8 H (8.6-10.4) mg/dl Phosphorus 2.3 L (2.5-4.5) mg/dL Magnesium 1.9 (1.6-2.3) mg/dL Total Bilirubin 0.3 (0.2-1.3) mg/dL AST 63 H (14-36) U/L ALT 87 H (9-52) U/L Alkaline Phosphatase 135 H (38-126) U/L Total Protein 5.6 L (6.3-8.3) g/dL Albumin 2.6 L (3.5-5.0) g/dL Globulin 3.0 (2.2-3.9) gm/dL Albumin/Globulin Ratio 0.9 L (1.0-2.1) 10/06/16 10/05/16 Range/Units 00:05 17:47 WBC (4.8-10.8) K/uL RBC (3.80-5.20) Mil/uL Hgb (11.0-16.0) g/dL Hct (34.0-47.0) % MCV (81.0-99.0) fL MCH (27.0-31.0) pg MCHC (33.0-37.0) g/dL RDW (11.5-14.5) % Plt Count (130-400) K/uL MPV (7.2-11.7) fL Sodium (132-148) mmol/L Potassium (3.6-5.2) mmol/L Chloride (98-107) mmol/L Carbon Dioxide (22-30) mmol/L Anion Gap (10-20) BUN (7-17) mg/dL Creatinine (0.7-1.2) MG/DL Est GFR ( Amer) Est GFR (Non-Af Amer) POC Glucose (mg/dL) 88 76 (65-110) mg/dL Random Glucose (65-105) mg/dL Calcium (8.6-10.4) mg/dl Phosphorus (2.5-4.5) mg/dL Magnesium (1.6-2.3) mg/dL Total Bilirubin (0.2-1.3) mg/dL AST (14-36) U/L ALT (9-52) U/L Alkaline Phosphatase (38-126) U/L Total Protein (6.3-8.3) g/dL Albumin (3.5-5.0) g/dL Globulin (2.2-3.9) gm/dL Albumin/Globulin Ratio (1.0-2.1) Laboratory Results - last 24 hr 10/05/16 04 04 17:47 00:05 05:33 WBC RBC Hgb Hct MCV MCH MCHC RDW Plt Count MPV Sodium Potassium Chloride Carbon Dioxide Anion Gap BUN Creatinine Est GFR ( Amer) Est GFR (Non-Af Amer) POC Glucose (mg/dL) 76 88 124 H Random Glucose Calcium Phosphorus Magnesium Total Bilirubin AST ALT Alkaline Phosphatase Total Protein Albumin Globulin Albumin/Globulin Ratio 10/06/16 10/06/16 06:06 11:32 WBC 10.8 RBC 4.17 Hgb 11.1 Hct 35.8 MCV 86.0 MCH 26.7 L MCHC 31.0 L RDW 18.9 H Plt Count 165 MPV 10.0 Sodium 148 Potassium 3.4 L Chloride 114 H Carbon Dioxide 27 Anion Gap 10 BUN 34 H Creatinine 1.2 Est GFR ( Amer) 53 Est GFR (Non-Af Amer) 44 POC Glucose (mg/dL) 117 H Random Glucose 94 Calcium 12.8 H Phosphorus 2.3 L Magnesium 1.9 Total Bilirubin 0.3 AST 63 H ALT 87 H Alkaline Phosphatase 135 H Total Protein 5.6 L Albumin 2.6 L Globulin 3.0 Albumin/Globulin Ratio 0.9 L Attending/Attestation - Attestation I have personally seen and examined this patient.: Yes I have fully participated in the care of the patient.: Yes I have reviewed all pertinent clinical information: Yes Notes (Text): 10/06/16 17:20 patient seen and examined in the intensive care unit. Case discussed with house staff in the morning rounds. 71 F female with PMHx significant for uterine CA, mets to left breast/ bone, hypercalcemia, DM CHF, Afib, HTN, HLD, DVT/PE, who is s/p cardiac cath. Cath showed no coronary blockages. CT head showed questionable mets to brain. Patient DNR/DNI Continue present treatment as per cardiology Transfer to floor
[2016-10-06] MEDS: Lactobacillus Acidophilus 500 MU Cap PO SCH (09:21)
[2016-10-06] MEDS: Calcitonin 200 Int Units/Inh Nasal Spray (3.7 ml) NS SCH (09:23)
--- NOTE | 2016-10-06 09:56 | CP.PCM.PN ---
<Sarabjit Ellis - Last Filed: 10/06/16 16:36> Subjective - Date & Time of Evaluation Date of Evaluation: 10/06/16 Time of Evaluation: 09:53 - Subjective Subjective: Cardiology Progress Note Dr. Francois Patient seen and examined at the bedside. The patient is in no acute distress. No acute events overnight. The nursing staff reports no issues. The patient remains incomprehensible. Patient has soft restrains on B/L hands. ROS unobtainable due to condition. Objective - Vital Signs/Intake and Output Vital Signs (last 24 hours): Temp Pulse Resp BP Pulse Ox 97.5 F L 111 H 42 H 115/66 91 L 10/06/16 08:00 10/06/16 09:12 10/06/16 09:12 10/06/16 09:12 10/06/16 09:14 Intake and Output: 10/06/16 10/06/16 06:59 18:59 Intake Total 2600 730 Output Total 925 140 Balance 1675 590 - Medications Medications: Current Medications Amiodarone HCl (Cordarone) 200 mg PO BID [facility] Last Admin: 10/06/16 09:23 Dose: 200 mg Apixaban (Eliquis) 5 mg PO BID [facility] Last Admin: 10/06/16 09:23 Dose: 5 mg Aspirin (Aspirin Chewable) 81 mg PO DAILY [facility] Last Admin: 10/06/16 09:23 Dose: 81 mg Budesonide (Pulmicort Respules) 0.5 mg IH RQ12 [facility] Last Admin: 10/06/16 07:34 Dose: 0.5 mg Calcitonin [place] (Miacalcin) 200 iu NS DAILY [facility] Last Admin: 10/06/16 09:23 Dose: 1 spr Diltiazem HCl (Cardizem) 60 mg PO Q6 [facility] Last Admin: 10/06/16 05:50 Dose: 60 mg Furosemide (Lasix) 40 mg IVP BID [facility] Last Admin: 10/06/16 09:08 Dose: 40 mg Sodium Chloride (Sodium Chloride 0.9%) 1,000 mls @ 150 mls/hr IV .Q6H40M [facility] Last Admin: 10/06/16 07:55 Dose: 150 mls/hr Aztreonam 1 gm/ Sodium (Chloride) 100 mls @ 200 mls/hr IVPB Q12H [facility] Last Admin: 10/06/16 05:50 Dose: 200 mls/hr Insulin Human Regular (Novolin R) 0 unit SC Q6H [facility] PRN Reason: Protocol Last Admin: 10/06/16 05:51 Dose: Not Given Lactobacillus Acidophilus (Bacid Acidophilus) 1 cap PO DAILY [facility] Last Admin: 10/06/16 09:21 Dose: 1 cap Pantoprazole Sodium (Protonix Inj) 40 mg IVP DAILY [facility] Last Admin: 10/06/16 09:08 Dose: 40 mg Prasugrel (Effient) 10 mg PO DAILY [facility] Last Admin: 10/06/16 09:22 Dose: 10 mg Sotalol HCl (Betapace) 80 mg PO BID [facility] Last Admin: 10/06/16 09:23 Dose: 80 mg - Labs Labs: 10/06/16 06:06 10/06/16 06:06 PT 11.9 SECONDS (9.7-12.2) 10/04/16 08:26 INR 1.1 10/04/16 08:26 APTT 36 SECONDS (21-34) H D 10/04/16 17:33 - Constitutional Appears: Confused, Chronically Ill - Head Exam Head Exam: ATRAUMATIC, NORMAL INSPECTION, NORMOCEPHALIC - Eye Exam Eye Exam: EOMI - ENT Exam ENT Exam: Mucous Membranes Moist - Respiratory Exam Respiratory Exam: Clear to Ausculation Bilateral, NORMAL BREATHING PATTERN. absent: Accessory Muscle Use, Rhonchi, Wheezes - Cardiovascular Exam Cardiovascular Exam: Irregular Rhythm (irregularly), +S1, +S2. absent: REGULAR RHYTHM, RRR - GI/Abdominal Exam GI & Abdominal Exam: Soft, Normal Bowel Sounds. absent: Tenderness - Extremities Exam Extremities Exam: Full ROM, Normal Capillary Refill, Normal Inspection, Pedal Edema (trace). absent: Joint Swelling - Neurological Exam Neurological Exam: Altered, Awake - Skin Skin Exam: Dry, Intact, Normal Color, Warm Assessment and Plan (1) Congestive heart failure Status: h (2) Rapid atrial fibrillation Status: h (3) Primary hyperparathyroidism Status: h (4) AICD (automatic cardioverter/defibrillator) present Status: h - Assessment and Plan (Free Text) Plan: 1.) A-fib - ICD present- will interrogated - a-fib with RVR - will add lopressor 2.5mg IV BID to regimen - continue amiodarone 200mg po bid - continue eliquis 5mg po bid - contoinue aspirin 81mg po daily - continue cardizem 60mg po q6 - continue lasix 20mg IV bid - continue prasugrel 10mg po daily - hemodynamically stable currently - medical management per the intensive care team Case discussed with Dr. Alessandro Ellis PGY1 <Theo Francois - Last Filed: 11/08/16 10:26> Objective - Vital Signs/Intake and Output Vital Signs (last 24 hours): Temp Pulse Resp BP Pulse Ox 97.9 F 88 42 H 93/61 L 94 L 10/06/16 16:00 10/06/16 19:02 10/06/16 19:02 10/06/16 19:02 10/06/16 15:35 - Labs Labs: 10/06/16 06:06 10/06/16 06:06 PT 11.9 SECONDS (9.7-12.2) 10/04/16 08:26 INR 1.1 10/04/16 08:26 APTT 36 SECONDS (21-34) H D 10/04/16 17:33 Attending/Attestation - Attestation I have personally seen and examined this patient.: Yes I have fully participated in the care of the patient.: Yes I have reviewed all pertinent clinical information, including history, physical exam and plan: Yes Notes (Text): 11/08/16 10:26 pt continue amiodorone
--- NOTE | 2016-10-06 10:38 | CP.PCM.PN ---
Subjective - Date & Time of Evaluation Date of Evaluation: 10/06/16 Time of Evaluation: 10:37 - Subjective Subjective: pt seen and examined, follow up consult is dictated #[id number] consider to decrease ns to 100 ml/hr s/p aredia, no calcitonin, ca is improving Objective - Vital Signs/Intake and Output Vital Signs (last 24 hours): Temp Pulse Resp BP Pulse Ox 97.5 F L 114 H 40 H 117/81 94 L 10/06/16 08:00 10/06/16 10:00 10/06/16 10:00 10/06/16 10:01 10/06/16 10:00 Intake and Output: 10/06/16 10/06/16 06:59 18:59 Intake Total 2600 930 Output Total 925 140 Balance 1675 790 - Medications Medications: Current Medications Amiodarone HCl (Cordarone) 200 mg PO BID [facility] Last Admin: 10/06/16 09:23 Dose: 200 mg Apixaban (Eliquis) 5 mg PO BID [facility] Last Admin: 10/06/16 09:23 Dose: 5 mg Aspirin (Aspirin Chewable) 81 mg PO DAILY [facility] Last Admin: 10/06/16 09:23 Dose: 81 mg Budesonide (Pulmicort Respules) 0.5 mg IH RQ12 [facility] Last Admin: 10/06/16 07:34 Dose: 0.5 mg Calcitonin [place] (Miacalcin) 200 iu NS DAILY [facility] Last Admin: 10/06/16 09:23 Dose: 1 spr Diltiazem HCl (Cardizem) 60 mg PO Q6 [facility] Last Admin: 10/06/16 05:50 Dose: 60 mg Furosemide (Lasix) 40 mg IVP BID [facility] Last Admin: 10/06/16 09:08 Dose: 40 mg Sodium Chloride (Sodium Chloride 0.9%) 1,000 mls @ 150 mls/hr IV .Q6H40M [facility] Last Admin: 10/06/16 10:25 Dose: Not Given Aztreonam 1 gm/ Sodium (Chloride) 100 mls @ 200 mls/hr IVPB Q12H [facility] Last Admin: 10/06/16 05:50 Dose: 200 mls/hr Insulin Human Regular (Novolin R) 0 unit SC Q6H [facility] PRN Reason: Protocol Last Admin: 10/06/16 05:51 Dose: Not Given Lactobacillus Acidophilus (Bacid Acidophilus) 1 cap PO DAILY [facility] Last Admin: 10/06/16 09:21 Dose: 1 cap Pantoprazole Sodium (Protonix Inj) 40 mg IVP DAILY [facility] Last Admin: 10/06/16 09:08 Dose: 40 mg Prasugrel (Effient) 10 mg PO DAILY [facility] Last Admin: 10/06/16 09:22 Dose: 10 mg Sotalol HCl (Betapace) 80 mg PO BID [facility] Last Admin: 10/06/16 09:23 Dose: 80 mg - Labs Labs: 10/06/16 06:06 10/06/16 06:06 PT 11.9 SECONDS (9.7-12.2) 10/04/16 08:26 INR 1.1 10/04/16 08:26 APTT 36 SECONDS (21-34) H D 10/04/16 17:33
[2016-10-06] MEDS ORDERED: Sodium Chloride 0.9% 1,000 ML IV SCH (10:39)
--- NOTE | 2016-10-06 11:40 | CT ---
PROCEDURE: CT HEAD WITHOUT CONTRAST. HISTORY: COMPARISON: None available. TECHNIQUE: Axial computed tomography images were obtained through the head/brain without intravenous contrast. Radiation dose: Total exam DLP = 1503.89 mGy-cm. This CT exam was performed using one or more of the following dose reduction techniques: Automated exposure control, adjustment of the mA and/or kV according to patient size, and/or use of iterative reconstruction technique. FINDINGS: HEMORRHAGE: No intracranial hemorrhage. BRAIN: No mass effect or edema. Mild diffuse age-appropriate cerebral atrophy. Probable remote ischemic change left basal ganglia. Mild periventricular white matter lucency consistent with age related microvascular ischemic change. No evidence of acute infarct. VENTRICLES: Unremarkable. No hydrocephalus. CALVARIUM: Calvarium concerning for multiple lucent lesions suspicious for metastatic disease or multiple myeloma. Evaluation with pre and post gadolinium enhanced magnetic resonance imaging is suggested. PARANASAL SINUSES: Unremarkable as visualized. No significant inflammatory changes. MASTOID AIR CELLS: Unremarkable as visualized. No inflammatory changes. OTHER FINDINGS: Nasogastric tube noted. IMPRESSION: No intracranial mass, hemorrhage or evidence of acute infarct. Probable remote ischemic change left basal ganglia. Multiple lucent lesions of the calvarium, suspicious for metastatic disease or multiple myeloma. Recommend gadolinium enhanced magnetic resonance imaging of the brain for evaluation of the calvarial abnormality. Preliminary interpretation of this examination was reported by [facility] at 10:18 p.m. on 10/04/2016. There is discordance of this report with the preliminary interpretation. Hypodensity in the left basal ganglia is felt to most likely reflect remote ischemic change rather than metastasis. However, magnetic resonance imaging with and without gadolinium is nonetheless recommended for evaluation of the numerous lytic calvarial lesions.
--- NOTE | 2016-10-06 14:34 | PN ---
DATE: 10/06/2016 The patient is still lethargic and poorly responsive, mildly tachypneic. PHYSICAL EXAMINATION: VITAL SIGNS: Blood pressure 131/70, heart rate 105, temperature 100, respiration 24. HEENT: Normocephalic. CHEST: Diffuse bilateral rhonchi. HEART: S1, S2 regular. EXTREMITIES: 1-2+ pitting edema. LABORATORIES: Today's hemoglobin and hematocrit 11.1 and 35.8, white count and platelet count are wi thin normal limits. Today's potassium 3.4, BUN and creatinine are 34 and 1.2, calcium has improved t o 12.8. ASSESSMENT: 1. Paroxysmal atrial fibrillation. 2. Consider slow ventricular tachycardia in the meantime. 3. Coronary artery disease, status post recent coronary stenting to the obtuse marginal branch. 4. Metastatic uterine cancer. 5. Breast cancer. 6. Hypokalemia. RECOMMENDATIONS: Continue current aspirin 81 mg once a day, Effient at 10 mg once a day, Cardizem at 60 mg q. 6 hours, Betapace at 80 mg twice a day, Azactam at 1 gram twice a day, Eliquis at 5 mg twic e a day. Potassium chloride 20 mEq intravenous replacement was administered today. The case was dis cussed with the patient's [id number] at the bedside. Conservative cardiac approach is recommend ed for now. Overall, prognosis is very poor. Ranjith Dougherty MD cc: [id number] TT: 10/06/2016 14:34:13 Confirmation # [id number] Dictation # [id number] en
[2016-10-06 16:24] VITALS: TEMP 97.9; O2SAT 94
[2016-10-06] MEDS ORDERED: Metoprolol 1 mg/ml Inj IVP SCH (18:00)
--- NOTE | 2016-10-06 18:55 | CP.PCM.PN ---
Subjective - Date & Time of Evaluation Date of Evaluation: 10/06/16 Time of Evaluation: 09:00 - Subjective Subjective: more arousable confused NAD Objective - Vital Signs/Intake and Output Vital Signs (last 24 hours): Temp Pulse Resp BP Pulse Ox 97.9 F 99 H 24 137/76 94 L 10/06/16 16:00 10/06/16 16:49 10/06/16 16:00 10/06/16 18:03 10/06/16 15:35 Intake and Output: 10/06/16 10/06/16 06:59 18:59 Intake Total 2600 1830 Output Total 925 140 Balance 1675 1690 - Medications Medications: Current Medications Amiodarone HCl (Cordarone) 200 mg PO BID [facility] Last Admin: 10/06/16 18:02 Dose: 200 mg Apixaban (Eliquis) 5 mg PO BID [facility] Last Admin: 10/06/16 18:04 Dose: 5 mg Aspirin (Aspirin Chewable) 81 mg PO DAILY [facility] Last Admin: 10/06/16 09:23 Dose: 81 mg Budesonide (Pulmicort Respules) 0.5 mg IH RQ12 [facility] Last Admin: 10/06/16 07:34 Dose: 0.5 mg Calcitonin [place] (Miacalcin) 200 iu NS DAILY [facility] Last Admin: 10/06/16 09:23 Dose: 1 spr Diltiazem HCl (Cardizem) 60 mg PO Q6 [facility] Last Admin: 10/06/16 18:02 Dose: 60 mg Furosemide (Lasix) 40 mg IVP BID [facility] Last Admin: 10/06/16 18:03 Dose: 40 mg Aztreonam 1 gm/ Sodium (Chloride) 100 mls @ 200 mls/hr IVPB Q12H [facility] Last Admin: 10/06/16 18:01 Dose: 200 mls/hr Sodium Chloride (Sodium Chloride 0.9%) 1,000 mls @ 100 mls/hr IV .Q10H [facility] Last Admin: 10/06/16 10:58 Dose: 100 mls/hr Insulin Human Regular (Novolin R) 0 unit SC Q6H [facility] PRN Reason: Protocol Last Admin: 10/06/16 18:05 Dose: Not Given Lactobacillus Acidophilus (Bacid Acidophilus) 1 cap PO DAILY [facility] Last Admin: 10/06/16 09:21 Dose: 1 cap Metoprolol Tartrate (Lopressor) 2.5 mg IVP BID [facility] Pantoprazole Sodium (Protonix Inj) 40 mg IVP DAILY [facility] Last Admin: 10/06/16 09:08 Dose: 40 mg Prasugrel (Effient) 10 mg PO DAILY [facility] Last Admin: 10/06/16 09:22 Dose: 10 mg Sotalol HCl (Betapace) 80 mg PO BID [facility] Last Admin: 10/06/16 18:02 Dose: 80 mg - Labs Labs: 10/06/16 06:06 10/06/16 06:06 PT 11.9 SECONDS (9.7-12.2) 10/04/16 08:26 INR 1.1 10/04/16 08:26 APTT 36 SECONDS (21-34) H D 10/04/16 17:33 - Constitutional Appears: Non-toxic, Chronically Ill - Head Exam Head Exam: NORMOCEPHALIC - Eye Exam Eye Exam: Normal appearance. absent: Scleral icterus - ENT Exam ENT Exam: Mucous Membranes Dry, Normal External Ear Exam - Neck Exam Neck Exam: absent: Lymphadenopathy - Respiratory Exam Respiratory Exam: Decreased Breath Sounds, Prolonged Expiratory Phase - Cardiovascular Exam Cardiovascular Exam: REGULAR RHYTHM, +S1, +S2 - GI/Abdominal Exam GI & Abdominal Exam: Distended, Soft. absent: Tenderness - Rectal Exam Rectal Exam: Deferred - Exam Exam: NORMAL INSPECTION - Extremities Exam Extremities Exam: Pedal Edema. absent: Calf Tenderness - Back Exam Back Exam: absent: CVA tenderness (L), CVA tenderness (R) Assessment and Plan (1) Congestive heart failure Status: Chronic (2) Hypercalcemia Status: Acute (3) Primary hyperparathyroidism Status: Chronic (4) UTI (urinary tract infection) Status: Acute
[2016-10-06 19:03] VITALS: BP 93/61; PULSE 88; RESP 42
--- NOTE | 2016-10-06 20:25 | CP.PCM.PRO ---
Pronouncement of Note - Clinical Findings Physical Exam: No Response Verbal/Painful Stimuli, Absent Peripheral Pulses{ Carotid & Femoral}, Absent Heart & Breath Sounds, No Pupillary Light Reflex, Pupils Fixed & Dilated - Pronouncement Time Time of Pronouncement of : 20:13 - Notifications Pronouncement Notifications: Family Notified, Atending Notified - N.[place]nie Certificate [place]ED[place] Number: [id number]
--- NOTE | 2016-10-06 23:28 | CON ---
DATE: 10/06/2016 REQUESTING PHYSICIAN: Dr. Morro Polanco REASON FOR FOLLOWUP: Acute renal failure, hypercalcemia, metastatic breast carcinoma. HISTORY OF PRESENT ILLNESS: The patient is a 71-year-old obese elderly female with a histo ry of hypertension, diabetes, coronary artery disease status post stent placement recently, also foun d to have a uterine carcinoma and spinal mass status post biopsy of the spinal mass consistent with m etastatic disease and also left breast mass status post biopsy consistent with invasive ductal carcin katrin. The patient was recently discharged to custodial from the [facility] and then patient was admitted 2 days ago with altered mental status and found to have acute renal failure and hypercal cemia and elevated troponins, status post cardiac catheterization and found to have nonobstructive co ronary disease. The patient is more drowsy today and not responding to verbal stimuli, on ventimask. PHYSICAL EXAMINATION: VITAL SIGNS: Blood pressure is 108/57, pulse 111-120, respirations about 42, saturation about 91-94 and afebrile, temperature 97.5. GENERAL: The patient is a 71-year-old elderly obese female, not responding to verbal stimu li and slightly tachypneic. HEENT: Pupils normal, reactive to light and accommodation. Conjunctivae pink. Sclerae anicteric. Tongue is dry. LUNGS: Symmetric on both sides. Bilateral breath sounds present. CARDIOVASCULAR: [place] in the fifth intercostal space, midclavicular line. S1 and S2 audible. Slight ly tachycardic. ABDOMEN: Normal in appearance, soft, tympanitic. No guarding, no rigidity. CENTRAL NERVOUS SYSTEM: The patient is very drowsy, not responding to verbal stimuli. EXTREMITIES: No cyanosis, no clubbing, no edema. CURRENT MEDICATIONS: Reviewed. Aspirin 81 mg daily, 1 gram q. 12 hours, Bacid 1 capsule p.o. daily and Betapace 80 mg p.o. b.i.d., Cardizem 60 mg p.o. q. 6 hours, amiodarone 200 mg p.o. b.i.d. , Effient 10 mg p.o. daily, Eliquis mg p.o. b.i.d., Lopressor 2.5 mg IV b.i.d. and calcitonin 2 00 international units intranasally daily, morphine sulfate 2 mg IV, Protonix 40 mg IV daily, Pulmico rt 0.5 mg q. 12 hours, IV fluids, normal saline at 150 mL per hour. LABORATORY DATA: As of 10/06/2016, WBC 10.8, hemoglobin 11.1, hematocrit is 35.8, platelet 165. Sod ium 140, potassium 3.4, chloride 114, CO2 27, BUN 34, creatinine 1.2, glucose 124, calcium 12.8 and p hosphorus 2.3, magnesium 1.8, total bilirubin 0.3, AST 63, ALT 87, alkaline phosphatase 135. Total p rotein 5.6, albumin is 2.6 and urine culture positive for Proteus mirabilis and blood culture x 2 neg ative, day #2. SUMMARY: The patient is a 71-year-old elderly obese female with history of hypertension, d iabetes, coronary artery disease, uterine cancer and recently diagnosed with spinal mass with biopsy consistent with metastatic disease and also left breast lump positive for invasive ductal carcinoma, was admitted with hypercalcemia, altered mental status and elevated troponins, status post cardiac ca theterization consistent with nonobstructive coronaries with acute renal failure and hypercalcemia. 1. Acute renal failure secondary to intravascular depletion and hypercalcemia. 2. Hypercalcemia secondary to metastatic breast cancer. 3. Urinary tract infection. 4. Acute mental status change, rule out metastatic brain disease. The patient is a DNR/DNI. Recomm ended to decrease the IV fluids to 100 mL per hour and continue Lasix as needed. Overall, prognosis is very poor. Thank you for allowing me to participate in your patient's care. Case discussed with ICU resident in rounds this morning. Augusta Kelley MD cc: [id number] TT: 10/06/2016 23:27:15 Confirmation # [id number] Dictation # [id number]
--- NOTE | 2016-10-12 08:16 | DS ---
She was in the intensive care unit; she was very ill. She had multiple consults. 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 Moror Polanco DO cc: [id number] TT: 10/12/2016 08:15:31 jn MTDD
== END 2016-10-06 21:32 | DRG 54 ==
LOC: C.ER 01:47 → C.9I 02:37 → C.3T 10-06 12:10 → C.5T 10-06 18:21
PROVIDERS: ADMIT Family Medicine; ATTEND Family Medicine
PROC: 4A023N8 Measurement of Cardiac Sampling and Pressure, Bilateral, Percutaneous Approach (ICD-10-PCS; principal; 2016-10-04)
PROC: B201YZZ Plain Radiography of Multiple Coronary Arteries using Other Contrast (ICD-10-PCS; 2016-10-04)
PROC: B206YZZ Plain Radiography of Right and Left Heart using Other Contrast (ICD-10-PCS; 2016-10-04)
DX: C79.31 Secondary malignant neoplasm of brain (principal); I21.4 Non-ST elevation (NSTEMI) myocardial infarction; G93.41 Metabolic encephalopathy; N17.9 Acute kidney failure, unspecified; I47.2 Ventricular tachycardia; I11.0 Hypertensive heart disease with heart failure; C78.00 Secondary malignant neoplasm of unspecified lung; I48.92 Unspecified atrial flutter; I50.9 Heart failure, unspecified; C79.51 Secondary malignant neoplasm of bone; N39.0 Urinary tract infection, site not specified; I42.9 Cardiomyopathy, unspecified; C50.912 Malignant neoplasm of unspecified site of left female breast; I48.0 Paroxysmal atrial fibrillation; E83.52 Hypercalcemia; E66.01 Morbid (severe) obesity due to excess calories; E78.00 Pure hypercholesterolemia, unspecified; Z88.0 Allergy status to penicillin; Z95.5 Presence of coronary angioplasty implant and graft; E11.9 Type 2 diabetes mellitus without complications; E78.5 Hyperlipidemia, unspecified; Z95.0 Presence of cardiac pacemaker; M17.0 Bilateral primary osteoarthritis of knee; E21.0 Primary hyperparathyroidism; Z87.891 Personal history of nicotine dependence; Z79.4 Long term (current) use of insulin; I25.10 Atherosclerotic heart disease of native coronary artery without angina pectoris; E86.0 Dehydration; Z86.711 Personal history of pulmonary embolism; Z66 Do not resuscitate; E87.6 Hypokalemia